=== PATIENT | female | born 1995 | race Caucasian/White ===

== ENCOUNTER 2021-03-01 13:33 | Emergency (ER) | payer OTHER, SELFPAY ==
[2021-03-01 13:35] VITALS: BP 126/81; PULSE 89; RESP 20; TEMP 36.2; BMI 28.0
--- NOTE | 2021-03-01 14:13 | ED.VIS.GI ---
HPI HPI - GI History of Present Illness Chief Complaint: Abd Pain Informant: patient and spouse/S.O. Narrative Narrative: Increasing mid abdominal pain since 11 AM this morning. States ate a salad symptoms worsen. Nausea vomiting x1 upon arrival. Pain to the back. No abdominal surgery history. No urinary symptoms. Currently nauseated. No history of similar. Occasional alcohol use. Currently on menstrual period. Denies any history of similar symptoms. Took Tylenol early this morning due to stating stomach did not feel well. Had normal bowel movement this morning. Prior similar symptoms: No PFSH PFSH Medical History no medical history Home Medications Tylenol 1 g PO/SL X1 03/01/21 [History Last Taken Unknown] omeprazole 40 mg PO DAILY #30 cap 03/01/21 [Rx Last Taken Unknown] ondansetron 4 mg PO Q6H PRN #10 tab 03/01/21 [Rx Last Taken Unknown] Allergy/AdvReac Type Severity Reaction Status Date / Time Penicillins Allergy Mild allergic Verified 03/01/21 13:51 rxn Social History Smoking Status: Never smoker ROS ROS ED Constitutional Constitutional ED: Denies chills, fever(s) or sweats Eyes Eyes: Denies change in vision ENT ENT ED: Denies dysphagia or sore throat Cardiovascular Cardiovascular: Denies chest pain, leg edema, palpitations or racing heartbeat Respiratory/Chest Respiratory/Chest: Denies cough, dyspnea or dyspnea on exertion Gastrointestinal Gastrointestinal: Reports abdominal pain, nausea and vomiting; Denies diarrhea Genitourinary Genitourinary ED: Denies dysuria, hematuria or urinary frequency Musculoskeletal Musculoskeletal: Denies back pain, extremity pain or neck pain Integumentary Denies rash or wounds Neurologic Neurologic: Denies headache(s), paresthesias or weakness EXAM Physical Exam Const Vital Signs: 03/01/21 13:35 03/01/21 16:32 Temperature 97.2 F L Temperature Source Oral Pulse Rate 89 Respiratory Rate 20 H 18 Blood Pressure 126/81 H 134/84 H Blood Pressure Mean 96 100 Positive well nourished and well developed General Appearance ED: well developed and NAD HEENT Reports moist mucous membranes normocephalic and atraumatic Eyes PERRL, EOMs intact bilaterally and conjunctivae normal General Eye ED: Yes normal appearance of both eyes Neck no lymphadenopathy and supple General: Negative for tenderness Chest Wall Chest: Negative for tenderness Resp normal respiratory effort and normal air movement Effort and Inspection: symmetric chest movement; Negative for respiratory distress Cardio regular rate, regular rhythm and no murmurs Peripheral Pulses: pulses 2+ throughout GI normal to inspection, nondistended, normoactive bowel sounds GI Narrative: Tender palpation mid abdomen there is mild tenderness right upper quadrant. There is no guarding or rebound. Negative Weber's or McBurney's tenderness. Palpation: Negative for guarding or rebound tenderness present Back/Spine no CVA tenderness and no thoracic nor lumbar tenderness Extremity normal to inspection General Extremety ED: Negative for edema or tenderness General Extremity: Negative for edema Neuro oriented x3 and no sensory deficits noted Sensorium / Orientation: awake and alert Skin no rashes or lesions noted and no wounds MDM MDM MDM Narrative Medical decision making narrative: Patient vital signs stable nonsurgical abdomen. Abdominal labs were normal. Is given IV fluids Zofran Toradol reevaluation improvement of symptoms. Reevaluation of abdomen remains soft. Tolerating oral intake. Prescription for Zofran will start her on a PPI with epigastric pain. She follow-up with her PCP. She will monitor her diet specially if symptoms worsen with dairy or fatty foods for potential biliary colic. All questions were answered. Patient is being discharged under pandemic conditions under declared global, national and state disaster activation, with limited medical resources. Patient and community understands this. Results discussed in layman's terms to the patient satisfaction. All questions answered in layman's terms. Patient understands importance of follow-up care as directed. Patient has been instructed to return to the ED immediately if new symptoms, problems, or questions occur. We mutually agree with the plan of disposition. The patient understand that they may call or return with any questions or concerns at any time. Lab Data Attestation: I reviewed the patient's lab results. Labs: Laboratory Results - last 24 hr 03/01/21 03/01/21 03/01/21 15:15 15:15 15:15 WBC 9.3 RBC 4.20 Hgb 11.9 L Hct 36.7 L MCV 87.4 MCH 28.3 MCHC 32.4 RDW Std Deviation 40.9 RDW Coeff of Nicko 12.9 Plt Count 195 MPV 9.1 Immature Gran % (Auto) 0.500 Neut % (Auto) 82.5 H Lymph % (Auto) 8.8 L [place] % (Auto) 7.3 Eos % (Auto) 0.6 Baso % (Auto) 0.3 Absolute Neuts (auto) 7.7 Absolute Lymphs (auto) 0.82 L Nucleated RBC % 0 Sodium 141 Potassium 3.3 L Chloride 110 H Carbon Dioxide 23.0 Anion Gap 8 BUN 11 Creatinine 0.60 Estim Creat Clear Calc 149.79 Est GFR (MDRD) Af Amer 156 Est GFR (MDRD) Non-Af 129 BUN/Creatinine Ratio 18.4 Glucose 94 Calcium 7.4 L Total Bilirubin 0.60 Direct Bilirubin 0.16 AST 10 L ALT 19 Alkaline Phosphatase 64 Total Protein 6.2 L Albumin 3.2 Globulin 3.0 Lipase 40 L Serum , Qual NEGATIVE Discharge Plan Triage Chief Complaint: Abd Pain ED Provider: Neo Woodard Dx/Rx/DC Orders Clinical Impression: Abdominal pain, Vomiting Instructions: Abdominal Pain, ED Diet for Vomiting or ... Prescriptions: New omeprazole 40 mg capsule,delayed release(DR/EC) 40 mg PO DAILY Qty: 30 RF: 0 ondansetron 4 mg tablet,disintegrating 4 mg PO Q6H PRN (Reason: nausea and vomiting) Qty: 10 RF: 0 No Action Tylenol 1 g PO/SL X1 RF: 0 Primary Care Provider: Care Physician,No Primary Referrals: Irma Garcia MD [STAFF PHYSICIAN] - 1 Week Care Physician,No Primary [Primary Care Provider] - Disposition Disposition: Home, Self Care Discharge Date/Time: 03/01/21 16:41
[2021-03-01] MEDS: Ketorolac 15 MG/ML Vial IV (14:29)
[2021-03-01] MEDS: Ondansetron 4 MG/2 ML Vial IV (14:29)
[2021-03-01] MEDS: 0.9% Normal Saline 1,000 ML 1000 ML IV (14:29)
[2021-03-01 15:37] LABS: Internal QC Validated? YES +Cl - CLEAR BKGD; Pregnancy, Serum, hCG Quali. NEGATIVE Negative
[2021-03-01 15:42] LABS: Absolute Lymphocyte Count 0.82 X10^3/uL (0.83-4.51); Absolute Neutrophil Count 7.7 X10^3/uL (2.0-7.7); Basophil# 0.03 X10^3/uL; Basophil% 0.3 % (0-1); Eosinophil# 0.06 X10^3/uL; Eosinophils% 0.6 % (0-5); Hematocrit 36.7 % (37-47); Hemoglobin 11.9 g/dL (12.0-15.0); Lymphocyte # 0.82 X10^3/ul (0.83-4.51); Lymphocyte % 8.8 % (19-41); Mean Corp Hgb Conc 32.4 g/dL (32-36); Mean Corpuscular Hgb 28.3 pg (27.0-32.0); Mean Corpuscular Volume 87.4 fL (81-99); Mean Platelet Vol. 9.1 fl (6.2-12.0); Monocyte# 0.68 X10^3/uL; Monocyte% 7.3 % (0-10); NRBC Flagged by Analyzer 0 % (0-5); Neutrophil # 7.69 X10^3/uL (2.7-7.7); Neutrophil % 82.5 % (47-70); Platelet Count 195 K/mm3 (150-450); RBC Distribution Width CV 12.9 % (11.6-14.6); RBC Distribution Width SD 40.9 fl (35.1-43.9); White Blood Count 9.3 K/mm3 (4.4-11.0)
[2021-03-01 15:43] LABS: AST(SGOT) 10 U/L (15-37); Alanine Aminotransfer ALT/SGPT 19 U/L (13-56); Albumin, Serum 3.2 g/dL (3.2-5.0); Alkaline Phosphatase 64 U/L (45-117); Anion Gap 8 (5-15); BUN 11 mg/dL (7-18); BUN/Creat Ratio 18.4 RATIO (10-20); Bilirubin, Direct 0.16 mg/dL (0.00-0.30); Calcium,Total 7.4 mg/dL (8.5-10.1); Chloride 110 mmol/L (98-107); EST Glomerular Filtration Rate 129 mL/min (>60); Est Glom Filt Rate - Afr Amer 156 mL/min (>60); Estimated Creatinine Clearance 149.79 ml/min; Glucose 94 mg/dL (74-106); Lipase 40 U/L (73-393); Potassium 3.3 mmol/L (3.5-5.1); Protein, Total 6.2 g/dL (6.4-8.2); Sodium Level 141 mmol/L (136-145)
[2021-03-01 16:32] VITALS: BP 134/84; RESP 18
== END 2021-03-01 16:41 | disposition home or self-care (01) ==
PROVIDERS: Emergency Provider Emergency Medicine
DX: R10.13 Epigastric pain (principal); R11.2 Nausea with vomiting, unspecified
CPT/HCPCS: 80048; 80076; 83690; 84703; 85025; 96361; 96374; 96375; 99282; J7030; A4216; J2405

== ENCOUNTER 2025-01-03 19:19 | Inpatient (IN) | payer OTHER, SELFPAY ==
--- OUTSIDE RECORDS SUMMARY | 2025-01-03 19:06 | XMS RPT_ITS | CCD ---
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 Role Phone Unavailable Primary Care Provider Unavailrandall e Willie Hudsona Attending Unavailable Wiswell, Carol Referring Unavailable Care Physician, No Primary Primary Care Unava ilable Willie Hudsona Admitting Unavailable ALISIAAYANNA REEVESFER Referring Unavailable ALISIA, CALLI Attending Unavailable ALISIA, CALLI Referring Unavailable MONICA FRANCE Attending Unavailable WISWELL, CAROL Attending Unavailable ALISIA, CALLI Attending Unavailable WISWELL, CAROL Attending Unavailable ROCHELLE REIS Attending Unavailable ALISIA, CALLI Referring Unavailable CHRISTINE LEYVA Attending Unavailable JOSEPHINE BRUCE Attending Unavail able ROCHELLE REIS Attending Unavailable WISWELL, CAROL Attending Unavailable HAURY, VINOD Referring Unavailable TRAMMELLFIDELIA Attending Unavailable ALISIA, CALLI Referring Unavailable HAURY, VINOD Attending Unavailable ALISIA, CALLI Attending Unavailable GIANNA, ORQUIDEA Referring Unavailable ALISIA, CALLI Attending Unavailable GIANNA, ORQUIDEA Attending Unavailable ALISIA, CALLI Attending Unavailable Allergies Allergy Classification Reported Allergen(s) Allergy Type Date of Onset Reaction(s) Facility (7 sources) Penicillins; Translations: [PENICILLINS] Propensity to adverse reactions to drug 0 Other: See Comments [facility] (3 sources) Penicillins Propensity to adverse reactions to drug 0 Other: See Comments [facility] (1 source) Penicillins Drug allergy (disorder) 1 [facility] Repository Medications Current Medications Medication Drug Class(es) Dates Sig (Normalized) Sig (Original) aspirin 81 mg delayed release oral tablet (20 sources) Platelet Aggregation Inhibitor, Nonsteroidal Anti-inflammatory Drug Start: 05-18-2024 take 1 tablet by mouth once daily aspirin, enteric coated (ECOTRIN LOW STRENGTH) 81 mg EC tablet Indications: 7 weeks gestation of (HCC) Take 1 tablet by mouth once daily. 90 tablet 3 05/18/2024 Active omeprazole 40 mg delayed release oral capsule (1 source) Proton Pump Inhibitor Start: 03-01-2021 End: 05-18-2024 take 1 capsule by mouth once daily omeprazole (PRILOSEC) 40 mg capsule Take 40 mg by mouth once daily. 03/01/2021 05/18/2024 Discontinued ondansetron 4 mg disintegrating oral tablet (1 source) Serotonin-3 Receptor Antagonist Start: 03-01-2021 End: 05-18-2024 take 1 tablet by mouth every six hours as needed ondansetron orally disintegrating (ZOFRAN ODT) 4 mg disintegrating tablet Take 4 mg by mouth every 6 hours as needed. 03/01/2021 05/18/2024 Discontinued vit no.124/iron/folic ( VITAMIN ORAL) (20 sources) vit no.124/iron/folic ( VITAMIN ORAL) Take by mouth once daily. Active Completed/Discontinued Medications Medication Drug Class(es) Dates Sig (Normalized) Sig (Original) amoxicillin 50 mg/ml oral suspension (2 sources) Penicillin-class Antibacterial Start: 10-20-2024 End: 10-20-2024 250 mg, ORAL, ONCE (UP TO 30 DAYS AMB), 1 dose, On Sat10/20/24 at 1500, 125 mg/ml concentration used during today's visit. Give 25mg amoxicillin suspension, wait 30 minutes. If there is no adverse reaction after 30 minutes , administer the remaining 225mg of amoxicillin suspension and monitor for an additional 31 minutes. Vital Signs recorded at baseline, PRN with symptoms, and at oral challenge completion. Refrigerate - Shake Well., Antimicrobial indication: Prophylaxis Start: 10-20-2024 End: 10-20-2024 amoxicillin 250 mg oral liqu id (AMOXIL) Problems Active Problems Problem Classification Problem Date Documented Da te Episodic/Chronic Complications of surgical procedures or medical care (2 sources) Non dose-related adverse reaction to medication; Translations: [Unspecified adverse effect of drug or medicament, initial encounter] Onset: 10-20-2024 10-20-2024 Episodic Diabetes or abnormal glucose tolerance complicating ; childbirth; or the puerperium (1 source) and type 1 diabetes mellitus; Translations: [Pre-existing type 1 diabetes mellitus, in , unspecified trimester] 07-17-2024 Chronic Immunizations and screening for infectious disease (2 sources) Vaccination needed; Translations: [Encounter for immunization] Onset: 10-22-2024 10-22-2024 Episodic Other complications of (9 sources) Obesity; Translations: [Obesity complicating , unspecified trimester] 10-09-2024 Chronic Other complications of (1 source) Obesity complicating , unspecified trimester; Translations: [Obesity in (HCC)] Onset: 12-18-2024 Chronic Other complications of (11 sources) High risk ; Translations: [Supervision of high risk , unspecified, second trimester] 07-17-2024 Episodic Other complications of (1 source) Supervision of high risk , unspecified, third trimester; Translations: [Supervision of high risk in third trimester (HCC)] Onset: 12-18-2024 Episodic Other complications of (1 source) Supervision of high risk , unspecified, second trimester; Translations: [Supervision of high risk in second trimester (HCC)] Onset: 10-09-2024 Episodic Other and delivery including normal (20 sources) with uncertain dates; Translations: [Encounter for supervision of normal , unspecified, unspecified trimester] Onset: 05-18-2024 05-18-2024 Episodic Residual codes; unclassified (1 source) Gestation period, 7 weeks; Translations: [Less than 8 weeks gestation of ] 05-18-2024 Episodic Residual codes; unclassified (1 source) Gestation period, 11 weeks; Translations: [11 weeks gestation of ] 06-19-2024 Episodic Residual codes; unclassified (1 source) Gestation period, 15 weeks; Translations: [15 weeks gestation of ] 07-17-2024 Episodic Residual codes; unclassified (1 source) Gestation period, 12 weeks; Translations: [12 weeks gestation of ] 07-17-2024 Episodic Residual codes; unclassified (2 sources) Gestation period, 23 weeks; Translations: [23 weeks gestation of ] 09-10-2024 Episodic Residual codes; unclassified (1 source) Gestation period, 27 weeks; Translations: [27 weeks gestation of ] 10-09-2024 Episodic Residual codes; unclassified (1 source) Gestation period, 29 weeks; Translations: [29 weeks gestation of ] 10-22-2024 Episodic Residual codes; unclassified (1 source) Gestation period, 31 weeks; Translations: [31 weeks gestation of ] 11-05-2024 Episodic Residual codes; unclassified (1 source) Gestation period, 33 weeks; Translations: [33 weeks gestation of ] 11-20-2024 Episodic Residual codes; unclassified (1 source) Gestation period, 34 weeks; Translations: [34 weeks gestation of ] 11-26-2024 Episodic Residual codes; unclassified (1 source) Gestation period, 35 weeks; Translations: [35 weeks gestation of ] 12-04-2024 Episodic Residual codes; unclassified (1 source) Gestation period, 36 weeks; Translations: [36 weeks gestation of ] 12-11-2024 Episodic Residual codes; unclassified (1 source) Gestation period, 37 weeks; Translations: [37 weeks gestation of ] 12-18-2024 Episodic Residual codes; unclassified (1 source) Gestation period, 38 weeks; Translations: [38 weeks gestation of ] 12-25-2024 Episodic Residual codes; unclassified (1 source) 39 weeks gestation of ; Translations: [39 weeks gestation of (HCC)] Onset: 12-31-2024 Episodic Residual codes; unclassified (1 source) 38 weeks gestation of ; Translations: [38 weeks gestation of (HCC)] Onset: 12-25-2024 Episodic Residual codes; unclassified (1 source) 37 weeks gestation of ; Translations: [37 weeks gestation of (HCC)] Onset: 12-18-2024 Episodic Residual codes; unclassified (1 source) 36 weeks gestation of ; Translations: [36 weeks gestation of (HCC)] Onset: 12-11-2024 Episodic Residual codes; unclassified (1 source) 35 weeks gestation of ; Translations: [35 weeks gestation of (HCC)] Onset: 12-04-2024 Episodic Residual codes; unclassified (1 source) 34 weeks gestation of ; Translations: [34 weeks gestation of (HCC)] Onset: 11-26-2024 Episodic Residual codes; unclassified (1 source) 33 weeks gestation of ; Translations: [33 weeks gestation of (HCC)] Onset: 11-20-2024 Episodic Residual codes; unclassified (1 source) 31 weeks gestation of ; Translations: [31 weeks gestation of (HCC)] Onset: 11-05-2024 Episodic Residual codes; unclassified (1 source) 29 weeks gestation of ; Translations: [29 weeks gestation of (HCC)] Onset: 10-22-2024 Episodic Residual codes; unclassified (1 source) 27 weeks gestation of ; Translations: [27 weeks gestation of (HCC)] Onset: 10-09-2024 Episodic Unclassified (20 sources) [facility] Education - COMMON Onset: 05-18-2024 05-18-2024 Unclassified (20 sources) Education - [place] Onset: 05-18-2024 05-18-2024 Past or Other Problems Problem Classification Problem Date Documented Da te Episodic/Chronic Allergic reactions (19 sources) Allergy to penicillin; Translations: [Allergy status to penicillin] Onset: 07-17-2024 07-17-2024 Episodic Menstrual disorders (20 sources) Dysmenorrhea; Translations: [Dysmenorrhea, unspecified] Onset: 06-30-2013 Resolved: 05-18-2024 05-18-2024 Chronic Other female genital disorders (20 sources) Abnormal uterine bleeding; Translations: [Abnormal uterine and vaginal bleeding, unspecified] Onset: 06-30-2013 Resolved: 05-18-2024 05-18-2024 Chronic Other screening for suspected conditions (not mental disorders or infectious disease) (9 sources) Cancer cervix screening status; Translations: [Encounter for screening for malignant neoplasm of cervix] Onset: 08-14-2024 05-18-2024 Episodic Residual codes; unclassified (1 source) 23 weeks gestation of ; Translations: [23 weeks gestation of (HCC)] Onset: 09-10-2024 Episodic Residual codes; unclassified (1 source) Less than 8 weeks gestation of ; Translations: [7 weeks gestation of ] Onset: 06-19-2024 Episodic Results Test Name Value Interpretation Reference Range Facil ity URINE OB DIP B/OOrdered By: Zoe Gray on 12-25-2024 Glucose Ql (U) Negative Neg mg/dL [facility] Interpretation and review of laboratory results Normal [facility] Protein.monoclonal (U) [Mass/Vol] Negative Neg mg/dL [facility] URINE OB DIP B/Oon 5 Glucose Ql (U) Negative Neg mg/dL [facility] Interpretation and review of laboratory results Normal [facility] Protein.monoclonal (U) [Mass/Vol] Negative Neg mg/dL [facility] ROUTINE, GROUP B ST REPTOCOCCUS BY PCRon 12-11-2024 ROUTINE, GROUP B STREPTOCOCCUS BY PCR Not detected Normal [facility] Comment on above: Performed By: #### R UBIGG #### [facility] CLIA [id number] [address] [place] [address] STATES OF [facility] URINE OB DIP B/Oon 5 Glucose Ql (U) Negative Neg mg/dL [facility] Interpretation and review of laboratory results Normal [facility] Protein.monoclonal (U) [Mass/Vol] Negative Neg mg/dL [facility] URINE OB DIP B/Oon 5 Glucose Ql (U) Negative Neg mg/dL [facility] Interpretation and review of laboratory results Normal [facility] Protein.monoclonal (U) [Mass/Vol] Negative Neg mg/dL [facility] ALLERGEN SKIN TEST-PENICILLI Non 10-20-2024 ANTIBIOTIC PERCUTANEOUS AND INTRADERMAL SKIN TESTING/ Mean Wheal & Flare Diameter (mm) Patient has been identified by name and date of : Yes . Skin test applied by : Cristina Gibson RN Interpreted By: Lorelei Roblero M.D. and Fidelia Trammell M.D. * Clinical significant reactions are regarded as a wheal diameter greater than or equal to 3 mm with a flare diameter greater or equal to 6mm. ALLERGENS Negative Control (50% glycerin/50% cocas for prick and HSA for intradermal) P: W = 0 mm F = 0 mm ID:W = 0 mm F = 0 mm PENICILLIN GK 10,000 UNITS/ML P: W = 0 mm F = 0 mm ID: W = 0 mm F = 0 mm PREPEN -(benzylpenicilloyl polylysine) full strength P: W = 0 mm F = 0mm ID: W = 0 mm F = 0 mm HISTAMINE- positive control (Histamine base 6mg/ml)for Prick and 0.1 mg/ml for intradermal P: W = 6 mm F = 24 mm ID:W = 7 mm F = 25 mm [facility] CNOVon 10-20-2024 CNOV Office Visit (ALLMED) KAUR KING ([id number]) 1995 F Date Time Provider Department 10/20/24 1:15 PM FIDELIA TRAMMELL During your visit today, we recorded the following information about you: Pulse Blood pressure Weight 68/minute 109/70 105.3 kg Fidelia Trammell MD 10/21/2024 9:45 PM Signed ASSESSMENT/PLAN: -History of allergy to penicillin and/or penicillin-type antibiotic: Allergy skin tests to penicillin were negative. The patient took amoxicillin in a graded fashion and tolerated this without adverse reaction. The patient is at low risk for a severe, immediate, IgE-mediated reaction to penicillin, amoxicillin and other penicillin-type antibiotics. Skin tests and oral challenges are unreliable for predicting delayed reactions. - Discussed medication dosage, usage, side effects, and goals of treatment in detail. - Follow-up in PRN - patient will return sooner should new symptoms or problems arise. Fidelia Trammell MD Allergy AND Immunology This is a consultation requested by Vinod Griffin APRN, CNP for an allergy and immunology evaluation. My final recommendations will be communicated back to the requesting healthcare provider(s) by way of shared medical record or via [place] mail. Kaur King is a 29 year old female who presents for further evaluation of possible penicillin allergy. Details of prior reaction unknown. She does not recall taking penicillin antibiotics. Denies recent use of antihistamines. 29 weeks . History of childhood eczema REVIEW OF SYSTEMS: All other review of systems negative except for those listed above. PAST MEDICAL HISTORY Diagnosis Date PMH - PAST MEDICAL HISTORY OF age 11-12 years menarche PMH - PAST MEDICAL HISTORY OF 12/27/09 normal color vision MEDICATIONS: aspirin, enteric coated (ECOTRIN LOW STRENGTH) 81 mg EC tablet Take 1 tablet by mouth once daily. vit no.124/iron/folic ( VITAMIN ORAL) Take by mouth once daily. ALLERGIES: Allergies As of Date: 10/20/2024 Allergen Noted Reaction PENICILLINS 03/31/2010 Other: See Comments Fully Assessed 10/09/2024 PAST SURGICAL HISTORY Procedure Laterality Date PAST SURGICAL HISTORY OF abscess on tonsils TONSILLECTOMY AND ADENOIDECTOMY AGE 12/> 12/06/09 FAMILY HISTORY: Allergic rhinitis:no. Asthma: no. Eczema: no. Cystic fibrosis: no. Immunodeficiency: no. SOCIAL HISTORY: Employer And Job Title: None on file Years Of Education Completed: Not specified Marital Status: Social History Tobacco Use Smoking status: Never Passive exposure: Yes Smokeless tobacco: Never Tobacco comments: mom smokes inside ENVIRONMENTAL HISTORY: Lives in a house Age of home: 97 years Heating: electric Woodburning fireplace in the home: no Air conditioning: Central air Basement: Dry basement Miguelangel: Hardwood floor Dust mite controls: Dust mite controls are already in place, mattress only Pets in the home: 2 dogs Outdoor animals: There are no outdoor animals Tobacco smoke: No exposure in the home. Physical Exam: GENERAL APPEARANCE:Well appearing, alert, in no acute distress, well-hydrated, well nourished. HEENT: NCAT. EYES: conjunctiva and sclera normal. EARS: External ears normal. Canals clear. TM's normal. NOSE/SINUS: Nares normal. Septum midline. Mucosa normal. No drainage or sinus tenderness. THROAT: no erythema NECK:neck supple, no adenopathy HEART:RRR with normal S1 and S2 ,no murmurs, no gallops, no rubs LUNGS: clear to auscultation bilaterally, no wheezes, rales or rhonchi EXTREMITIES:Extremit ies normal, No deformities, No skin discoloration, and No edema SKIN: Skin color, texture, turgor normal. No rashes or lesions. ALLERGY SKIN TESTS: Completed on 10/20/2024 Negative to penicillin and Pre-Pen on both prick and intradermal tests. Graded in office challenge to amoxicillin: The risks, including risk of anaphylaxis, benefits, alternatives and personnel for a graded in-office challenge to amoxicillin were discussed. Written consent was obtained. Patient took amoxicillin 25 mg by mouth. About 23 minutes after taking the first dose, she complained of mild itching in the mouth and throat. Vital signs were stable. Physical exam remained normal. Patient drank some water and ate some will crackers. 40 minutes after taking the initial dose of amoxicillin the symptoms had resolved without treatment. Patient then took amoxicillin 100 mg by mouth and was monitored for 20 minutes. Finally, she took amoxicillin 125 mg and was monitored for 20 minutes afterwards. Tolerated the amoxicillin without adverse reaction. Mag Mcclain LPN 10/21/2024 9:45 PM Signed Patient is here for Penicillin testing. She is unsure if she had when younger. Both mother and father have a Penicillin allergy. (more content not included)... Normal [facility] INGESTION CHALLENGE TESTon 0 10-20-2024 Graded Oral Antibiotic Challenge 125 mg/5 ml amoxicillin Start Time: 1450 1450: Administered 1 ml of amoxicillin .1509: Patient complained of throat itching and roof of mouth itching and heart burn. DR. Trammell notified . 115/68-74-99% added additional 10 minutes of wait time. 1533: Administered 4 ml of amoxicillin. Patient asymptomatic after 20 minutes minutes. 1554: adminstered 5 ml of amoxicillin and observed for 20 minutes. Asymptomatic after 20 minutes. 109/70-76-100 % 1617: Challenge ended. Patient left office asymptomatic. [facility] No Panel InformationOrdered By: Cristina Gibson on 10-20-2024 [facility] CBC W Auto Differential pane l (Bld)on 10-09-2024 Basophils (Bld) [#/Vol] 0.04 10*3/uL Normal <0.11 [facility] Comment on above: Order Comment: Speci men Type: BLOOD SPECIMEN Ordering Facility: [facility] Address: [address] [place] [address] Performed By: #### R UBIGG #### [facility] CLIA [id number] [address] [place] [address] [place] [address] [place] Basophils/100 WBC (Bld) 0.4 % Normal [facility] Comment on above: Order Comment: Speci men Type: BLOOD SPECIMEN Ordering Facility: [facility] Address: [address] [place] [address] Performed By: #### R UBIGG #### [facility] CLIA [id number] [address] [place] [address] [place] Differential cell count method Nom (Bld) Auto Normal [facility] Comment on above: Order Comment: Speci men Type: BLOOD SPECIMEN Ordering Facility: [facility] Address: [address] [place] [address] Performed By: #### R UBIGG #### [facility] CLIA [id number] [address] [place] [address] [place] Eosinophils (Bld) [#/Vol] 0.13 10*3/uL Normal <0.46 [facility] Comment on above: Order Comment: Speci men Type: BLOOD SPECIMEN Ordering Facility: [facility] Address: [address] [place] [address] Performed By: #### R UBIGG #### [facility] CLIA [id number] [address] [place] [address] [place] Eosinophils/100 WBC (Bld) 1.2 % Normal [facility] Comment on above: Order Comment: Speci men Type: BLOOD SPECIMEN Ordering Facility: [facility] Address: [address] [place] [address] Performed By: #### R UBIGG #### [facility] CLIA [id number] [address] [place] [address] [place] Erythrocyte distribution width (RBC) [Ratio] 13.2 % Normal 11.5-15.0 [facility] Comment on above: Order Comment: Speci men Type: BLOOD SPECIMEN Ordering Facility: [facility] Address: [address] [place] [address] Performed By: #### R UBIGG #### [facility] CLIA [id number] [address] [place] [address] [place] Hematocrit (Bld) [Volume fraction] 33.6 % Low 36.0-46.0 [facility] Comment on above: Order Comment: Speci men Type: BLOOD SPECIMEN Ordering Facility: [facility] Address: [address] [place] [address] Performed By: #### R UBIGG #### [facility] CLIA [id number] [address] [place] [address] [place] Hemoglobin (Bld) [Mass/Vol] 11.3 g/dL Low 11.5-15.5 [facility] Comment on above: Order Comment: Speci men Type: BLOOD SPECIMEN Ordering Facility: [facility] Address: [address] [place] [address] Performed By: #### R UBIGG #### [facility] CLIA [id number] [address] [place] [address] [place] Immature granulocytes (Bld) [#/Vol] 0.06 10*3/uL Normal <0.10 [facility] Comment on above: Order Comment: Speci men Type: BLOOD SPECIMEN Ordering Facility: [facility] Address: [address] [place] [address] Performed By: #### R UBIGG #### [facility] CLIA [id number] [address] [place] [address] [place] Immature granulocytes/100 WBC (Bld) 0.6 % Normal [facility] Comment on above: Order Comment: Speci men Type: BLOOD SPECIMEN Ordering Facility: [facility] Address: [address] [place] [address] Performed By: #### R UBIGG #### [facility] CLIA [id number] [address] [place] [address] [place] Lymphocytes (Bld) [#/Vol] 1.70 10*3/uL Normal 1.00-4.00 [facility] Comment on above: Order Comment: Speci men Type: BLOOD SPECIMEN Ordering Facility: [facility] Address: [address] [place] [address] Performed By: #### R UBIGG #### [facility] CLIA [id number] [address] [place] [address] [place] Lymphocytes/100 WBC (Bld) 15.7 % Normal [facility] Comment on above: Order Comment: Speci men Type: BLOOD SPECIMEN Ordering Facility: [facility] Address: [address] [place] [address] Performed By: #### R UBIGG #### [facility] CLIA [id number] [address] [place] [address] [place] MCH (RBC) [Entitic mass] 28.7 pg Normal 26.0-34.0 [facility] Comment on above: Order Comment: Speci men Type: BLOOD SPECIMEN Ordering Facility: [facility] Address: [address] [place] [address] Performed By: #### R UBIGG #### [facility] CLIA [id number] [address] [place] [address] [place] MCHC (RBC) [Mass/Vol] 33.6 g/dL Normal 30.5-36.0 [facility] Comment on above: Order Comment: Speci men Type: BLOOD SPECIMEN Ordering Facility: [facility] Address: [address] [place] [address] Performed By: #### R UBIGG #### [facility] CLIA [id number] [address] [place] [address] [place] MCV (RBC) [Entitic vol] 85.3 fL Normal 80.0-100.0 [facility] Comment on above: Order Comment: Speci men Type: BLOOD SPECIMEN Ordering Facility: [facility] Address: [address] [place] [address] Performed By: #### R UBIGG #### [facility] CLIA [id number] [address] [place] [address] [place] Monocytes (Bld) [#/Vol] 0.64 10*3/uL Normal <0.87 [facility] Comment on above: Order Comment: Speci men Type: BLOOD SPECIMEN Ordering Facility: [facility] Address: [address] [place] [address] Performed By: #### R UBIGG #### [facility] CLIA [id number] [address] [place] [address] [place] Monocytes/100 WBC (Bld) 5.9 % Normal [facility] Comment on above: Order Comment: Speci men Type: BLOOD SPECIMEN Ordering Facility: [facility] Address: [address] [place] [address] Performed By: #### R UBIGG #### [facility] CLIA [id number] [address] [place] [address] [place] Neutrophils (Bld) [#/Vol] 8.25 10*3/uL High 1.45-7.50 [facility] Comment on above: Order Comment: Speci men Type: BLOOD SPECIMEN Ordering Facility: [facility] Address: [address] [place] [address] Performed By: #### R UBIGG #### [facility] CLIA [id number] [address] [place] [address] [place] Neutrophils/100 WBC (Bld) 76.2 % Normal [facility] Comment on above: Order Comment: Speci men Type: BLOOD SPECIMEN Ordering Facility: [facility] Address: [address] [place] [address] Performed By: #### R UBIGG #### [facility] CLIA [id number] [address] [place] [address] [place] Nucleated RBC (Bld) [#/Vol] 10*3/uL Normal <0.01 [facility] Comment on above: Order Comment: Speci men Type: BLOOD SPECIMEN Ordering Facility: [facility] Address: [address] [place] [address] Performed By: #### R UBIGG #### [facility] CLIA [id number] [address] [place] [address] [place] Nucleated RBC/100 WBC (Bld) [Ratio] 0.0 /100 WBC Normal [facility] Comment on above: Order Comment: Speci men Type: BLOOD SPECIMEN Ordering Facility: [facility] Address: [address] [place] [address] Performed By: #### R UBIGG #### [facility] CLIA [id number] [address] [place] [address] [place] Platelet mean volume (Bld) [Entitic vol] 9.6 fL Normal 9.0-12.7 [facility] Comment on above: Order Comment: Speci men Type: BLOOD SPECIMEN Ordering Facility: [facility] Address: [address] [place] [address] Performed By: #### R UBIGG #### [facility] CLIA [id number] [address] [place] [address] [place] Platelets (Bld) [#/Vol] 235 10*3/uL Normal 150-400 [facility] Comment on above: Order Comment: Speci men Type: BLOOD SPECIMEN Ordering Facility: [facility] Address: [address] [place] [address] Performed By: #### R UBIGG #### [facility] CLIA [id number] [address] [place] [address] [place] RBC (Bld) [#/Vol] 3.94 10*6/uL Normal 3.90-5.20 [facility] Comment on above: Order Comment: Speci men Type: BLOOD SPECIMEN Ordering Facility: [facility] Address: [address] [place] [address] Performed By: #### R UBIGG #### [facility] CLIA [id number] [address] [place] [address] [place] WBC (Bld) [#/Vol] 10.82 10*3/uL Normal 3.70-11.00 [facility] Comment on above: Order Comment: Speci men Type: BLOOD SPECIMEN Ordering Facility: [facility] Address: [address] [place] [address] Performed By: #### R UBIGG #### [facility] CLIA [id number] [address] [place] [address] [place] GESTATIONAL GLUCOSE SCREEN, 1-HOUR, 50 GRAM, NON-FASTINGon 10-09-2024 Glucose [Mass/Vol] 109 mg/dL Normal 74-134 [facility] Comment on above: Order Comment: Speci men Type: BLOOD SPECIMEN Ordering Facility: [facility] Address: [address] [place] [address] Result Comment: [facility] Congress of Obstetricians and Gynecologists (Benton/Khoa) guidelines state a gestational diabetes mellitus positive screen is made, in women not previously diagnosed with overt diabetes, when the 1 hr plasma glucose level is equal to or above 140 mg/dL. The [facility] Associate Professor Of Literacy and Women's Health Bernice recommends a 135 mg/dL cutoff. Performed By: #### G LTGST #### [id number] [address] [place] [address] [place] Reagin and Treponema pallidu m IgG and IgM [Interp]on 10-09-2024 T. pallidum IgG+IgM IA Ql (S) Non-Reactive Normal Nonreactive [facility] Comment on above: Order Comment: Speci men Type: BLOOD SPECIMEN Ordering Facility: [facility] Address: [address] [place] [address] Performed By: #### 7 3752-8 #### [facility] CLIA [id number] [address] [place] [address] [place] Reagin+T pallidum IgG+IgM Se rPl-Impon 10-09-2024 Reagin and Treponema pallidum IgG and IgM [Interp] Cannot exclude recent Treponemal infection if specimen collected within 7-10 days after appearance of suspect lesions or 2-3 weeks after an exposure. Clinical correlation is required. Normal [facility] Comment on above: Order Comment: Speci men Type: BLOOD SPECIMEN Ordering Facility: [facility] Address: [address] [place] [address] Performed By: #### 7 3752-8 #### [facility] CLIA [id number] [address] [place] [address] STATES OF [facility] Examination level ultrasound on 09-10-2024 [facility] Radiology Study observation (narrative) [facility] Examination level ultrasound on 08-18-2024 Indication Detailed anatomic survey Maternal obesity, BMI >30 Impression REMOTE READ The patient is referred for a detailed anatomic survey. - Single, live, intrauterine . - biometry is consistent with the established gestational age. - No malformations were visualized on a detailed anatomic survey, although some anatomical structures were suboptimally seen as detailed below. - The amniotic fluid volume is normal amount. - The placenta is anterior, fundal. - The Transabdominal cervical length measures 32.4 mm with no evidence of funneling or other dynamic changes. - Not all structural malformations can be detected by ultrasound examination. Recommendations Follow up anatomy scan in 2-3 weeks Maternal Assessment Height 173 cm Height (ft) 5 ft Height (in) 8 in Physical Exam Initial weight (lb) 200 lb Initial BMI 30.41 kg/m Maternal assessment other: 1 Para 0 Method Transabdominal ultrasound examination. View: Suboptimal view: limited by position Salmeron . Number of fetuses: 1 Dating LMP on: 03/28/2024 GA by LMP 19 w + 6 d GARY by LMP: 01/02/2025 GA by prior assessment 19 w + 6 d GARY by prior assessment: 01/02/2025 Ultrasound examination on: 08/14/2024 GA by U/S based upon: AC, BPD, Femur, HC GA by U/S 20 w + 4 d GARY by U/S: 12/28/2024 Assigned: based on stated GARY, selected on 08/14/2024 Assigned GA 19 w + 6 d Assigned GARY: 01/02/2025 General Evaluation Cardiac activity present. FHR 149 bpm. movements: present. Presentation: breech Placenta: Placental site: anterior, fundal Umbilical cord: Cord vessels: 3 vessel cord Amniotic fluid: Amount of AF: normal amount. MVP 4.6 cm Growth Overview Exam date GA BPD (mm) HC (mm) AC (mm) FL (mm) HL (mm) EFW (g) 08/14/2024 19w 6d 46 52% 178.5 64% 156.3 75% 34.5 90% 30.9 69% 372 88% Biometry Standard BPD 46.0 mm 19w 6d 52% Hadlock OFD 64.9 mm 20w 4d 95% Nicolaides HC 178.5 mm 20w 2d 64% Sebastian Cerebellum tr 20.8 mm 19w 6d 71% Hill Nuchal fold 4.1 mm AC 156.3 mm 20w 6d 75% Hadlock Femur 34.5 mm 21w 0d 90% Sebastian Humerus 30.9 mm 20w 2d 69% Sebastian EFW 372 g 20w 4d 88% Hadlock EFW (lb) 0 lb EFW (oz) 13 oz EFW by: Hadlock (HC-AC-FL) Extended Senior Loan Officer 5.3 mm CM 3.5 mm 9% Nicolaides Extremities / Bony Struc FL / HC 0.19 68% Hadlock Other Structures FHR 149 bpm Anatomy Cranium: normal Lateral ventricles: normal Choroid plexus: normal Midline falx: normal Cavum septi pellucidi: normal Cerebellum: normal Cisterna magna: normal Head / Neck Vermis: normal Neck: normal Nuchal fold: normal Lips: normal Profile: normal Nose: normal Face Maxilla: normal Mandible: normal Orbits: normal Lens: normal 4-chamber view: suboptimally visualized RVOT view: suboptimally visualized LVOT view: suboptimally visualized 3-vessel view: normal 6-tqwkhu-jpdkzhs view: normal Heart / Thorax Situs: situs solitus (normal) Aortic arch view: normal SVC: normal IVC: normal Cardiac axis: normal Rt lung: normal Lt lung: normal Diaphragm: normal Cord insertion: normal Stomach: normal Kidneys: normal Bladder: normal Genitals: normal Abdomen Abdom. wall: normal Cervical spine: normal Thoracic spine: normal Lumbar spine: normal Sacral spine: normal Arms: normal Legs: normal Rt upper arm: normal Rt forearm: normal Rt hand: normal Rt fingers: normal Lt upper arm: normal Lt forearm: normal Lt hand: normal Lt fingers: normal Rt upper leg: normal Rt lower leg: normal Rt foot: normal Lt upper leg: normal Lt lower leg: normal Lt foot: normal Gender: Unspecified Wants to know sex: no Maternal Structures Uterus / Cervix Uterus: Visualized Cervix: Visualized Approach: Transabdominal Cervical length 32.4 mm Other: Patient declined transvaginal ultrasound for cervical length. Ovaries / Tubes / Adnexa Rt ovary: Visualized Lt ovary: Not visualized Performed By: hRonda Longoria, AMOL, RVT Read By: Maria C Lombardi M.D. MATERNAL MEDICINE [facility] Examination level ultrasound on 08-14-2024 Radiology Study observation (narrative) [facility] URINE OB DIP B/Oon Glucose Ql (U) Negative Neg mg/dL [facility] Protein.monoclonal (U) [Mass/Vol] Negative Neg mg/dL [facility] CBC W Auto Differential pane l (Bld)on 06-19-2024 Basophils (Bld) [#/Vol] 0.03 10*3/uL Normal <0.11 [facility] Comment on above: Order Comment: Speci men Type: BLOOD SPECIMEN Ordering Facility: [facility] Address: [address] [place] [address] Performed By: #### R UBIGG #### [facility] CLIA [id number] [address] [place] [address] [place] Basophils/100 WBC (Bld) 0.3 % Normal [facility] Comment on above: Order Comment: Speci men Type: BLOOD SPECIMEN Ordering Facility: [facility] Address: [address] [place] [address] Performed By: #### R UBIGG #### [facility] CLIA [id number] [address] [place] [address] [place] Differential cell count method Nom (Bld) Auto Normal [facility] Comment on above: Order Comment: Speci men Type: BLOOD SPECIMEN Ordering Facility: [facility] Address: [address] [place] [address] Performed By: #### R UBIGG #### [facility] CLIA [id number] [address] [place] [address] [place] Eosinophils (Bld) [#/Vol] 0.17 10*3/uL Normal <0.46 [facility] Comment on above: Order Comment: Speci men Type: BLOOD SPECIMEN Ordering Facility: [facility] Address: [address] [place] [address] Performed By: #### R UBIGG #### [facility] CLIA [id number] [address] [place] [address] [place] Eosinophils/100 WBC (Bld) 1.6 % Normal [facility] Comment on above: Order Comment: Speci men Type: BLOOD SPECIMEN Ordering Facility: [facility] Address: [address] [place] [address] Performed By: #### R UBIGG #### [facility] CLIA [id number] [address] [place] [address] [place] Erythrocyte distribution width (RBC) [Ratio] 12.9 % Normal 11.5-15.0 [facility] Comment on above: Order Comment: Speci men Type: BLOOD SPECIMEN Ordering Facility: [facility] Address: [address] [place] [address] Performed By: #### R UBIGG #### [facility] CLIA [id number] [address] [place] [address] [place] Hematocrit (Bld) [Volume fraction] 37.2 % Normal 36.0-46.0 [facility] Comment on above: Order Comment: Speci men Type: BLOOD SPECIMEN Ordering Facility: [facility] Address: [address] [place] [address] Performed By: #### R UBIGG #### [facility] CLIA [id number] [address] [place] [address] [place] Hemoglobin (Bld) [Mass/Vol] 12.6 g/dL Normal 11.5-15.5 [facility] Comment on above: Order Comment: Speci men Type: BLOOD SPECIMEN Ordering Facility: [facility] Address: [address] [place] [address] Performed By: #### R UBIGG #### [facility] CLIA [id number] [address] [place] [address] [place] Immature granulocytes (Bld) [#/Vol] 10*3/uL Normal <0.10 [facility] Comment on above: Order Comment: Speci men Type: BLOOD SPECIMEN Ordering Facility: [facility] Address: [address] [place] [address] Performed By: #### R UBIGG #### [facility] CLIA [id number] [address] [place] [address] [place] Immature granulocytes/100 WBC (Bld) 0.2 % Normal [facility] Comment on above: Order Comment: Speci men Type: BLOOD SPECIMEN Ordering Facility: [facility] Address: [address] [place] [address] Performed By: #### R UBIGG #### [facility] CLIA [id number] [address] [place] [address] [place] Lymphocytes (Bld) [#/Vol] 2.18 10*3/uL Normal 1.00-4.00 [facility] Comment on above: Order Comment: Speci men Type: BLOOD SPECIMEN Ordering Facility: [facility] Address: [address] [place] [address] Performed By: #### R UBIGG #### [facility] CLIA [id number] [address] [place] [address] [place] Lymphocytes/100 WBC (Bld) 21.1 % Normal [facility] Comment on above: Order Comment: Speci men Type: BLOOD SPECIMEN Ordering Facility: [facility] Address: [address] [place] [address] Performed By: #### R UBIGG #### [facility] CLIA [id number] [address] [place] [address] [place] MCH (RBC) [Entitic mass] 28.1 pg Normal 26.0-34.0 [facility] Comment on above: Order Comment: Speci men Type: BLOOD SPECIMEN Ordering Facility: [facility] Address: [address] [place] [address] Performed By: #### R UBIGG #### [facility] CLIA [id number] [address] [place] [address] [place] MCHC (RBC) [Mass/Vol] 33.9 g/dL Normal 30.5-36.0 [facility] Comment on above: Order Comment: Speci men Type: BLOOD SPECIMEN Ordering Facility: [facility] Address: [address] [place] [address] Performed By: #### R UBIGG #### [facility] CLIA [id number] [address] [place] [address] [place] MCV (RBC) [Entitic vol] 83.0 fL Normal 80.0-100.0 [facility] Comment on above: Order Comment: Speci men Type: BLOOD SPECIMEN Ordering Facility: [facility] Address: [address] [place] [address] Performed By: #### R UBIGG #### [facility] CLIA [id number] [address] [place] [address] [place] Monocytes (Bld) [#/Vol] 0.70 10*3/uL Normal <0.87 [facility] Comment on above: Order Comment: Speci men Type: BLOOD SPECIMEN Ordering Facility: [facility] Address: [address] [place] [address] Performed By: #### R UBIGG #### [facility] CLIA [id number] [address] [place] [address] [place] Monocytes/100 WBC (Bld) 6.8 % Normal [facility] Comment on above: Order Comment: Speci men Type: BLOOD SPECIMEN Ordering Facility: [facility] Address: [address] [place] [address] Performed By: #### R UBIGG #### [facility] CLIA [id number] [address] [place] [address] [place] Neutrophils (Bld) [#/Vol] 7.23 10*3/uL Normal 1.45-7.50 [facility] Comment on above: Order Comment: Speci men Type: BLOOD SPECIMEN Ordering Facility: [facility] Address: [address] [place] [address] Performed By: #### R UBIGG #### [facility] CLIA [id number] [address] [place] [address] [place] Neutrophils/100 WBC (Bld) 70.0 % Normal [facility] Comment on above: Order Comment: Speci men Type: BLOOD SPECIMEN Ordering Facility: [facility] Address: [address] [place] [address] Performed By: #### R UBIGG #### [facility] CLIA [id number] [address] [place] [address] [place] Nucleated RBC (Bld) [#/Vol] 10*3/uL Normal <0.01 [facility] Comment on above: Order Comment: Speci men Type: BLOOD SPECIMEN Ordering Facility: [facility] Address: [address] [place] [address] Performed By: #### R UBIGG #### [facility] CLIA [id number] [address] [place] [address] [place] Nucleated RBC/100 WBC (Bld) [Ratio] 0.0 /100 WBC Normal [facility] Comment on above: Order Comment: Speci men Type: BLOOD SPECIMEN Ordering Facility: [facility] Address: [address] [place] [address] Performed By: #### R UBIGG #### [facility] CLIA [id number] [address] [place] [address] [place] Platelet mean volume (Bld) [Entitic vol] 9.2 fL Normal 9.0-12.7 [facility] Comment on above: Order Comment: Speci men Type: BLOOD SPECIMEN Ordering Facility: [facility] Address: [address] [place] [address] Performed By: #### R UBIGG #### [facility] CLIA [id number] [address] [place] [address] [place] Platelets (Bld) [#/Vol] 258 10*3/uL Normal 150-400 [facility] Comment on above: Order Comment: Speci men Type: BLOOD SPECIMEN Ordering Facility: [facility] Address: [address] [place] [address] Performed By: #### R UBIGG #### [facility] CLIA [id number] [address] [place] [address] [place] RBC (Bld) [#/Vol] 4.48 10*6/uL Normal 3.90-5.20 [facility] Comment on above: Order Comment: Speci men Type: BLOOD SPECIMEN Ordering Facility: [facility] Address: [address] [place] [address] Performed By: #### R UBIGG #### [facility] CLIA [id number] [address] [place] [address] [place] WBC (Bld) [#/Vol] 10.33 10*3/uL Normal 3.70-11.00 [facility] Comment on above: Order Comment: Speci men Type: BLOOD SPECIMEN Ordering Facility: [facility] Address: [address] [place] [address] Performed By: #### R UBIGG #### [facility] CLIA [id number] [address] [place] [address] [place] HBV surface Ag Ser Qlon 05-28 HBV surface Ag Ql (S) Negative Normal Negative [facility] Comment on above: Order Comment: Speci men Type: BLOOD SPECIMEN Ordering Facility: [facility] Address: [address] [place] [address] Performed By: #### 7 3752-8, 55847-9, 5195-3 #### [facility] CLIA [id number] [address] [place] [address] [place] HCV Ab Ser Qlon 06-19-2024 HCV Ab Ql (S) Negative Normal Negative [facility] Comment on above: Order Comment: Speci men Type: BLOOD SPECIMEN Ordering Facility: [facility] Address: [address] [place] [address] Result Comment: The result suggests no evidence of active infection with Hepatitis C virus. Should recent infection be suspected, repeat testing may be considered 4-6 weeks after this draw. Performed By: #### R UBIGG #### [facility] CLIA [id number] [address] [place] [address] [place] HIV 1+2 Ab IA Qlon HIV 1 and 2 Ab IA.rapid Nom (S/P/Bld) Normal [facility] Comment on above: Order Comment: Speci men Type: BLOOD SPECIMEN Ordering Facility: [facility] Address: [address] [place] [address] Result Comment: Test not indicated. Performed By: #### 7 3752-8, 54090-1, 5195-3 #### [facility] CLIA [id number] [address] [place] [address] [place] HIV 1+2 Ab+HIV1 p24 Ag IA Ql Non-Reactive Normal Nonreactive [facility] Comment on above: Order Comment: Speci men Type: BLOOD SPECIMEN Ordering Facility: [facility] Address: [address] [place] [address] Performed By: #### 7 3752-8, 53503-9, 5195-3 #### [facility] CLIA [id number] [address] [place] [address] [place] HIV immunoassay testing algorithm interpretation (S/P/Bld) [Interp] Normal [facility] Comment on above: Order Comment: Speci men Type: BLOOD SPECIMEN Ordering Facility: [facility] Address: [address] [place] [address] Result Comment: No e vidence of HIV-1 or HIV-2 infection. Should recent infection be suspected, repeat testing may be considered 2-3 weeks after this draw. [place] Rev. Code 3701.243(E): This information has been disclosed to you from confidential records protected from disclosure by state law. ???You shall make no further disclosure of this information without the specific, written, and informed release of the individual to whom it pertains or as otherwise permitted by state law. A general authorization for the release of medical or other information is not sufficient for the purpose of the release of HIV test results or diagnoses. Performed By: #### 7 3752-8, 54527-3, 5195-3 #### [facility] CLIA [id number] [address] [place] [address] [place] HbA1c (Bld)on 06-19-2024 Average glucose Estimated from glycated hemoglobin (Bld) [Mass/Vol] 97 mg/dL Normal [facility] Comment on above: Order Comment: Speci men Type: BLOOD SPECIMEN Ordering Facility: [facility] Address: [address] [place] [address] Result Comment: eAG: (Estimated average glucose) is a calculated value from HgbA1c and is commercial pest control representative of the average blood glucose level in the last 2-3 month period. Performed By: #### 5 5454-3 #### [facility] CLIA [id number] [address] [place] [address] [place] HbA1c (Bld) [Mass fraction] 5.0 % Normal 4.3-5.6 [facility] Comment on above: Order Comment: Serafin rapp Type: BLOOD SPECIMEN Ordering Facility: [facility] Address: [address] [place] [address] Result Comment: [place] Diabetes Association guidelines indicate that patients with HgbA1c in the range 5.7-6.4% are at increased risk for development of diabetes, and intervention by lifestyle modification may be beneficial. HgbA1c greater or equal to 6.5% is considered diagnostic of diabetes. Performed By: #### 5 5454-3 #### [facility] CLIA [id number] [address] [place] [address] [place] RUBELLA IGG ANTIBODYon 06-19 RUBELLA IGG AB, QUAL Positive Normal Positive [facility] Comment on above: Order Comment: Serafin rapp Type: BLOOD SPECIMEN Ordering Facility: [facility] Address: [address] [place] [address] Result Comment: The result suggests recent or past exposure to Rubella virus or history of Rubella vaccination. Positive result may also be seen due to presence of passively-transferred antibodies. Please correlate with patient's history. Performed By: #### R UBIGG #### [facility] CLIA [id number] [address] [place] [address] [place] Reagin and Treponema pallidu m IgG and IgM [Interp]on 06-19-2024 T. pallidum IgG+IgM IA Ql (S) Non-Reactive Normal Nonreactive [facility] Comment on above: Order Comment: Serafin rapp Type: BLOOD SPECIMEN Ordering Facility: [facility] Address: [address] [place] [address] Performed By: #### 7 3752-8, 11709-2, 5195-3 #### [facility] CLIA [id number] [address] [place] [address] [place] Reagin+T pallidum IgG+IgM Se rPl-Impon 06-19-2024 Reagin and Treponema pallidum IgG and IgM [Interp] Cannot exclude recent Treponemal infection if specimen collected within 7-10 days after appearance of suspect lesions or 2-3 weeks after an exposure. Clinical correlation is required. Normal [facility] Comment on above: Order Comment: Speci men Type: BLOOD SPECIMEN Ordering Facility: [facility] Address: [address] [place] [address] Performed By: #### 7 3752-8, 39271-6, 5195-3 #### [facility] CLIA [id number] [address] [place] [address] [place] TYPE + SCREEN PRENATALon ABO O Normal [facility] Comment on above: Order Comment: Speci men Type: BLOOD SPECIMEN Ordering Facility: [facility] Address: [address] [place] [address] Performed By: #### T SPN #### [facility] CLIA [id number] [address] [place] [address] [place] Rh Nom (Bld) Positive Normal [facility] Comment on above: Order Comment: Speci men Type: BLOOD SPECIMEN Ordering Facility: [facility] Address: [address] [place] [address] Performed By: #### T SPN #### [facility] CLIA [id number] [address] [place] [address] [place] TYPE AND SCREEN EXPIRATION 06/22/2024 23:59 Normal [facility] Comment on above: Order Comment: Speci men Type: BLOOD SPECIMEN Ordering Facility: [facility] Address: [address] [place] [address] Performed By: #### T SPN #### [facility] CLIA [id number] [address] [place] [address] [place] Bacteria Ur Culton 4 Bacteria identified Cx Nom (U) ORGANISM ID: 1 10,000 -<50,000 CFU/ml Normal urogenital austin Normal [facility] Comment on above: Performed By: #### R UBIGG #### [facility] CLIA [id number] [address] [place] [address] [place] C. trachomatis+N. gonorrhoea e DNA KATHY+probe Ql (Unsp spec)on 05-18-2024 C. trachomatis rRNA KATHY+probe Ql (Unsp spec) Not detected Normal Not detected [facility] Comment on above: Order Comment: Speci men Type: BLOOD SPECIMEN Ordering Facility: [facility] Address: [address] [place] [address] Performed By: #### R UBIGG #### [facility] CLIA [id number] [address] [place] [address] [place] N. gonorrhoeae rRNA KATHY+probe Ql (Unsp spec) Not detected Normal Not detected [facility] Comment on above: Order Comment: Speci men Type: BLOOD SPECIMEN Ordering Facility: [facility] Address: [address] [place] [address] Performed By: #### R UBIGG #### [facility] CLIA [id number] [address] [place] [address] [place] PAP TESTon 05-18-2024 ADEQUACY Satisfactory for interpretation. Normal [facility] Comment on above: Order Comment: Speci men Type: FLUID SPECIMEN Ordering Facility: [facility] Address: [address] [place] [address] Performed By: #### Gavino [id number] #### [facility] CLIA [id number] [address] [place] [address] [place] [facility] CLIA [id number] [address] [place] [address] [place] CASE REPORT Normal [facility] Comment on above: Order Comment: Speci men Type: FLUID SPECIMEN Ordering Facility: [facility] Address: [address] [place] [address] Result Comment: Gyne cologic Cytology Report Case: [id number] Authorizing Provider: Orquidea Nielsen APRN.ACID PURIFIER Collected: 05/18/2024 09:10 AM Ordering Location: OB/Gynecology Received: 05/18/2024 11:50 AM First Screen: [place], Ligia, CT, ASCP Specimen: Pap Test, ThinPrep, Cervix Performed By: #### L [id number] #### [facility] CLIA [id number] [address] [place] [address] [place] [facility] CLIA [id number] [address] [place] [address] [place] CLINICAL HISTORY, CYTOLOGY, RETREAD OPERATOR Routine Exam Normal [facility] Comment on above: Order Comment: Speci men Type: FLUID SPECIMEN Ordering Facility: [facility] Address: [address] [place] [address] Performed By: #### L [id number] #### [facility] CLIA [id number] [address] [place] [address] [place] [facility] CLIA [id number] [address] [place] [address] [place] FINAL PERFORMING LAB Normal [facility] Comment on above: Order Comment: Speci men Type: FLUID SPECIMEN Ordering Facility: [facility] Address: [address] [place] [address] Result Comment: Tech nical component, advertising writer screening performed at [facility], [address] [place] [address] CLIA# [id number] Diagnostic interpretation performed at [facility], [address] [place] [id number] CLIA# [id number] Cafeteria Server: Soraida Delaney M.D. Performed By: #### L [id number] #### [facility] CLIA [id number] [address] [place] [address] [place] [facility] CLIA [id number] [address] [place] [address] [place] INTERPRETATION, CYTOLOGY, RETREAD OPERATOR Normal [facility] Comment on above: Order Comment: Speci men Type: FLUID SPECIMEN Ordering Facility: [facility] Address: [address] [place] [address] Result Comment: Nega tive for intraepithelial lesion or malignancy. Performed By: #### L [id number] #### [facility] CLIA [id number] [address] [place] [address] [place] [facility] CLIA [id number] [address] [place] [address] [facility] 03/28/2024 Normal [facility] Comment on above: Order Comment: Speci men Type: FLUID SPECIMEN Ordering Facility: [facility] Address: [address] [place] [address] Performed By: #### L [id number] #### [facility] CLIA [id number] [address] [place] [address] [place] [facility] CLIA [id number] [address] [place] [address] [place] PAP DISCLAIMER COMMENT The Pap Smear is a screening test for cervical cancer. False negative results occur with all screening tests, emphasizing the need for rescreening at recommended intervals, and clinical correlation. Normal [facility] Comment on above: Order Comment: Speci men Type: FLUID SPECIMEN Ordering Facility: [facility] Address: [address] [place] [address] Performed By: #### L [id number] #### [facility] CLIA [id number] [address] [place] [address] [place] [facility] CLIA [id number] [address] [place] [address] [place] PAP ELECTRONIC ASSEMBLER GROUP LEADER COMMENT This specimen has been analyzed by the ThinPrep Imaging System, an automated imaging and review system, which assists the laboratory in evaluating cells on ThinPrep Pap tests. Following automated imaging, selected urrutia from every slide are reviewed by a advertising writer. Normal [facility] Comment on above: Order Comment: Speci men Type: FLUID SPECIMEN Ordering Facility: [facility] Address: [address] [place] [address] Performed By: #### L [id number] #### [facility] CLIA [id number] [address] [place] [address] [place] [facility] CLIA [id number] [address] [place] [address] [place] POC CREW TRUCK DRIVER ULTRASOUNDon 05-18-20 Indication Confirmation of intrauterine . Confirmation of cardiac activity Impression cardiac activity is visualized, CRL is appropriate for clinical dates, corresponding to GARY 01/02/25 Recommendations Follow up for NT scan if desired Method Transvaginal ultrasound examination. View: Adequate visualization Salmeron . Number of embryos: 1 Dating LMP on: 03/28/2024 GA by LMP 7 w + 2 d GARY by LMP: 01/02/2025 Ultrasound examination on: 05/18/2024 GA by U/S based upon: CRL GA by U/S 7 w + 2 d GARY by U/S: 01/02/2025 Assigned: based on the LMP, selected on 05/18/2024 Assigned GA 7 w + 2 d Assigned GARY: 01/02/2025 Biometry Standard FHR 150 bpm CRL 11.2 mm 7w 2d 87% Hadlock Assessment Gestational sac: visualized Location: intrauterine Yolk sac: visualized Embryo: visualized CRL 11.2 mm 7w 2d 87% Hadlock Cardiac activity: present FHR 150 bpm General Evaluation Cardiac activity present. FHR 150 bpm Performed By: Orquidea Nielsen CNP Read By: Orquidea Nielsen CNP MATERNAL MEDICINE [facility] Radiology Study observation (narrative) [facility] Vital Signs Date Time Vital Sign Value Performing Clinician Jael saenz 12-25-2024 08:53-0400 Body weight 107.96 kg Josephine Felix MD Work Phone: [facility] 12-25-2024 08:53-0400 Diastolic blood pressure 78 mm[Hg] Josephine Felix MD Work Phone: [facility] 12-25-2024 08:53-0400 Systolic blood pressure 132 mm[Hg] Josephine Felix MD Work Phone: [facility] 12-18-2024 09:05-0400 Body weight 108.23 kg Monica France PRESSURE WELDER.CNM Work Phone: [facility] 12-18-2024 09:05-0400 Diastolic blood pressure 72 mm[Hg] Monica France PRESSURE WELDER.CNM Work Phone: [facility] 12-18-2024 09:05-0400 Systolic blood pressure 120 mm[Hg] Monica France PRESSURE WELDER.CNM Work Phone: [facility] 12-11-2024 09:17-0400 Body weight 107.5 kg Calli Guerrero MD Work Phone: [facility] 12-11-2024 09:17-0400 Diastolic blood pressure 70 mm[Hg] Calli Guerrero MD Work Phone: [facility] 12-11-2024 09:17-0400 Systolic blood pressure 120 mm[Hg] Calli Guerrero MD Work Phone: [facility] 12-04-2024 10:18-0400 Body weight 106.78 kg Carol Hudson MD Work Phone: [facility] 12-04-2024 10:18-0400 Diastolic blood pressure 70 mm[Hg] Carol Hudson MD Work Phone: [facility] 12-04-2024 10:18-0400 Systolic blood pressure 106 mm[Hg] Carol Hudson MD Work Phone: [facility] 11-26-2024 09:47-0400 Body weight 103.87 kg Calli Guerrero MD Work Phone: [facility] 11-26-2024 09:47-0400 Diastolic blood pressure 70 mm[Hg] Calli Guerrero MD Work Phone: [facility] 11-26-2024 09:47-0400 Systolic blood pressure 120 mm[Hg] Calli Guerrero MD Work Phone: [facility] 11-20-2024 09:41-0400 Body weight 104.96 kg Calli Guerrero MD Work Phone: [facility] 11-20-2024 09:41-0400 Diastolic blood pressure 76 mm[Hg] Calli Guerrero MD Work Phone: [facility] 11-20-2024 09:41-0400 Systolic blood pressure 120 mm[Hg] Calli Guerrero MD Work Phone: [facility] 11-05-2024 13:06-0400 Body weight 104.78 kg Rochelle Reis MD Work Phone: [facility] 11-05-2024 13:06-0400 Diastolic blood pressure 72 mm[Hg] Rochelle Reis MD Work Phone: [facility] 11-05-2024 13:06-0400 Systolic blood pressure 126 mm[Hg] Rochelle Reis MD Work Phone: [facility] 10-22-2024 08:28-0400 Body weight 104.06 kg Carol Hudson MD Work Phone: [facility] 10-22-2024 08:28-0400 Diastolic blood pressure 60 mm[Hg] Carol Hudson MD Work Phone: [facility] 10-22-2024 08:28-0400 Systolic blood pressure 100 mm[Hg] Carol Hudson MD Work Phone: [facility] 10-20-2024 16:15-0400 Diastolic blood pressure 70 mm[Hg] Fidelia Trammell MD Work Phone: [facility] 10-20-2024 16:15-0400 Heart rate 68 /min Fidelia Trammell MD Work Phone: [facility] 10-20-2024 16:15-0400 SaO2% (BldA) [Mass fraction] 100 % Fidelia Trammell MD Work Phone: [facility] 10-20-2024 16:15-0400 Systolic blood pressure 109 mm[Hg] Fidelia Trammell MD Work Phone: [facility] 10-20-2024 13:22-0400 Body weight 105.3 kg Fidelia Trammell MD Work Phone: [facility] 10-09-2024 08:28-0400 Body weight 103.6 kg Carol Hudson MD Work Phone: [facility] 10-09-2024 08:28-0400 Diastolic blood pressure 78 mm[Hg] Carol Hudson MD Work Phone: [facility] 10-09-2024 08:28-0400 Systolic blood pressure 124 mm[Hg] Carol Hudson MD Work Phone: [facility] 09-10-2024 09:57-0400 Body weight 100.34 kg Rochelle Reis MD Work Phone: [facility] 09-10-2024 09:57-0400 Diastolic blood pressure 72 mm[Hg] Rochelle Reis MD Work Phone: [facility] 09-10-2024 09:57-0400 Systolic blood pressure 120 mm[Hg] Rochelle Reis MD Work Phone: [facility] 08-14-2024 09:08-0400 Body weight 97.52 kg Calli Guerrero MD Work Phone: [facility] 08-14-2024 09:08-0400 Diastolic blood pressure 70 mm[Hg] Calli Guerrero MD Work Phone: [facility] 08-14-2024 09:08-0400 Systolic blood pressure 126 mm[Hg] Calli Guerrero MD Work Phone: [facility] 07-17-2024 08:27-0500 Body weight 94.35 kg Vinod Griffin APRN.ACID PURIFIER Work Phone: [facility] 07-17-2024 08:27-0500 Diastolic blood pressure 70 mm[Hg] Vinodsavana Griffin PRESSURE WELDER.ACID PURIFIER Work Phone: [facility] 07-17-2024 08:27-0500 Systolic blood pressure 122 mm[Hg] Vinod Haury PRESSURE WELDER.ACID PURIFIER Work Phone: [facility] 06-19-2024 12:41-0500 Body weight 93.62 kg Calli Guerrero MD Work Phone: [facility] 06-19-2024 12:41-0500 Diastolic blood pressure 80 mm[Hg] Calli Guerrero MD Work Phone: [facility] 06-19-2024 12:41-0500 Systolic blood pressure 122 mm[Hg] Calli Guerrero MD Work Phone: [facility] 05-18-2024 08:26-0500 Body weight 92.08 kg Orquidea Gianna PRESSURE WELDER.ACID PURIFIER Work Phone: [facility] 05-18-2024 08:26-0500 Diastolic blood pressure 64 mm[Hg] Orquidea Bennett PRESSURE WELDER.ACID PURIFIER Work Phone: [facility] 05-18-2024 08:26-0500 Systolic blood pressure 122 mm[Hg] Orquidea Gianna PRESSURE WELDER.ACID PURIFIER Work Phone: [facility] Encounters Encounter Date Encounter Type Care Provider Facility Start: 01-02-2025 ambulatory Carol Hudson Facility:[facility] Start: 12-31-2024 End: 12-31-2024 ambulatory CHRISTINE LEYVA Facility:[facility] Start: 12-25-2024 End: 12-25-2024 Patient encounter procedure Josephine Felix MD Work Phone: OB/Gynecology Comment on above: Obesity in (HCC) (Primary Dx); 38 weeks gestation of (HCC) Start: 12-25-2024 End: 12-25-2024 ambulatory JOSEPHINE FELIX Facility:[facility] Start: 12-18-2024 End: 12-18-2024 Patient encounter procedure Monica France PRESSURE WELDER.CNM Work Phone: OB/Gynecology Comment on above: 37 weeks gestation o f (HCC) (Primary Dx); Supervision of high risk in third trimester (HCC); Obesity in (HCC) Start: 12-18-2024 End: 12-18-2024 ambulatory MONICA FRANCE Facility:[facility] Start: 12-11-2024 End: 12-11-2024 Patient encounter procedure Calli Guerrero MD Work Phone: OB/Gynecology Comment on above: Supervision of high risk in third trimester (HCC) (Primary Dx); Obesity in (HCC); 36 weeks gestation of (HCC) Start: 12-11-2024 End: 12-11-2024 ambulatory CALLI GUERRERO Facility:[facility] Start: 12-04-2024 End: 12-04-2024 Patient encounter procedure Carol Hudson MD Work Phone: OB/Gynecology Comment on above: Supervision of high risk in third trimester (HCC) (Primary Dx); 35 weeks gestation of (HCC); Obesity in (HCC); Encounter for supervision of normal first in second trimester (HCC) Start: 12-04-2024 End: 12-04-2024 ambulatory CAROL HUDSON Facility:[facility] Start: 11-26-2024 End: 11-26-2024 Patient encounter procedure Calli Guerrero MD Work Phone: OB/Gynecology Comment on above: Supervision of high risk in third trimester (HCC) (Primary Dx); Obesity in (HCC); 34 weeks gestation of (HCC) Start: 11-26-2024 End: 11-26-2024 ambulatory CALLI GUERRERO Facility:[facility] Start: 11-20-2024 End: 11-20-2024 Patient encounter procedure Calli Guerrero MD Work Phone: OB/Gynecology Comment on above: 33 weeks gestation o f (HCC) (Primary Dx); Supervision of high risk in third trimester (HCC); Obesity in (HCC) Start: 11-20-2024 End: 11-20-2024 ambulatory CALLI GUERRERO Facility:[facility] Start: 11-05-2024 End: 11-05-2024 Patient encounter procedure Rochelle Reis MD Work Phone: OB/Gynecology Comment on above: Supervision of high risk in third trimester (HCC) (Primary Dx); 31 weeks gestation of (HCC); Obesity in (HCC) Start: 11-05-2024 End: 11-05-2024 ambulatory ROCHELLE REIS [facility] Start: 10-22-2024 End: 10-22-2024 Patient encounter procedure Carol Hudson MD Work Phone: OB/Gynecology Comment on above: Supervision of high risk in second trimester (HCC) (Primary Dx); 29 weeks gestation of (HCC); Obesity in (HCC); Need for vaccination Start: 10-22-2024 End: 10-22-2024 [facility] Start: 10-20-2024 End: 10-20-2024 Patient encounter procedure Fidelia Trammell MD Work Phone: Allergy Comment on above: Ifk-eqjo-bvtxkwz adv erse effect of medication, initial encounter (Primary Dx) Start: 10-20-2024 End: 10-20-2024 [facility] VINOD GRIFFIN [facility] Start: 10-12-2024 End: 12-12-2024 Follow-up encounter Chrisitne Leyva MD Work Phone: OB/Gynecology Start: 10-09-2024 End: 10-09-2024 Patient encounter procedure Carol Hudson MD Work Phone: OB/Gynecology Comment on above: Supervision of high risk in second trimester (HCC) (Primary Dx); 27 weeks gestation of (HCC); Obesity in (HCC) Start: 10-09-2024 End: 10-09-2024 ambulatory [facility] Start: 09-11-2024 End: 11-11-2024 Follow-up encounter Christine Leyva MD Work Phone: OB/Gynecology Start: 09-10-2024 End: 09-10-2024 Patient encounter procedure Rochelle Reis MD Work Phone: OB/Gynecology Comment on above: Screening for diabet es mellitus (Primary Dx); 23 weeks gestation of (HCC); Supervision of high risk in second trimester (HCC) Encounter for follow -up ultrasound of anatomy (HCC) (Primary Dx); 23 weeks gestation of (HCC) Start: 09-10-2024 End: 09-10-2024 ambulatory CALLI GUERRERO Facility:[facility] Start: 08-14-2024 End: 08-14-2024 ambulatory CALLI GUERRERO Facility:[facility] Start: 08-14-2024 End: 08-14-2024 Patient encounter procedure Calli Guerrero MD Work Phone: OB/Gynecology Comment on above: Supervision of high risk in second trimester (Primary Dx) Encounter for anatomic survey (Primary Dx); Screening, , for anatomic survey Start: 08-11-2024 End: 08-11-2024 ambulatory Fidelia Trammell MD Work Phone: Allergy Comment on above: PCN Test Start: 08-11-2024 End: 08-11-2024 E-mail encounter from caregiver Fidelia Trammell MD Work Phone: Allergy Start: 07-17-2024 End: 07-17-2024 Patient encounter procedure Vinod Griffin APRN.ACID PURIFIER Work Phone: OB/Gynecology Comment on above: Encounter for superv ision of normal first in second trimester (Primary Dx); 15 weeks gestation of ; Penicillin allergy; Supervision of high risk in second trimester; Type 1 diabetes mellitus affecting , antepartum; 12 weeks gestation of Start: 07-17-2024 End: 07-17-2024 ambulatory VINOD GRIFFIN Facility:[facility] Start: 06-19-2024 End: 06-19-2024 ambulatory ORQUIDEA VELPEN Facility:[facility] Start: 06-19-2024 End: 06-19-2024 Patient encounter procedure Calli Guerrero MD Work Phone: OB/Gynecology Comment on above: 11 weeks gestation o f (Primary Dx); Screening, , for anatomic survey; Encounter for supervision of normal first in first trimester Start: 05-18-2024 End: 05-18-2024 ambulatory ORQUIDEA ADAMSONF Facility:[facility] Start: 05-18-2024 End: 05-18-2024 Patient encounter procedure Orquidea Nielsen PRESSURE WELDER.ACID PURIFIER Work Phone: OB/Gynecology Comment on above: with uncer tain dates, antepartum (Primary Dx); Screening for cervical cancer; 7 weeks gestation of ; Encounter for supervision of normal first in first trimester Procedures Date Procedure Procedure Detail Performing Clinician Start: 12-25-2024 Urnls dip stick/tabl et rgnt non-auto w/o micrscp Josephine Felix MD Work Phone: Start: 12-18-2024 Urnls dip stick/tabl et rgnt non-auto w/o micrscp Monica France PRESSURE WELDER.CNM Work Phone: Start: 12-11-2024 Urnls dip stick/tabl et rgnt non-auto w/o micrscp Calli Guerrero MD Work Phone: Start: 12-04-2024 Urnls dip stick/tabl et rgnt non-auto w/o micrscp Carol Hudson MD Work Phone: Start: 10-20-2024 ALLERGEN SKIN TEST-PENICILLIN Fidelia Trammell MD Work Phone: Start: 10-20-2024 Ingestion challenge test initial 120 minutes Fidelia Trammell MD Work Phone: Start: 09-10-2024 Us preg uterus after 1st trimest 05/27 gestation Calli Guerrero MD Work Phone: Start: 08-14-2024 Urnls dip stick/tabl et rgnt non-auto w/o micrscp Calli Guerrero MD Work Phone: Start: 08-14-2024 Us preg uterus after 1st trimest 05/27 gestation Calli Guerrero MD Work Phone: Start: 06-19-2024 Antibody screen VIVIAN GUERRERO Comment on above: Order Comment: Speci men Type: BLOOD SPECIMEN Ordering Facility: [facility] Address: [address] [place] [address] Performed By: #### T SPN #### CC [facility] CLMD [id number] [address] [place] Start: 05-18-2024 Us uterus limited 1/> fetuses Orquidea Nielsen MARY JO Work Phone: Plan of Treatment Date Care Activity Detail Author Start: 10-22-2034 Urine microalbumin profile DTaP,Tdap,Td Vaccine (4 - Td or Tdap) [facility] Start: 10-31-2030 Urine microalbumin profile DTaP,Tdap,Td Vaccine (3 - Td or Tdap) [facility] Start: 05-18-2027 Screening for malign ant neoplasm of cervix Cervical Cancer Screening [facility] Start: 01-25-2025 Influenza vaccination [facility] Start: 01-08-2025 End: 01-08-2025 Patient encounter procedure 01/08/2025 9:10 AM EDT Routine Office Visit OB/Gynecology [address] [place] [address] Calli Guerrero MD [address] [place] [address] OB OB/Gynecology Comment on above: OB Start: 12-31-2024 End: 12-31-2024 Patient encounter procedure 12/31/2024 3:10 PM EDT Routine Office Visit OB/Gynecology [address] [place] [address] Christine Leyva MD [address] [place] [address] OB OB/Gynecology Comment on above: OB Start: 12-25-2024 End: 12-25-2024 Patient encounter procedure 12/25/2024 9:00 AM EDT Routine Office Visit OB/Gynecology [address] [place] [address] Josephine Bruce MD [address] [place] [address] OB OB/Gynecology Comment on above: OB Start: 12-18-2024 End: 12-18-2024 Patient encounter procedure 12/18/2024 9:15 AM EDT Routine Office Visit OB/Gynecology [address] [place] [address] Monica France APRN.[facility] [address] [place] [address] OB OB/Gynecology Comment on above: OB Start: 12-11-2024 End: 12-11-2024 Patient encounter procedure 12/11/2024 9:10 AM EDT Routine Office Visit OB/Gynecology [address] [place] [address] Calli Guerrero MD [address] [place] [address] OB OB/Gynecology Comment on above: OB Start: 12-04-2024 End: 12-04-2024 Patient encounter procedure 12/04/2024 10:10 AM EDT Routine Office Visit OB/Gynecology [address] [place] [address] Carol Hudson MD [address] [place] [address] Ob OB/Gynecology Comment on above: Ob Start: 11-26-2024 End: 11-26-2024 Patient encounter procedure 11/26/2024 9:40 AM EDT Routine Office Visit OB/Gynecology [address] [place] [address] Calli Guerrero MD [address] [place] [address] Ob OB/Gynecology Comment on above: Ob Start: 11-20-2024 End: 11-20-2024 Patient encounter procedure 11/20/2024 9:50 AM EDT Routine Office Visit OB/Gynecology [address] [place] [address] Calli Guerrero MD [address] [place] [address] OB OB/Gynecology Comment on above: OB Start: 11-05-2024 End: 11-05-2024 Patient encounter procedure 11/05/2024 1:10 PM EDT Routine Office Visit OB/Gynecology [address] [place] [address] Rochelle Reis MD [address] [place] [address] OB OB/Gynecology Comment on above: OB Start: 10-22-2024 End: 10-22-2024 Patient encounter procedure 10/22/2024 8:30 AM EDT Routine Office Visit OB/Gynecology [address] [place] [address] Carol Hudson MD [address] [place] [address] OB OB/Gynecology Comment on above: OB Start: 10-20-2024 End: 10-20-2024 Patient encounter procedure 10/20/2024 1:15 PM EDT Office Visit Allergy [address] [id number] Fidelia Trammell MD [address], [place] [id number] Test for Penicillin allergy Allergy Comment on above: Test for Penicillin allergy Start: 10-13-2024 End: 10-13-2024 ambulatory 10/13/2024 7:30 AM EDT Results Only [place] [facility] [address] [place] [address] [place] [facility] Start: 10-10-2024 End: 01-09-2025 ANEMIA REFLEX PANEL ANEMIA REFLEX PANEL Lab Routine 23 weeks gestation of ([facility]) Supervision of high risk in second trimester ([facility]) Expected: 10/10/2024 (Approximate), Expires: 01/09/2025 [facility] Comment on above: Expected: 10/10/2024 (Approximate), Expires: 01/09/2025 Start: 10-10-2024 End: 09-10-2025 GESTATIONAL GLUCOSE SCREEN, 1-HOUR, 50 GRAM, NON-FASTING GESTATIONAL GLUCOSE SCREEN, 1-HOUR, 50 GRAM, NON-FASTING Lab Routine Screening for diabetes mellitus Expected: 10/10/2024 (Approximate), Expires: 09/10/2025 [facility] Work Phone: Comment on above: Expected: 10/10/2024 (Approximate), Expires: 09/10/2025 Start: 10-10-2024 End: 09-10-2025 SYPHILIS TREPONEMAL W/REFLEX SYPHILIS TREPONEMAL W/REFLEX Lab Routine 23 weeks gestation of (HCC) Supervision of high risk in second trimester (HCC) Expected: 10/10/2024 (Approximate), Expires: 09/10/2025 [facility] Comment on above: Expected: 10/10/2024 (Approximate), Expires: 09/10/2025 Start: 10-09-2024 End: 10-09-2024 Patient encounter procedure 10/09/2024 8:30 AM EDT Routine Office Visit OB/Gynecology [address] [place] [address] Carol Hudson MD [address] [place] [address] OB Routine OB/Gynecology Comment on above: OB Routine Start: 10-09-2024 End: 10-09-2024 ambulatory 10/09/2024 8:15 AM EDT Results Only [place] [facility] [address] [place] [address] Glucose test and LABS [facility] Comment on above: Glucose test and LAB S Start: 09-11-2024 End: 09-11-2024 Patient encounter procedure 09/11/2024 10:30 AM EDT Routine Office Visit OB/Gynecology [address] [place] [address] Calli Guerrero MD [address] [place] [address] OB OB/Gynecology Comment on above: OB Start: 08-14-2024 End: 08-14-2024 Patient encounter procedure [facility] Comment on above: Anatomy Anatomy/OB Start: 07-17-2024 End: 07-17-2024 Patient encounter procedure 07/17/2024 8:45 AM EST Routine Office Visit OB/Gynecology [address] [place] [address] Vinod Griffin APRN.[employer] [address] [place] [address] OB OB/Gynecology Comment on above: OB Start: 06-19-2024 End: 06-19-2025 OBSTETRIC ULTRASOUND WHI OBSTETRIC ULTRASOUND WHI Anc Imaging Routine Screening, , for anatomic survey Expected: 06/19/2024, Expires: 06/19/2025 [facility] Work Phone: Comment on above: Expected: 06/19/2024 , Expires: 06/19/2025 Start: 06-19-2024 End: 06-19-2024 Patient encounter procedure 06/19/2024 12:50 PM EST Routine Office Visit OB/Gynecology [address] [place] [address] Calli Guerrero MD [address] [place] [address] OB/Gynecology Comment on above: Start: 05-18-2024 End: 08-17-2024 ANEMIA REFLEX PANEL ANEMIA REFLEX PANEL Lab Routine 7 weeks gestation of Expected: 05/18/2024, Expires: 08/17/2024 [facility] Work Phone: Comment on above: Expected: 05/18/2024 , Expires: 08/17/2024 Start: 05-18-2024 End: 08-17-2024 Hemoglobin A1c in Blood HEMOGLOBIN A1C Lab Routine 7 weeks gestation of Expected: 05/18/2024, Expires: 08/17/2024 [facility] Comment on above: Expected: 05/18/2024 , Expires: 08/17/2024 Start: 05-18-2024 End: 08-17-2024 Hepatitis B virus surface Ag [Presence] in Serum HEPATITIS B SURFACE ANTIGEN Lab Routine 7 weeks gestation of Expected: 05/18/2024, Expires: 08/17/2024 [facility] Comment on above: Expected: 05/18/2024 , Expires: 08/17/2024 Start: 05-18-2024 End: 08-17-2024 Hepatitis C virus Ab [Presence] in Serum HEPATITIS C ANTIBODY IA WITH CONFIRMATION Lab Routine 7 weeks gestation of Expected: 05/18/2024, Expires: 08/17/2024 [facility] Comment on above: Expected: 05/18/2024 , Expires: 08/17/2024 Start: 05-18-2024 End: 08-17-2024 HIV 1+2 Ab [Presence] in Serum or Plasma by Immunoassay HIV 1/2 COMBO WITH REFLEX TO DIFFERENTIATION Lab Routine 7 weeks gestation of Expected: 05/18/2024, Expires: 08/17/2024 [facility] Comment on above: Expected: 05/18/2024 , Expires: 08/17/2024 Start: 05-18-2024 End: 08-17-2024 RUBELLA IGG ANTIBODY RUBELLA IGG ANTIBODY Lab Routine 7 weeks gestation of Expected: 05/18/2024, Expires: 08/17/2024 [facility] Comment on above: Expected: 05/18/2024 , Expires: 08/17/2024 Start: 05-18-2024 End: 08-17-2024 SYPHILIS TREPONEMAL W/REFLEX SYPHILIS TREPONEMAL W/REFLEX Lab Routine 7 weeks gestation of Expected: 05/18/2024, Expires: 08/17/2024 [facility] Comment on above: Expected: 05/18/2024 , Expires: 08/17/2024 Start: 05-18-2024 End: 08-17-2024 TYPE + SCREEN TYPE + SCREEN Blood Bank Routine 7 weeks gestation of Expected: 05/18/2024, Expires: 08/17/2024 [facility] Comment on above: Expected: 05/18/2024 , Expires: 08/17/2024 Start: 01-26-2024 Covid-19 Vaccine ( season) Covid-19 Vaccine ( season) [facility] Start: 01-26-2024 Influenza vaccination Influenza Vacc ine (#1) [facility] Start: 2016 Screening for malign ant neoplasm of cervix Cervical Cancer Screening [facility] Start: 2014 Hepatitis B Vaccine (1 of 3 - 19+ 3-dose series) Hepatitis B Vaccine (1 of 3 - 19+ 3-dose series) [facility] Start: 2013 Anxiety Screening Anxiety Screening [facility] Start: 2013 Depression Screening Depression Scre ening [facility] Start: 2013 Hepatitis C screening Hepatitis C Sc reening [facility] Start: 2013 HIV screening HIV Screening [facility] Bacteria identified in Urine by Culture URINE CULTURE Microbiology Routine 7 weeks gestation of 05/18/2024 9:14 AM [facility] Chlamydia trachomatis+Neisseria gonorrhoeae DNA [Presence] in Unspecified specimen by KATHY with probe detection GONORRHEA/CHLAMYDIA NAAT Lab Routine 7 weeks gestation of 05/18/2024 9:10 AM [facility] PAP TEST PAP TEST Lab Rou madalyn Screening for cervical cancer 05/18/2024 9:10 AM [facility] ROUTINE, GR OUP B STREPTOCOCCUS BY PCR ROUTINE, GROUP B STREPTOCOCCUS BY PCR Microbiology Routine Supervision of high risk in third trimester (HCC) 36 weeks gestation of (HCC) 12/11/2024 9:38 AM EDT [facility] Work Phone: URINE OB DIP B/O URINE OB DIP B/ O Lab Routine Supervision of high risk in third trimester (HCC) Obesity in (HCC) 34 weeks gestation of (HCC) Ordered: 11/26/2024 [facility] Work Phone: Comment on above: Ordered: 11/26/2024 Immunizations Immunization Date Immunization Notes Care Provider Fa cility 10-22-2024 tetanus toxoid, redu ana diphtheria toxoid, and acellular pertussis vaccine, adsorbed Carol Hudson MD Work Phone: [facility] 10-31-2020 tetanus toxoid, redu ana diphtheria toxoid, and acellular pertussis vaccine, adsorbed Orquidea Nielsen PRESSURE WELDER.[facility] Work Phone: [facility] 12-09-2008 Meningococcal, MCV4, unspecified conjugate formulation(groups A, C, Y and W-135) Orquidea Gianna PRESSURE WELDER.[employer] Work Phone: [facility] Work Phone: 12-09-2008 tetanus toxoid, redu ana diphtheria toxoid, and acellular pertussis vaccine, adsorbed Orquidea Gianna PRESSURE WELDER.[employer] Work Phone: [facility] Payers Date Payer Category Payer Self-pay 2022 Private Health Insurance [id number] 2022 Private Health Insurance [id number] Unknown [id number] Social History Date Type Detail Facility [facility]: [facility]18-[facility] History of tobacco use Passive smoker [facility] Start: 05-18-2024 Tobacco use and exposure Smoke less tobacco non-user [facility] Start: 05-18-2024 End: 12-18-2024 Alcoholic beverage intake Current drinker of alcohol (finding) [facility] Start: 05-18-2024 End: 06-19-2024 History of Social function [facility] Start: 05-18-2024 End: 06-19-2024 Tobacco use panel [facility] National Score (1-10 0), lower number is lower risk 60 [facility] Start: 05-18-2024 Tobacco Comment mom smokes inside Cl [facility] Start: 02-15-2021 Alcohol Comment occ. [facility] Start: 04-11-2024 [facility] Start: 1995 [facility] at [facility] Goals Date Patient Goal Desired Activity /State Personal health goal Functional Status Date Assessment Result Facility 12-25-2014 Are you deaf, or do you have serious difficulty hearing No 12/25/2014 12:49 PM EDT Terese Mallory MA No [facility] 12-25-2014 Are you blind, or do you have serious difficulty seeing, even when wearing glasses No 12/25/2014 12:49 PM EDT Terese Mallory MA No [facility] 12-25-2014 Do you have serious difficulty walking or climbing stairs No 12/25/2014 12:49 PM EDT Terese Mallory MA No [facility] 12-25-2014 Do you have difficul ty dressing or bathing No 12/25/2014 12:49 PM EDT Terese Mallory MA No [facility] 12-25-2014 Because of a physica l, mental, or emotional condition, do you have difficulty doing errands alone such as visiting a physician's office or shopping No 12/25/2014 12:49 PM EDT Terese Mallory MA [facility] Mental Status Date Assessment Result Facility 12-25-2014 Because of a physica l, mental, or emotional condition, do you have serious difficulty concentrating, remembering, or making decisions No 12/25/2014 12:49 PM EDT Terese Mallory MA [facility] Clinical Notes 05-18-2024 to 12-25-2024 Quick Notes - Josephine Bruce MD - 12/25/2024 9:21 AM EDTPrenatal Quick Notes - Josephine Bruce MD - 12/25/2024 9:21 AM EDTPatient InstructionsPatient Instructions Note Date & Type Note Facility 12-25-2024 Progress note Formatting of t his note might be different from the original. DM-Pt doing well. Denies vaginal Bleeding, Leaking fluid, or regular Contractions. Pt reports good movement Physical Exam: Gen: female in no apparent distress Abd: soft, Gravid. Non tender to palpation. See flow sheet Participation of a fellow, resident, medical student, or advanced practice provider student in performing the sensitive examination was discussed with the patient or authorized commercial pest control representative. The patient or authorized commercial pest control representative has agreed to proceed with the sensitive examination. @38.6 weeks Assessment & Plan Obesity in (HCC) Continue ASA 38 weeks gestation of ([facility]) Routine care weekly Reviewed Elective IOL- declines now but will consider at next appointment Kick counts and labor reviewed Orders: URINE OB DIP B/O Josephine Kendall MD [facility] 12-25-2024 Miscellaneous Notes DM-Pt doing well. Denies vaginal Bleeding, Leaking fluid, or regular Contractions. Pt reports good movement Physical Exam: Gen: female in no apparent distress Abd: soft, Gravid. Non tender to palpation. See flow sheet Participation of a fellow, resident, medical student, or advanced practice provider student in performing the sensitive examination was discussed with the patient or authorized commercial pest control representative. The patient or authorized commercial pest control representative has agreed to proceed with the sensitive examination. @38.6 weeks Assessment & Plan Obesity in (HCC) Continue ASA 38 weeks gestation of ([facility]) Routine care weekly Reviewed Elective IOL- declines now but will consider at next appointment Kick counts and labor reviewed Orders: URINE OB DIP B/O Josephine Kendall MD documented in this encounter [facility] 12-25-2024 Zoe Wagoner LPN - 12/25/2024 8:49 AM EDT SEQUENTIAL SCREENINGS The [facility] offers sequential screenings for women who are interested in screenings for chromosomal abnormalities and certain defects during a . The sequential screen combines ultrasound and blood tests to determine the risk of chromosomal abnormalities, including Down's Syndrome (Trisomy 21) and Trisomy 18, as well as open neural tube defects including spina bifida. Ultrasound examination is performed between 11 weeks and 13 weeks gestational age. Blood tests are drawn after the ultrasound and again later in the between 15 and 21 weeks gestational age. Please let your physician know if you are interested in this testing. It will require an appointment with our alternative energy technician. This is not an ultrasound performed by a physician in our office during a routine visit. SIGNS AND SYMPTOMS OF LABOR 1. Contractions every 10 minutes or more often 2. Clear, pink, or brownish fluid (water) leaking from vagina 3. Feeling that baby is pushing down, pressure 4. Low, dull backache 5. Cramps that feel like a period 6. Cramps with or without diarrhea If you notice any of the above symptoms, contact our office at [phone] and ask to speak with a nurse. After hours, you can call doctors registry at [phone] OR call [facility] at [phone] and ask to have the doctor personal banking assistant paged. If you consider this an emergency, dial 6-3-7 or go to your nearest emergency department. NEED HELP? Are you dealing with a violent or abusive relationship? Are you a victim of rape or sexual assult? Call [facility] ([place]) 24 hour Crisis Hotline: 296.533.5631 or 858-923-2427. MANUAL Your Guide to a Healthy manual is now on-line. Visit [email or web address] to download your free copy documented in this encounter [facility] 12-18-2024 Progress note Formatting of t his note might be different from the original. S: Kaur Kign is a 29 year old female who presents at 37 weeks gestation for a routine visit. Positive movements. Occasional nora escalera contractions that resolve on own. Denies headache, visual changes, chest pain, shortness of breath, vaginal bleeding, leakage of fluid, or dysuria. Feeling well, no complaints. O: See flow sheet Gen: No apparent distress Abd: Gravid, nontender ASSESSMENT/PLAN: 1. 37 weeks gestation of ([facility]) - ICD9: V22.2, ICD10: Z3A.37 (primary diagnosis) 2. Supervision of high risk in third trimester ([facility]) - ICD9: V23.9, ICD10: O09.93 3. Obesity in ([facility]) - ICD9: 649.10, ICD10: O99.210 - Pregravid BMI 30- no testing - Patient questioning elective induction of labor- reviewed elective vs. Medically indicated induction And questions answered - Educated on CE and membrane sweep and timing of contractions - Would like to discuss elective induction of labor after 39 weeks with and will discuss decision next week with provider - Aware CE may be completed at next visit - GBS negative - Labor precautions reviewed - RTO 1 week Monica France APRN.CNM [facility] Work Phone: 12-18-2024 Miscellaneous Notes S: Kaur King is a 29 year old female who presents at 37 weeks gestation for a routine visit. Positive movements. Occasional nora escalera contractions that resolve on own. Denies headache, visual changes, chest pain, shortness of breath, vaginal bleeding, leakage of fluid, or dysuria. Feeling well, no complaints. O: See flow sheet Gen: No apparent distress Abd: Gravid, nontender ASSESSMENT/PLAN: 1. 37 weeks gestation of ([facility]) - ICD9: V22.2, ICD10: Z3A.37 (primary diagnosis) 2. Supervision of high risk in third trimester ([facility]) - ICD9: V23.9, ICD10: O09.93 3. Obesity in ([facility]) - ICD9: 649.10, ICD10: O99.210 - Pregravid BMI 30- no testing - Patient questioning elective induction of labor- reviewed elective vs. Medically indicated induction And questions answered - Educated on CE and membrane sweep and timing of contractions - Would like to discuss elective induction of labor after 39 weeks with and will discuss decision next week with provider - Aware CE may be completed at next visit - GBS negative - Labor precautions reviewed - RTO 1 week Monica France APRN.CNM documented in this encounter [facility] 12-18-2024 Instructions Tamar Harrington MA - 12/18/2024 9:03 AM EDT SEQUENTIAL SCREENINGS The [facility] offers sequential screenings for women who are interested in screenings for chromosomal abnormalities and certain defects during a . The sequential screen combines ultrasound and blood tests to determine the risk of chromosomal abnormalities, including Down's Syndrome (Trisomy 21) and Trisomy 18, as well as open neural tube defects including spina bifida. Ultrasound examination is performed between 11 weeks and 13 weeks gestational age. Blood tests are drawn after the ultrasound and again later in the between 15 and 21 weeks gestational age. Please let your physician know if you are interested in this testing. It will require an appointment with our alternative energy technician. This is not an ultrasound performed by a physician in our office during a routine visit. SIGNS AND SYMPTOMS OF LABOR 1. Contractions every 10 minutes or more often 2. Clear, pink, or brownish fluid (water) leaking from vagina 3. Feeling that baby is pushing down, pressure 4. Low, dull backache 5. Cramps that feel like a period 6. Cramps with or without diarrhea If you notice any of the above symptoms, contact our office at [phone] and ask to speak with a nurse. After hours, you can call doctors registry at [phone] OR call [facility] at [phone] and ask to have the doctor personal banking assistant paged. If you consider this an emergency, dial 9-1-7 or go to your nearest emergency department. NEED HELP? Are you dealing with a violent or abusive relationship? Are you a victim of rape or sexual assult? Call [facility] ([place]) 24 hour Crisis Hotline: 702.194.7219 or 180-801-3925. MANUAL Your Guide to a Healthy manual is now on-line. Visit [email or web address] to download your free copy documented in this encounter [facility] 12-11-2024 Progress note Formatting of t his note might be different from the original. S: Kaur King is a 29 year old female who presents at 01/02/2025, by Last Menstrual Period for a routine visit. Denies headache, visual changes, chest pain, shortness of breath, vaginal bleeding, leakage of fluid, or dysuria. Feeling well, no complaints. Good movement, No contractions O: See flow sheet Gen: No apparent distress Abd: Gravid, nontender GBS today VTX on US PCN allergy testing negative Could not reach cvx on exam ASSESSMENT/PLAN: 1. Supervision of high risk in third trimester ([facility]) - ICD9: V23.9, ICD10: O09.93 (primary diagnosis) - URINE OB DIP B/O - ROUTINE, GROUP B STREPTOCOCCUS BY PCR 2. Obesity in ([facility]) - ICD9: 649.10, ICD10: O99.210 Prepregnancy BMI 30 - URINE OB DIP B/O 3. 36 weeks gestation of ([facility]) - ICD9: V22.2, ICD10: Z3A.36 - URINE OB DIP B/O - ROUTINE, GROUP B STREPTOCOCCUS BY PCR Calli Guerrero MD [facility] 12-11-2024 Miscellaneous Notes S: Karu King is a 29 year old female who presents at 01/02/2025, by Last Menstrual Period for a routine visit. Denies headache, visual changes, chest pain, shortness of breath, vaginal bleeding, leakage of fluid, or dysuria. Feeling well, no complaints. Good movement, No contractions O: See flow sheet Gen: No apparent distress Abd: Gravid, nontender GBS today VTX on US PCN allergy testing negative Could not reach cvx on exam ASSESSMENT/PLAN: 1. Supervision of high risk in third trimester ([facility]) - ICD9: V23.9, ICD10: O09.93 (primary diagnosis) - URINE OB DIP B/O - ROUTINE, GROUP B STREPTOCOCCUS BY PCR 2. Obesity in ([facility]) - ICD9: 649.10, ICD10: O99.210 Prepregnancy BMI 30 - URINE OB DIP B/O 3. 36 weeks gestation of ([facility]) - ICD9: V22.2, ICD10: Z3A.36 - URINE OB DIP B/O - ROUTINE, GROUP B STREPTOCOCCUS BY PCR Calli Guerrero MD documented in this encounter [facility] [facility] 12-11-2024 Instructions Disha Martinez MA - 12/11/2024 9:08 AM EDT SEQUENTIAL SCREENINGS The [facility] offers sequential screenings for women who are interested in screenings for chromosomal abnormalities and certain defects during a . The sequential screen combines ultrasound and blood tests to determine the risk of chromosomal abnormalities, including Down's Syndrome (Trisomy 21) and Trisomy 18, as well as open neural tube defects including spina bifida. Ultrasound examination is performed between 11 weeks and 13 weeks gestational age. Blood tests are drawn after the ultrasound and again later in the between 15 and 21 weeks gestational age. Please let your physician know if you are interested in this testing. It will require an appointment with our alternative energy technician. This is not an ultrasound performed by a physician in our office during a routine visit. SIGNS AND SYMPTOMS OF LABOR 1. Contractions every 10 minutes or more often 2. Clear, pink, or brownish fluid (water) leaking from vagina 3. Feeling that baby is pushing down, pressure 4. Low, dull backache 5. Cramps that feel like a period 6. Cramps with or without diarrhea If you notice any of the above symptoms, contact our office at [phone] and ask to speak with a nurse. After hours, you can call doctors registry at [phone] OR call [facility] at [phone] and ask to have the doctor personal banking assistant paged. If you consider this an emergency, dial 9-1-3 or go to your nearest emergency department. NEED HELP? Are you dealing with a violent or abusive relationship? Are you a victim of rape or sexual assult? Call [facility] ([facility] 24 hour Crisis Hotline: 532.839.8817 or 691-051-0774. MANUAL Your Guide to a Healthy manual is now on-line. Visit [email or web address] to download your free copy documented in this encounter [facility] 12-04-2024 Progress note Formatting of t his note might be different from the original. SW- Pt doing well. No ctx, vb, lof. Good FM PE: Gen- NAD, well appearing Abd- Soft, gravid, NT See flowsheet A/p 35 wk gestation - Picked a gas prover - Completed birthing class - Will being plan sheet next visit - Plans on - Discussed eating dates 36 weeks - Interested in elective IOL - RTO 1 wk Carol Hudson DO [facility] 12-04-2024 Miscellaneous Notes SW- Pt doing well. No ctx, vb, lof. Good FM PE: Gen- NAD, well appearing Abd- Soft, gravid, NT See flowsheet A/p 35 wk gestation - Picked a gas prover - Completed birthing class - Will being plan sheet next visit - Plans on - Discussed eating dates 36 weeks - Interested in elective IOL - RTO 1 wk Carol Hudson DO documented in this encounter [facility] 12-04-2024 Instructions Tamar Harrington MA - 12/04/2024 10:16 AM EDT SEQUENTIAL SCREENINGS The [facility] offers sequential screenings for women who are interested in screenings for chromosomal abnormalities and certain defects during a . The sequential screen combines ultrasound and blood tests to determine the risk of chromosomal abnormalities, including Down's Syndrome (Trisomy 21) and Trisomy 18, as well as open neural tube defects including spina bifida. Ultrasound examination is performed between 11 weeks and 13 weeks gestational age. Blood tests are drawn after the ultrasound and again later in the between 15 and 21 weeks gestational age. Please let your physician know if you are interested in this testing. It will require an appointment with our alternative energy technician. This is not an ultrasound performed by a physician in our office during a routine visit. SIGNS AND SYMPTOMS OF LABOR 1. Contractions every 10 minutes or more often 2. Clear, pink, or brownish fluid (water) leaking from vagina 3. Feeling that baby is pushing down, pressure 4. Low, dull backache 5. Cramps that feel like a period 6. Cramps with or without diarrhea If you notice any of the above symptoms, contact our office at [phone] and ask to speak with a nurse. After hours, you can call doctors registry at [phone] OR call [facility] at [phone] and ask to have the doctor personal banking assistant paged. If you consider this an emergency, dial 9--4 or go to your nearest emergency department. NEED HELP? Are you dealing with a violent or abusive relationship? Are you a victim of rape or sexual assult? Call [facility] ([place]) 24 hour Crisis Hotline: 667.865.8695 or 061-041-7824. MANUAL Your Guide to a Healthy manual is now on-line. Visit [email or web address] to download your free copy documented in this encounter [facility] 11-26-2024 Progress note Formatting of t his note might be different from the original. S: Kaur King is a 29 year old female who presents at 01/02/2025, by Last Menstrual Period for a routine visit. Denies headache, visual changes, chest pain, shortness of breath, vaginal bleeding, leakage of fluid, or dysuria. Feeling well, no complaints. Good movement, No contractions O: See flow sheet Gen: No apparent distress Abd: Gravid, nontender Breast pump RX today ASSESSMENT/PLAN: 1. Supervision of high risk in third trimester ([facility]) - ICD9: V23.9, ICD10: O09.93 (primary diagnosis) - URINE OB DIP B/O 2. Obesity in ([facility]) - ICD9: 649.10, ICD10: O99.210 Prepregnancy BMI 30 - URINE OB DIP B/O 3. 34 weeks gestation of ([facility]) - ICD9: V22.2, ICD10: Z3A.34 - URINE OB DIP B/O Calli Guerrero MD [facility] 11-26-2024 Miscellaneous Notes S: Kaur King is a 29 year old female who presents at 01/02/2025, by Last Menstrual Period for a routine visit. Denies headache, visual changes, chest pain, shortness of breath, vaginal bleeding, leakage of fluid, or dysuria. Feeling well, no complaints. Good movement, No contractions O: See flow sheet Gen: No apparent distress Abd: Gravid, nontender Breast pump RX today ASSESSMENT/PLAN: 1. Supervision of high risk in third trimester ([facility]) - ICD9: V23.9, ICD10: O09.93 (primary diagnosis) - URINE OB DIP B/O 2. Obesity in ([facility]) - ICD9: 649.10, ICD10: O99.210 Prepregnancy BMI 30 - URINE OB DIP B/O 3. 34 weeks gestation of ([facility]) - ICD9: V22.2, ICD10: Z3A.34 - URINE OB DIP B/O Calli Guerrero MD documented in this encounter [facility] 11-26-2024 Instructions Fatou Chicas MA - 11/26/2024 9:43 AM EDT SEQUENTIAL SCREENINGS The [facility] offers sequential screenings for women who are interested in screenings for chromosomal abnormalities and certain defects during a . The sequential screen combines ultrasound and blood tests to determine the risk of chromosomal abnormalities, including Down's Syndrome (Trisomy 21) and Trisomy 18, as well as open neural tube defects including spina bifida. Ultrasound examination is performed between 11 weeks and 13 weeks gestational age. Blood tests are drawn after the ultrasound and again later in the between 15 and 21 weeks gestational age. Please let your physician know if you are interested in this testing. It will require an appointment with our alternative energy technician. This is not an ultrasound performed by a physician in our office during a routine visit. SIGNS AND SYMPTOMS OF LABOR 1. Contractions every 10 minutes or more often 2. Clear, pink, or brownish fluid (water) leaking from vagina 3. Feeling that baby is pushing down, pressure 4. Low, dull backache 5. Cramps that feel like a period 6. Cramps with or without diarrhea If you notice any of the above symptoms, contact our office at [phone] and ask to speak with a nurse. After hours, you can call doctors registry at [phone] OR call [facility] at [phone] and ask to have the doctor personal banking assistant paged. If you consider this an emergency, dial or go to your nearest emergency department. NEED HELP? Are you dealing with a violent or abusive relationship? Are you a victim of rape or sexual assult? Call [facility] ([place]) 24 hour Crisis Hotline: 895.299.3059 or 482-264-6988. MANUAL Your Guide to a Healthy manual is now on-line. Visit [email or web address] to download your free copy documented in this encounter [facility] 11-20-2024 Progress note Formatting of t his note might be different from the original. S: Kaur King is a 29 year old female who presents at 01/02/2025, by Last Menstrual Period for a routine visit. Denies headache, visual changes, chest pain, shortness of breath, vaginal bleeding, leakage of fluid, or dysuria. Feeling well, no complaints. Good movement, No contractions O: See flow sheet Gen: No apparent distress Abd: Gravid, nontender ASSESSMENT/PLAN: 1. 33 weeks gestation of ([facility]) - ICD9: V22.2, ICD10: Z3A.33 (primary diagnosis) 2. Supervision of high risk in third trimester ([facility]) - ICD9: V23.9, ICD10: O09.93 3. Obesity in ([facility]) - ICD9: 649.10, ICD10: O99.210 Prepregnancy BMI 30 Calli Guerrero MD [facility] 11-20-2024 Miscellaneous Notes S: Kaur King is a 29 year old female who presents at 01/02/2025, by Last Menstrual Period for a routine visit. Denies headache, visual changes, chest pain, shortness of breath, vaginal bleeding, leakage of fluid, or dysuria. Feeling well, no complaints. Good movement, No contractions O: See flow sheet Gen: No apparent distress Abd: Gravid, nontender ASSESSMENT/PLAN: 1. 33 weeks gestation of ([facility]) - ICD9: V22.2, ICD10: Z3A.33 (primary diagnosis) 2. Supervision of high risk in third trimester ([facility]) - ICD9: V23.9, ICD10: O09.93 3. Obesity in ([facility]) - ICD9: 649.10, ICD10: O99.210 Prepregnancy BMI 30 Calli Guerrero MD documented in this encounter [facility] 11-20-2024 Instructions Tamar Harrington MA - 11/20/2024 9:39 AM EDT SEQUENTIAL SCREENINGS The [facility] offers sequential screenings for women who are interested in screenings for chromosomal abnormalities and certain defects during a . The sequential screen combines ultrasound and blood tests to determine the risk of chromosomal abnormalities, including Down's Syndrome (Trisomy 21) and Trisomy 18, as well as open neural tube defects including spina bifida. Ultrasound examination is performed between 11 weeks and 13 weeks gestational age. Blood tests are drawn after the ultrasound and again later in the between 15 and 21 weeks gestational age. Please let your physician know if you are interested in this testing. It will require an appointment with our alternative energy technician. This is not an ultrasound performed by a physician in our office during a routine visit. SIGNS AND SYMPTOMS OF LABOR 1. Contractions every 10 minutes or more often 2. Clear, pink, or brownish fluid (water) leaking from vagina 3. Feeling that baby is pushing down, pressure 4. Low, dull backache 5. Cramps that feel like a period 6. Cramps with or without diarrhea If you notice any of the above symptoms, contact our office at [phone] and ask to speak with a nurse. After hours, you can call doctors registry at [phone] OR call [facility] at [phone] and ask to have the doctor personal banking assistant paged. If you consider this an emergency, dial or go to your nearest emergency department. NEED HELP? Are you dealing with a violent or abusive relationship? Are you a victim of rape or sexual assult? Call [facility] ([place]) 24 hour Crisis Hotline: 719.378.4452 or 981-429-0450. MANUAL Your Guide to a Healthy manual is now on-line. Visit [email or web address] to download your free copy documented in this encounter [facility] 11-05-2024 Progress note Formatting of t his note might be different from the original. KJ - S: Kaur denies LOF, contractions or vaginal bleeding. O: 31w5d, see flow sheet SENSITIVE EXAM: Sensitive exam not performed. A/P: Assessment & Plan Supervision of high risk in third trimester (HCC) 31 weeks gestation of (HCC) Obesity in ([facility]) Reviewed PTL & FM precautions Rochelle Reis MD [facility] 11-05-2024 Miscellaneous Notes KJ - S: Kaur denies LOF, contractions or vaginal bleeding. O: 31w5d, see flow sheet SENSITIVE EXAM: Sensitive exam not performed. A/P: Assessment & Plan Supervision of high risk in third trimester (HCC) 31 weeks gestation of (HCC) Obesity in (HCC) Reviewed PTL & FM precautions Rochelle Reis MD documented in this encounter [facility] 11-05-2024 Instructions Pat Arce MA - 11/05/2024 1:04 PM EDT SEQUENTIAL SCREENINGS The [facility] offers sequential screenings for women who are interested in screenings for chromosomal abnormalities and certain defects during a . The sequential screen combines ultrasound and blood tests to determine the risk of chromosomal abnormalities, including Down's Syndrome (Trisomy 21) and Trisomy 18, as well as open neural tube defects including spina bifida. Ultrasound examination is performed between 11 weeks and 13 weeks gestational age. Blood tests are drawn after the ultrasound and again later in the between 15 and 21 weeks gestational age. Please let your physician know if you are interested in this testing. It will require an appointment with our alternative energy technician. This is not an ultrasound performed by a physician in our office during a routine visit. SIGNS AND SYMPTOMS OF LABOR 1. Contractions every 10 minutes or more often 2. Clear, pink, or brownish fluid (water) leaking from vagina 3. Feeling that baby is pushing down, pressure 4. Low, dull backache 5. Cramps that feel like a period 6. Cramps with or without diarrhea If you notice any of the above symptoms, contact our office at [phone] and ask to speak with a nurse. After hours, you can call doctors registry at [phone] OR call [facility] at [phone] and ask to have the doctor personal banking assistant paged. If you consider this an emergency, dial 9-1-1 or go to your nearest emergency department. NEED HELP? Are you dealing with a violent or abusive relationship? Are you a victim of rape or sexual assult? Call [facility] ([place]) 24 hour Crisis Hotline: 960.476.8288 or 269-430-0832. MANUAL Your Guide to a Healthy manual is now on-line. Visit [email or web address] to download your free copy documented in this encounter [facility] 10-22-2024 Note HNO ID: [id number] Author: TAMAR HARRINGTON MA Service: ? Author Type: Electromedical Equipment Repairer Type: Progress Notes Filed: 10/22/2024 09:32 Note Text: Patient identified by name and date of . Kaur King presents today for a vaccination of Tdap. Patient denies an allergy to latex: yes Patient denies a severe (life-threatening) allergy to a previous dose of Tdap, DTP, DTaP, DT or Td vaccine. Yes Patient denies history of epilepsy or neurological problems: Yes Patient is afebrile and denies being moderately or severely ill: Yes Patient denies history of Guillain-[place] Syndrome (a severe paralytic illness): Yes Tdap Adacel injection was given without incident. See immunizations for details of immunizations administered today. VIS sheet provided: Yes Provider Carol Hudson DO was present in office at time of injection. Tamar Harrington MA [facility] 10-22-2024 History of Presen t illness Narrative Patient identified by name and date of . Kaur King presents today for a vaccination of Tdap. Patient denies an allergy to latex: yes Patient denies a severe (life-threatening) allergy to a previous dose of Tdap, DTP, DTaP, DT or Td vaccine. Yes Patient denies history of epilepsy or neurological problems: Yes Patient is afebrile and denies being moderately or severely ill: Yes Patient denies history of Guillain-[place] Syndrome (a severe paralytic illness): Yes Tdap Adacel injection was given without incident. See immunizations for details of immunizations administered today. VIS sheet provided: Yes Provider Carol Hudson DO was present in office at time of injection. Tamar Harrington MA documented in this encounter [facility] 10-22-2024 Progress note Formatting of t his note might be different from the original. SW- No ctx, vb, lof. Good FM PE: Gen- NAD, well appearing Abd- Soft, gravid, NT See flowsheet A/p 29 wk gestation - Tdap today - Discussed reasons to call and upcoming expectations - Reviewed classes and peds - RTO 2 wks Carol Hudson DO [facility] 10-22-2024 Miscellaneous Notes SW- No ctx, vb, lof. Good FM PE: Gen- NAD, well appearing Abd- Soft, gravid, NT See flowsheet A/p 29 wk gestation - Tdap today - Discussed reasons to call and upcoming expectations - Reviewed classes and peds - RTO 2 wks Carol Hudson DO documented in this encounter [facility] 10-22-2024 Instructions Tamar Harrington MA - 10/22/2024 8:27 AM EDT SEQUENTIAL SCREENINGS The [facility] offers sequential screenings for women who are interested in screenings for chromosomal abnormalities and certain defects during a . The sequential screen combines ultrasound and blood tests to determine the risk of chromosomal abnormalities, including Down's Syndrome (Trisomy 21) and Trisomy 18, as well as open neural tube defects including spina bifida. Ultrasound examination is performed between 11 weeks and 13 weeks gestational age. Blood tests are drawn after the ultrasound and again later in the between 15 and 21 weeks gestational age. Please let your physician know if you are interested in this testing. It will require an appointment with our alternative energy technician. This is not an ultrasound performed by a physician in our office during a routine visit. SIGNS AND SYMPTOMS OF LABOR 1. Contractions every 10 minutes or more often 2. Clear, pink, or brownish fluid (water) leaking from vagina 3. Feeling that baby is pushing down, pressure 4. Low, dull backache 5. Cramps that feel like a period 6. Cramps with or without diarrhea If you notice any of the above symptoms, contact our office at [phone] and ask to speak with a nurse. After hours, you can call doctors registry at [phone] OR call [facility] at [phone] and ask to have the doctor personal banking assistant paged. If you consider this an emergency, dial 9-1-1 or go to your nearest emergency department. NEED HELP? Are you dealing with a violent or abusive relationship? Are you a victim of rape or sexual assult? Call [facility] ([place]) 24 hour Crisis Hotline: 633.443.1894 or 685-658-5076. MANUAL Your Guide to a Healthy manual is now on-line. Visit [email or web address] to download your free copy documented in this encounter [facility] 10-20-2024 Note HNO ID: [id number] Author: MAG MCCLAIN LPN Service: ? Author Type: LICENSED NURSE Type: Progress Notes Filed: 10/21/2024 21:45 Note Text: Patient is here for Penicillin testing. She is unsure if she had when younger. Both mother and father have a Penicillin allergy. [facility] 10-20-2024 History of Presen t illness Narrative Patient is here for Penicillin testing. She is unsure if she had when younger. Both mother and father have a Penicillin allergy. ASSESSMENT/PLAN: -History of allergy to penicillin and/or penicillin-type antibiotic: Allergy skin tests to penicillin were negative. The patient took amoxicillin in a graded fashion and tolerated this without adverse reaction. The patient is at low risk for a severe, immediate, IgE-mediated reaction to penicillin, amoxicillin and other penicillin-type antibiotics. Skin tests and oral challenges are unreliable for predicting delayed reactions. - Discussed medication dosage, usage, side effects, and goals of treatment in detail. - Follow-up in PRN - patient will return sooner should new symptoms or problems arise. Fidelia Trammell MD Allergy & Immunology This is a consultation requested by Vinod Griffin APRN, CNP for an allergy and immunology evaluation. My final recommendations will be communicated back to the requesting healthcare provider(s) by way of shared medical record or via [place] mail. Kaur King is a 29 year old female who presents for further evaluation of possible penicillin allergy. Details of prior reaction unknown. She does not recall taking penicillin antibiotics. Denies recent use of antihistamines. 29 weeks . History of childhood eczema REVIEW OF SYSTEMS: All other review of systems negative except for those listed above. PAST MEDICAL HISTORY Diagnosis Date PMH - PAST MEDICAL HISTORY OF age 11-12 years menarche PMH - PAST MEDICAL HISTORY OF 12/27/09 normal color vision MEDICATIONS: aspirin, enteric coated (ECOTRIN LOW STRENGTH) 81 mg EC tablet Take 1 tablet by mouth once daily. vit no.124/iron/folic ( VITAMIN ORAL) Take by mouth once daily. ALLERGIES: Allergies As of Date: 10/20/2024 Allergen Noted Reaction PENICILLINS 03/31/2010 Other: See Comments Fully Assessed 10/09/2024 PAST SURGICAL HISTORY Procedure Laterality Date PAST SURGICAL HISTORY OF abscess on tonsils TONSILLECTOMY & ADENOIDECTOMY AGE 12/> 7/13/10 FAMILY HISTORY: Allergic rhinitis:no. Asthma: no. Eczema: no. Cystic fibrosis: no. Immunodeficiency: no. SOCIAL HISTORY: Employer And Job Title: None on file Years Of Education Completed: Not specified Marital Status: Social History Tobacco Use Smoking status: Never Passive exposure: Yes Smokeless tobacco: Never Tobacco comments: mom smokes inside ENVIRONMENTAL HISTORY: Lives in a house Age of home: 97 years Heating: electric Woodburning fireplace in the home: no Air conditioning: Central air Basement: Dry basement Miguelangel: Hardwood floor Dust mite controls: Dust mite controls are already in place, mattress only Pets in the home: 2 dogs Outdoor animals: There are no outdoor animals Tobacco smoke: No exposure in the home. Physical Exam: GENERAL APPEARANCE:Well appearing, alert, in no acute distress, well-hydrated, well nourished. HEENT: NCAT. EYES: conjunctiva and sclera normal. EARS: External ears normal. Canals clear. TM's normal. NOSE/SINUS: Nares normal. Septum midline. Mucosa normal. No drainage or sinus tenderness. THROAT: no erythema NECK:neck supple, no adenopathy HEART:RRR with normal S1 and S2 ,no murmurs, no gallops, no rubs LUNGS: clear to auscultation bilaterally, no wheezes, rales or rhonchi EXTREMITIES:Extremities normal, No deformities, No skin discoloration, and No edema SKIN: Skin color, texture, turgor normal. No rashes or lesions. ALLERGY SKIN TESTS: Completed on 10/20/2024 Negative to penicillin and Pre-Pen on both prick and intradermal tests. Graded in office challenge to amoxicillin: The risks, including risk of anaphylaxis, benefits, alternatives and personnel for a graded in-office challenge to amoxicillin were discussed. Written consent was obtained. Patient took amoxicillin 25 mg by mouth. About 23 minutes after taking the first dose, she complained of mild itching in the mouth and throat. Vital signs were stable. Physical exam remained normal. Patient drank some water and ate some will crackers. 40 minutes after taking the initial dose of amoxicillin the symptoms had resolved without treatment. Patient then took amoxicillin 100 mg by mouth and was monitored for 20 minutes. Finally, she took amoxicillin 125 mg and was monitored for 20 minutes afterwards. Tolerated the amoxicillin without adverse reaction. documented in this encounter [facility] 10-20-2024 Note HNO ID: [id number] Author: FIDELIA TRAMMELL MD Service: ? Author Type: Physician Type: Progress Notes Filed: 10/21/2024 21:45 Note Text: ASSESSMENT/PLAN: -History of allergy to penicillin and/or penicillin-type antibiotic: Allergy skin tests to penicillin were negative. The patient took amoxicillin in a graded fashion and tolerated this without adverse reaction. The patient is at low risk for a severe, immediate, IgE-mediated reaction to penicillin, amoxicillin and other penicillin-type antibiotics. Skin tests and oral challenges are unreliable for predicting delayed reactions. - Discussed medication dosage, usage, side effects, and goals of treatment in detail. - Follow-up in PRN - patient will return sooner should new symptoms or problems arise. Fidelia Trammell MD Allergy AND Immunology This is a consultation requested by Vinod Griffin APRN, CNP for an allergy and immunology evaluation. My final recommendations will be communicated back to the requesting healthcare provider(s) by way of shared medical record or via [place] mail. Kaur King is a 29 year old female who presents for further evaluation of possible penicillin allergy. Details of prior reaction unknown. She does not recall taking penicillin antibiotics. Denies recent use of antihistamines. 29 weeks . History of childhood eczema REVIEW OF SYSTEMS: All other review of systems negative except for those listed above. PAST MEDICAL HISTORY Diagnosis Date PMH - PAST MEDICAL HISTORY OF age 11-12 years menarche PMH - PAST MEDICAL HISTORY OF 12/27/09 normal color vision MEDICATIONS: aspirin, enteric coated (ECOTRIN LOW STRENGTH) 81 mg EC tablet Take 1 tablet by mouth once daily. vit no.124/iron/folic ( VITAMIN ORAL) Take by mouth once daily. ALLERGIES: Allergies As of Date: 10/20/2024 Allergen Noted Reaction PENICILLINS 03/31/2010 Other: See Comments Fully Assessed 10/09/2024 PAST SURGICAL HISTORY Procedure Laterality Date PAST SURGICAL HISTORY OF abscess on tonsils TONSILLECTOMY AND ADENOIDECTOMY AGE 12/> 7/13/10 FAMILY HISTORY: Allergic rhinitis:no. Asthma: no. Eczema: no. Cystic fibrosis: no. Immunodeficiency: no. SOCIAL HISTORY: Employer And Job Title: None on file Years Of Education Completed: Not specified Marital Status: Social History Tobacco Use Smoking status: Never Passive exposure: Yes Smokeless tobacco: Never Tobacco comments: mom smokes inside ENVIRONMENTAL HISTORY: Lives in a house Age of home: 97 years Heating: electric Woodburning fireplace in the home: no Air conditioning: Central air Basement: Dry basement Miguelangel: Hardwood floor Dust mite controls: Dust mite controls are already in place, mattress only Pets in the home: 2 dogs Outdoor animals: There are no outdoor animals Tobacco smoke: No exposure in the home. Physical Exam: GENERAL APPEARANCE:Well appearing, alert, in no acute distress, well-hydrated, well nourished. HEENT: NCAT. EYES: conjunctiva and sclera normal. EARS: External ears normal. Canals clear. TM's normal. NOSE/SINUS: Nares normal. Septum midline. Mucosa normal. No drainage or sinus tenderness. THROAT: no erythema NECK:neck supple, no adenopathy HEART:RRR with normal S1 and S2 ,no murmurs, no gallops, no rubs LUNGS: clear to auscultation bilaterally, no wheezes, rales or rhonchi EXTREMITIES:Extremities normal, No deformities, No skin discoloration, and No edema SKIN: Skin color, texture, turgor normal. No rashes or lesions. ALLERGY SKIN TESTS: Completed on 10/20/2024 Negative to penicillin and Pre-Pen on both prick and intradermal tests. Graded in office challenge to amoxicillin: The risks, including risk of anaphylaxis, benefits, alternatives and personnel for a graded in-office challenge to amoxicillin were discussed. Written consent was obtained. Patient took amoxicillin 25 mg by mouth. About 23 minutes after taking the first dose, she complained of mild itching in the mouth and throat. Vital signs were stable. Physical exam remained normal. Patient drank some water and ate some will crackers. 40 minutes after taking the initial dose of amoxicillin the symptoms had resolved without treatment. Patient then took amoxicillin 100 mg by mouth and was monitored for 20 minutes. Finally, she took amoxicillin 125 mg and was monitored for 20 minutes afterwards. Tolerated the amoxicillin without adverse reaction. [facility] 10-09-2024 Progress note Formatting of t his note might be different from the original. SW- Good FM. No pain, vb, lof. PE: Gen- NAD, well appearing Abd- Soft, gravid, NT See flowsheet A/p 27 wk gestation - Tdap discussed and considering - 28 wk labs today - plan sheet given - [facility] classes discussed - LARC declined - RTO 2 wk Carol Hudson DO [facility] 10-09-2024 Miscellaneous Notes SW- Good FM. No pain, vb, lof. PE: Gen- NAD, well appearing Abd- Soft, gravid, NT See flowsheet A/p 27 wk gestation - Tdap discussed and considering - 28 wk labs today - plan sheet given - [facility] classes discussed - LARC declined - RTO 2 wk Carol Hudson DO documented in this encounter [facility] 10-09-2024 Instructions Tamar Harrington MA - 10/09/2024 8:26 AM EDT SEQUENTIAL SCREENINGS The [facility] offers sequential screenings for women who are interested in screenings for chromosomal abnormalities and certain defects during a . The sequential screen combines ultrasound and blood tests to determine the risk of chromosomal abnormalities, including Down's Syndrome (Trisomy 21) and Trisomy 18, as well as open neural tube defects including spina bifida. Ultrasound examination is performed between 11 weeks and 13 weeks gestational age. Blood tests are drawn after the ultrasound and again later in the between 15 and 21 weeks gestational age. Please let your physician know if you are interested in this testing. It will require an appointment with our alternative energy technician. This is not an ultrasound performed by a physician in our office during a routine visit. SIGNS AND SYMPTOMS OF LABOR 1. Contractions every 10 minutes or more often 2. Clear, pink, or brownish fluid (water) leaking from vagina 3. Feeling that baby is pushing down, pressure 4. Low, dull backache 5. Cramps that feel like a period 6. Cramps with or without diarrhea If you notice any of the above symptoms, contact our office at [phone] and ask to speak with a nurse. After hours, you can call doctors registry at [phone] OR call [facility] at [phone] and ask to have the doctor personal banking assistant paged. If you consider this an emergency, dial 2 or go to your nearest emergency department. NEED HELP? Are you dealing with a violent or abusive relationship? Are you a victim of rape or sexual assult? Call [facility] ([place]) 24 hour Crisis Hotline: 658.436.9201 or 743-047-6767. MANUAL Your Guide to a Healthy manual is now on-line. Visit [email or web address] to download your free copy documented in this encounter [facility] 09-11-2024 Progress note Formatting of t his note might be different from the original. Anatomy ultrasound reviewed. No abnormalities identified. Follow up as clinically indicated. Please place copy in ob chart. Christine Leyva MD [facility] Work Phone: 09-11-2024 Miscellaneous Notes Anatomy ultrasound reviewed. No abnormalities identified. Follow up as clinically indicated. Please place copy in ob chart. Christine Leyva MD documented in this encounter [facility] 09-10-2024 Progress note Formatting of t his note might be different from the original. KJ - S: Kaur denies LOF, contractions or vaginal bleeding. O: 23w5d, see flow sheet SENSITIVE EXAM: Sensitive exam not performed. A/P: Assessment & Plan Screening for diabetes mellitus Orders: GESTATIONAL GLUCOSE SCREEN, 1-HOUR, 50 GRAM, NON-FASTING; Future 23 weeks gestation of (HCC) Orders: SYPHILIS TREPONEMAL W/REFLEX; Future ANEMIA REFLEX PANEL; Future Supervision of high risk in second trimester (HCC) Orders: SYPHILIS TREPONEMAL W/REFLEX; Future ANEMIA REFLEX PANEL; Future Follow up US today. Discussed healthy weight gain in . Rochelle Reis MD [facility] Work Phone: 09-10-2024 Miscellaneous Notes KJ - S: Kaur denies LOF, contractions or vaginal bleeding. O: 23w5d, see flow sheet SENSITIVE EXAM: Sensitive exam not performed. A/P: Assessment & Plan Screening for diabetes mellitus Orders: GESTATIONAL GLUCOSE SCREEN, 1-HOUR, 50 GRAM, NON-FASTING; Future 23 weeks gestation of (HCC) Orders: SYPHILIS TREPONEMAL W/REFLEX; Future ANEMIA REFLEX PANEL; Future Supervision of high risk in second trimester (HCC) Orders: SYPHILIS TREPONEMAL W/REFLEX; Future ANEMIA REFLEX PANEL; Future Follow up US today. Discussed healthy weight gain in . Rochelle Reis MD documented in this encounter [facility] 09-10-2024 Instructions Tamar Harrington MA - 09/10/2024 9:55 AM EDT SEQUENTIAL SCREENINGS The [facility] offers sequential screenings for women who are interested in screenings for chromosomal abnormalities and certain defects during a . The sequential screen combines ultrasound and blood tests to determine the risk of chromosomal abnormalities, including Down's Syndrome (Trisomy 21) and Trisomy 18, as well as open neural tube defects including spina bifida. Ultrasound examination is performed between 11 weeks and 13 weeks gestational age. Blood tests are drawn after the ultrasound and again later in the between 15 and 21 weeks gestational age. Please let your physician know if you are interested in this testing. It will require an appointment with our alternative energy technician. This is not an ultrasound performed by a physician in our office during a routine visit. SIGNS AND SYMPTOMS OF LABOR 1. Contractions every 10 minutes or more often 2. Clear, pink, or brownish fluid (water) leaking from vagina 3. Feeling that baby is pushing down, pressure 4. Low, dull backache 5. Cramps that feel like a period 6. Cramps with or without diarrhea If you notice any of the above symptoms, contact our office at [phone] and ask to speak with a nurse. After hours, you can call doctors registry at [phone] OR call [facility] at [phone] and ask to have the doctor personal banking assistant paged. If you consider this an emergency, dial 8-8-0 or go to your nearest emergency department. NEED HELP? Are you dealing with a violent or abusive relationship? Are you a victim of rape or sexual assult? Call [facility] ([place]) 24 hour Crisis Hotline: 444.330.5879 or 095-164-0489. MANUAL Your Guide to a Healthy manual is now on-line. Visit [email or web address] to download your free copy documented in this encounter [facility] 09-10-2024 Note Indication Evaluation of growth. Maternal obesity, BMI >30. Follow-up evaluation to complete anatomic survey Impression REMOTE READ The patient is referred for completion of the anatomic survey. - Single, live, intrauterine . - No malformations were visualized on a follow-up anatomic survey. - Anatomic survey was completed today. - The EFW is 657 g, at the 57%. AC is at the 60%. - The amniotic fluid volume is normal amount. - The placenta is anterior, fundal. - Not all structural malformations can be detected by ultrasound examination. Recommendations Additional follow-up as clinically indicated. Maternal Assessment Height 173 cm Height (ft) 5 ft Height (in) 8 in Physical Exam Initial weight (lb) 200 lb Initial BMI 30.41 kg/m Method Transabdominal ultrasound examination [place] . Number of fetuses: 1 Dating LMP on: 03/28/2024 GA by LMP 23 w + 5 d GARY by LMP: 01/02/2025 GA by prior assessment 23 w + 5 d GARY by prior assessment: 01/02/2025 Ultrasound examination on: 09/10/2024 GA by U/S based upon: AC, BPD, Femur, HC GA by U/S 24 w + 1 d GARY by U/S: 12/30/2024 Assigned: based on stated GARY, selected on 08/14/2024 Assigned GA 23 w + 5 d Assigned GARY: 01/02/2025 General Evaluation Cardiac activity present. FHR 136 bpm. movements: present. Presentation: cephalic Placenta: Placental site: anterior, fundal Umbilical cord: Cord vessels: 3 vessel cord. Insertion site: normal insertion Amniotic fluid: Amount of AF: normal amount. MVP 5.0 cm Growth Overview Exam date GA BPD (mm) HC (mm) AC (mm) FL (mm) HL (mm) EFW (g) 08/14/2024 19w 6d 46 52% 178.5 64% 156.3 75% 34.5 90% 30.9 69% 372 88% 09/10/2024 23w 5d 60.3 75% 219.7 55% 195.9 60% 42.3 67% 657 57% Biometry Standard BPD 60.3 mm 24w 4d 75% Hadlock OFD 76.8 mm 23w 3d 58% Nicolaides HC 219.7 mm 23w 6d 55% Sebastian AC 195.9 mm 24w 2d 60% Hadlock Femur 42.3 mm 24w 0d 67% Sebastian EFW 657 g 23w 6d 57% Hadlock EFW (lb) 1 lb EFW (oz) 7 oz EFW by: Hadlock (HC-AC-FL) Extended Senior Loan Officer 5.2 mm Extremities / Bony Struc FL / HC 0.19 Other Structures FHR 136 bpm Anatomy Lateral ventricles: normal Cavum septi pellucidi: normal Cerebellum: normal Cisterna magna: normal 4-chamber view: normal RVOT view: normal LVOT view: normal 3-vessel view: normal Heart / Thorax Situs: situs solitus (normal) Diaphragm: normal Stomach: normal Kidneys: normal Bladder: normal Gender: Unspecified Wants to know sex: no Performed By: Jacklyn Bonner RDMS Read By: Sandra Arcos M.D. [facility] 08-14-2024 Progress note Formatting of t his note might be different from the original. S: Kaur King is a 29 year old female who presents at 01/02/2025, by Last Menstrual Period for a routine visit. Denies headache, visual changes, chest pain, shortness of breath, vaginal bleeding, leakage of fluid, or dysuria. Feeling well, no complaints. O: See flow sheet Gen: No apparent distress Abd: Gravid, nontender Anatomy completed today Gender surprise Traveling to [place], reviewed precautions ASSESSMENT/PLAN: 1. Supervision of high risk in second trimester - ICD9: V23.9, ICD10: O09.92 (primary diagnosis) - URINE OB DIP B/O Calli Guerrero MD [facility] 08-14-2024 Miscellaneous Notes S: Kaur King is a 29 year old female who presents at 01/02/2025, by Last Menstrual Period for a routine visit. Denies headache, visual changes, chest pain, shortness of breath, vaginal bleeding, leakage of fluid, or dysuria. Feeling well, no complaints. O: See flow sheet Gen: No apparent distress Abd: Gravid, nontender Anatomy completed today Gender surprise Traveling to [place], reviewed precautions ASSESSMENT/PLAN: 1. Supervision of high risk in second trimester - ICD9: V23.9, ICD10: O09.92 (primary diagnosis) - URINE OB DIP B/O Calli Guerrero MD documented in this encounter [facility] 08-14-2024 Instructions Fatou Chicas MA - 08/14/2024 8:18 AM EDT SEQUENTIAL SCREENINGS The [facility] offers sequential screenings for women who are interested in screenings for chromosomal abnormalities and certain defects during a . The sequential screen combines ultrasound and blood tests to determine the risk of chromosomal abnormalities, including Down's Syndrome (Trisomy 21) and Trisomy 18, as well as open neural tube defects including spina bifida. Ultrasound examination is performed between 11 weeks and 13 weeks gestational age. Blood tests are drawn after the ultrasound and again later in the between 15 and 21 weeks gestational age. Please let your physician know if you are interested in this testing. It will require an appointment with our alternative energy technician. This is not an ultrasound performed by a physician in our office during a routine visit. SIGNS AND SYMPTOMS OF LABOR 1. Contractions every 10 minutes or more often 2. Clear, pink, or brownish fluid (water) leaking from vagina 3. Feeling that baby is pushing down, pressure 4. Low, dull backache 5. Cramps that feel like a period 6. Cramps with or without diarrhea If you notice any of the above symptoms, contact our office at [phone] and ask to speak with a nurse. After hours, you can call doctors registry at [phone] OR call [facility] at [phone] and ask to have the doctor personal banking assistant paged. If you consider this an emergency, dial 9-1-0 or go to your nearest emergency department. NEED HELP? Are you dealing with a violent or abusive relationship? Are you a victim of rape or sexual assult? Call [facility] ([place]) 24 hour Crisis Hotline: 862.762.9536 or 944-947-1423. MANUAL Your Guide to a Healthy manual is now on-line. Visit [email or web address] to download your free copy documented in this encounter [facility] 07-17-2024 Progress note Formatting of t his note might be different from the original. EH - S: Kaur is a 29 year old female who presents at 15w6d for a routine visit. Denies headache, visual changes, chest pain, shortness of breath, vaginal bleeding, leakage of fluid, or dysuria. Feeling well, no complaints. O: See flow sheet Gen: No apparent distress Abd: Gravid, nontender ASSESSMENT/PLAN: 1. Encounter for supervision of normal first in second trimester - ICD9: V22.0, ICD10: Z34.02 (primary diagnosis) - Declines NT - Continue PNV and LDA 2. 15 weeks gestation of - ICD9: V22.2, ICD10: Z3A.15 - Anatomy ultrasound next visit 3. Penicillin allergy - ICD9: V14.0, ICD10: Z88.0 - Allergy consult placed. PTL precautions reviewed. RTO in 4 weeks or sooner as needed. Vinod Griffin APRN.ACID PURIFIER [facility] 07-17-2024 Miscellaneous Notes EH - S: Kaur is a 29 year old female who presents at 15w6d for a routine visit. Denies headache, visual changes, chest pain, shortness of breath, vaginal bleeding, leakage of fluid, or dysuria. Feeling well, no complaints. O: See flow sheet Gen: No apparent distress Abd: Gravid, nontender ASSESSMENT/PLAN: 1. Encounter for supervision of normal first in second trimester - ICD9: V22.0, ICD10: Z34.02 (primary diagnosis) - Declines NT - Continue PNV and LDA 2. 15 weeks gestation of - ICD9: V22.2, ICD10: Z3A.15 - Anatomy ultrasound next visit 3. Penicillin allergy - ICD9: V14.0, ICD10: Z88.0 - Allergy consult placed. PTL precautions reviewed. RTO in 4 weeks or sooner as needed. Vinod Griffin APRN.ACID PURIFIER documented in this encounter [facility] 07-17-2024 Instructions Disha Martinez MA - 07/17/2024 8:24 AM EST SEQUENTIAL SCREENINGS The [facility] offers sequential screenings for women who are interested in screenings for chromosomal abnormalities and certain defects during a . The sequential screen combines ultrasound and blood tests to determine the risk of chromosomal abnormalities, including Down's Syndrome (Trisomy 21) and Trisomy 18, as well as open neural tube defects including spina bifida. Ultrasound examination is performed between 11 weeks and 13 weeks gestational age. Blood tests are drawn after the ultrasound and again later in the between 15 and 21 weeks gestational age. Please let your physician know if you are interested in this testing. It will require an appointment with our alternative energy technician. This is not an ultrasound performed by a physician in our office during a routine visit. SIGNS AND SYMPTOMS OF LABOR 1. Contractions every 10 minutes or more often 2. Clear, pink, or brownish fluid (water) leaking from vagina 3. Feeling that baby is pushing down, pressure 4. Low, dull backache 5. Cramps that feel like a period 6. Cramps with or without diarrhea If you notice any of the above symptoms, contact our office at [phone] and ask to speak with a nurse. After hours, you can call doctors registry at [phone] OR call [facility] at [phone] and ask to have the doctor personal banking assistant paged. If you consider this an emergency, dial 9-1-0 or go to your nearest emergency department. NEED HELP? Are you dealing with a violent or abusive relationship? Are you a victim of rape or sexual assult? Call [facility] ([place]) 24 hour Crisis Hotline: 782.951.2098 or 082-491-2268. MANUAL Your Guide to a Healthy manual is now on-line. Visit [email or web address] to download your free copy documented in this encounter [facility] 06-19-2024 Progress note Formatting of t his note might be different from the original. S: Kaur King is a 29 year old female who presents at 01/02/2025, by Last Menstrual Period for a routine visit. Denies headache, visual changes, chest pain, shortness of breath, vaginal bleeding, leakage of fluid, or dysuria. O: See flow sheet Gen: No apparent distress Declined genetic testing No NT Will get labbs today ASSESSMENT/PLAN: 1. 11 weeks gestation of - ICD9: V22.2, ICD10: Z3A.11 (primary diagnosis) 2. Screening, , for anatomic survey - ICD9: V28.81, ICD10: Z36.89 - OBSTETRIC ULTRASOUND WHI Calli Guerrero MD [facility] 06-19-2024 Miscellaneous Notes S: Kaur King is a 29 year old female who presents at 01/02/2025, by Last Menstrual Period for a routine visit. Denies headache, visual changes, chest pain, shortness of breath, vaginal bleeding, leakage of fluid, or dysuria. O: See flow sheet Gen: No apparent distress Declined genetic testing No NT Will get labbs today ASSESSMENT/PLAN: 1. 11 weeks gestation of - ICD9: V22.2, ICD10: Z3A.11 (primary diagnosis) 2. Screening, , for anatomic survey - ICD9: V28.81, ICD10: Z36.89 - OBSTETRIC ULTRASOUND ANABELI Calli Guerrero MD documented in this encounter [facility] 06-19-2024 Instructions Tamar Harrington MA - 06/19/2024 12:37 PM EST SEQUENTIAL SCREENINGS The [facility] offers sequential screenings for women who are interested in screenings for chromosomal abnormalities and certain defects during a . The sequential screen combines ultrasound and blood tests to determine the risk of chromosomal abnormalities, including Down's Syndrome (Trisomy 21) and Trisomy 18, as well as open neural tube defects including spina bifida. Ultrasound examination is performed between 11 weeks and 13 weeks gestational age. Blood tests are drawn after the ultrasound and again later in the between 15 and 21 weeks gestational age. Please let your physician know if you are interested in this testing. It will require an appointment with our alternative energy technician. This is not an ultrasound performed by a physician in our office during a routine visit. SIGNS AND SYMPTOMS OF LABOR 1. Contractions every 10 minutes or more often 2. Clear, pink, or brownish fluid (water) leaking from vagina 3. Feeling that baby is pushing down, pressure 4. Low, dull backache 5. Cramps that feel like a period 6. Cramps with or without diarrhea If you notice any of the above symptoms, contact our office at [phone] and ask to speak with a nurse. After hours, you can call doctors registry at [phone] OR call [facility] at [phone] and ask to have the doctor personal banking assistant paged. If you consider this an emergency, dial 8--0 or go to your nearest emergency department. NEED HELP? Are you dealing with a violent or abusive relationship? Are you a victim of rape or sexual assult? Call [facility] ([place]) 24 hour Crisis Hotline: 481.172.3234 or 979-968-9848. MANUAL Your Guide to a Healthy manual is now on-line. Visit [email or web address] to download your free copy documented in this encounter [facility] 05-18-2024 History of Presen t illness Narrative INITIAL OB ASSESSMENT HPI: Kaur is a 28 year old White here to establish Obstetrical Care. Patient's last menstrual period was 03/28/2024. from OB Dating Form. was planned Complaints: No OB History T0 L0 SAB0 IAB0 Ectopic0 Multiple0 Live Births0 Previous history: Prior : never History of 4th degree laceration: Perineal Laceration, 3rd or 4th degree Unanswered History of shoulder dystocia: Shoulder Dystocia Unanswered History of Hypertensive disorders including pre-eclampsia or gestational hypertension: Gestational Hypertension Unanswered Preeclampsia Unanswered History of gestational diabetes: Diabetes in Unanswered Patient's Risk Screening for delivery: Have you had a prior salmeorn between 20w and 36w6d? No How many pregnancies have you had before? 0 Did you have a previous baby with a GBS Infection? No Please select all that apply for any prior : N/A MEDICAL/PSYCHOSOCIAL HISTORY: Severe bleeding with delivery Unanswered Thyroid Disease Unanswered Gestational Hypertension Unanswered Preeclampsia Unanswered Diabetes in Unanswered No results found for: ABORHD BMI 31.32 kg/(m^2) Last Pap: History of abnormal pap: Abnormal Pap Unanswered Prior treatment for cervical dysplasia: none. Last HPV: History of STDs: N/A Partner History of STDs: none Did you have a partner with Herpes? No Tobacco use: No E-Cigarette/Vaping Use: No Caffeine use: Yes Drug use: No Alcohol use: No Multivitamin with Folic acid: Yes Would refuse blood transfusion if medically necessary: No Social Needs: How often does this describe you? I don't have enough money to pay my bills: Never Within the past 12 months, have you worried that your food would run out before you had money to buy more? Never In the past 12 months, has lack of reliable transportation kept you from going to medical appointments or work, or from getting things needed for daily living? Never In the past 12 months, have you had any concerns about having a place to live, or about the condition or quality of your housing? Never Would you like more information on any of the following (please check all that apply)? Not interested Social History: Do you have any history of depression, anxiety, PTSD, or other mood problems? No Do you have a history of abuse or trauma that may impact your experience? No Are you currently employed? Yes Depression/Anxiety Screening: denies symptoms of depression. OB Depression and Anxiety Screening- This Encounter (since 05/17/2024) Over the past 2 weeks have you felt down, depressed, or hopeless? Negative Over the past two weeks, have you felt little interest or pleasure in doing things? Negative Feeling nervous, anxious or on edge 0-Not at all Not being able to stop or control worrying 0-Not al all Anxiety Pre-Screening Total (If >/= 3 additional questions will be reviewed) 0 Genetic Screening: Partner present: Yes Patient verbalized knowledge of partner family health history: Yes Do you or your partner have any personal or family history of defects not previously discussed: No Do you have history of a complicated by anomaly, genetic condition, or demise: No OB Risk Screening: Completed, no positive findings documented. Marital Status: Partner: Name: Mick Age: 31 Occupation: [employer] Gender: Male PAST MEDICAL HISTORY Diagnosis Date PMH - PAST MEDICAL HISTORY OF age 11-12 years menarche PMH - PAST MEDICAL HISTORY OF 12/27/09 normal color vision PAST SURGICAL HISTORY Procedure Laterality Date PAST SURGICAL HISTORY OF abscess on tonsils TONSILLECTOMY & ADENOIDECTOMY AGE 12/> 12/06/09 Current Outpatient Medications Medication Sig Dispense Refill vit no.124/iron/folic ( VITAMIN ORAL) Take by mouth once daily. omeprazole (PRILOSEC) 40 mg capsule Take 40 mg by mouth once daily. ondansetron orally disintegrating (ZOFRAN ODT) 4 mg disintegrating tablet Take 4 mg by mouth every 6 hours as needed. No current facility-administered medications for this visit. Allergies As of Date: 05/18/2024 Allergen Noted Reaction PENICILLINS 03/31/2010 Other: See Comments Fully Assessed 05/18/2024 Does patient have penicillin allergy: Yes, plan for allergy testing. REVIEW OF SYSTEMS: GENERAL: Negative for: Fever or Chills HEENT: Negative for: Headache, Impaired Vision, Ringing in Ears, Nosebleeds NECK: Negative for: Swelling, Pain, Stiffness RESPIRATORY: Negative for: Cough, Shortness of breath, Wheezing GASTROINTESTINAL: Negative for: Heartburn, Constipation, Diarrhea, Blood in stool, Vomiting +nausea MUSCULOSKELETAL: Negative for: Muscle or joint pain, stiffness, Joint swelling NEUROLOGIC/PSYCHIATRIC: Negative for: Weakness, Paralysis, Numbness, Tingling, Tremor, Anxiety, Depression, Memory loss SKIN: Negative for: Rash, Itching GENITOURINARY: Negative for: vaginal itching, vaginal discharge, hematuria or dysuria SENSITIVE EXAM: The sensitive examination was discussed with the Patient or Patient's Authorized Property Management Assistant. As applicable, any other physician, advance practice provider, medical student, or other health professional student that will be observing or involved in the sensitive examination for educational or training purposes was discussed with the Patient or Authorized Property Management Assistant. The Patient or Authorized Property Management Assistant has agreed to proceed with the sensitive examination. (Sensitive examination includes inspection and/or palpation of the breasts, pelvis, prostate and anorectal regions). PHYSICAL EXAM: BP 122/64 Wt 203 lb (92.1kg) LMP 03/28/2024 GENERAL: pleasant in no apparent distress DERMATOLOGY: Normal, without lesions, non-icteric, and non-hirsute NECK: Supple, full range of motion, no adenopathy, and thyroid normal CHEST: Normal inspiratory effort BREAST: soft, non-tender, symmetric, no dominant mass, normal nipple-areolar complex, no lymphadenopathy, and no nipple discharge ABDOMEN: soft, non-tender, and no masses NEURO: alert and oriented x3,exam grossly non-focal PELVIS: External genitalia normal without lesions. Perineal body intact. No vaginal or cervical lesions. Cervix closed. No adnexal masses or tenderness. Clinical Pelvimetry: Pelvimetry clinically assessed as adequate Limited OB ultrasound exam: single intrauterine , positive cardiac activity, and POCUS performed. +cardiac activity, CRL consistent with LMP. Orquidea Nielsen APRN.CNP ASSESSMENT: 28 year old at 7w2d wks gestational age PLAN: 1) Patient oriented to practice. Patient given new OB orientation folder. Discussed nutrition, folic acid supplementation, dietary guidelines, exercise, smoking, alcohol, caffeine, and drug use. Discussed gestational weight gain guidelines. Discussed routine OB labs including STD/HIV. Discussed how to access Your guide to a health and the Performance Test Consultant. Reviewed midwifery and high school auto repair teacher services that are available. 2) Screening: Hemoglobin A1C: ordered Baby Aspirin: The patient has been counseled about the potential benefits of low dose aspirin in and our recommendation that this be offered to all patients, regardless of whether they meet the high risk criteria specified above. She Accepts Aneuploidy Screening: Discussed aneuploidy screening, nuchal translucency/first trimester early anatomy ultrasound and NIPT. The risks/benefits and limitations of NIPT/aneuploidy screening were reviewed including the potential for false negative and false positive results. The availability of genetic counseling was reviewed. Information on aneuploidy screening was provided. The patient is uncertain. She will call back if she wants to proceed with screening. Pt aware of timing. Myriad Carrier Screening: Discussed myriad carrier screening. We discussed the availability of professional-society guided carrier screening and reviewed the conditions screened and limitations of screening. The availability of genetic counseling was reviewed. Information on carrier screening was provided. The patient Declines 3) Patient offered option of Virtual Visits. Patient unsure. May consider in future. 4) Obesity (BMI >30), will order early glucose screen or Hemoglobin A1C. Follow up in 4 weeks or sooner prn. Orquidea Nielsen APRN.CHARLIE documented in this encounter [facility] 05-18-2024 Instructions Keira Bellamy LPN - 05/18/2024 8:03 AM EST Please select the following link to access the [facility] Your Guide to a Healthy . [email or web address] documented in this encounter [facility] 05-18-2024 Note HNO ID: [id number] Author: ORQUIDEA NIELSEN APRN.ACID PURIFIER Service: ? Author Type: Nurse Practitioner Type: Progress Notes Filed: 05/18/2024 09:08 Note Text: INITIAL OB ASSESSMENT HPI: Kaur is a 28 year old White here to establish Obstetrical Care. Patient's last menstrual period was 03/28/2024. from OB Dating Form. was planned Complaints: No OB History T0 L0 SAB0 IAB0 Ectopic0 Multiple0 Live Births0 Previous history: Prior : never History of 4th degree laceration: Perineal Laceration, 3rd or 4th degree Unanswered History of shoulder dystocia: Shoulder Dystocia Unanswered History of Hypertensive disorders including pre-eclampsia or gestational hypertension: Gestational Hypertension Unanswered Preeclampsia Unanswered History of gestational diabetes: Diabetes in Unanswered Patient's Risk Screening for delivery: Have you had a prior salmeron between 20w and 36w6d? No How many pregnancies have you had before? 0 Did you have a previous baby with a GBS Infection? No Please select all that apply for any prior : N/A MEDICAL/PSYCHOSOCIAL HISTORY: Severe bleeding with delivery Unanswered Thyroid Disease Unanswered Gestational Hypertension Unanswered Preeclampsia Unanswered Diabetes in Unanswered No results found for: ABORHD BMI 31.32 kg/(m2) Last Pap: History of abnormal pap: Abnormal Pap Unanswered Prior treatment for cervical dysplasia: none. Last HPV: History of STDs: N/A Partner History of STDs: none Did you have a partner with Herpes? No Tobacco use: No E-Cigarette/Vaping Use: No Caffeine use: Yes Drug use: No Alcohol use: No Multivitamin with Folic acid: Yes Would refuse blood transfusion if medically necessary: No Social Needs: How often does this describe you? I don't have enough money to pay my bills: Never Within the past 12 months, have you worried that your food would run out before you had money to buy more? Never In the past 12 months, has lack of reliable transportation kept you from going to medical appointments or work, or from getting things needed for daily living? Never In the past 12 months, have you had any concerns about having a place to live, or about the condition or quality of your housing? Never Would you like more information on any of the following (please check all that apply)? Not interested Social History: Do you have any history of depression, anxiety, PTSD, or other mood problems? No Do you have a history of abuse or trauma that may impact your experience? No Are you currently employed? Yes Depression/Anxiety Screening: denies symptoms of depression. OB Depression and Anxiety Screening- This Encounter (since 05/17/2024) Over the past 2 weeks have you felt down, depressed, or hopeless? Negative Over the past two weeks, have you felt little interest or pleasure in doing things?? Negative Feeling nervous, anxious or on edge 0-Not at all Not being able to stop or control worrying 0-Not al all Anxiety Pre-Screening Total (If >/= 3 additional questions will be reviewed) 0 Genetic Screening: Partner present: Yes Patient verbalized knowledge of partner family health history: Yes Do you or your partner have any personal or family history of defects not previously discussed: No Do you have history of a complicated by anomaly, genetic condition, or demise: No OB Risk Screening: Completed, no positive findings documented. Marital Status: Partner: Name: Mick Age: 31 Occupation: [employer] Gender: Male PAST MEDICAL HISTORY Diagnosis Date PMH - PAST MEDICAL HISTORY OF age 11-12 years menarche PMH - PAST MEDICAL HISTORY OF 12/27/09 normal color vision PAST SURGICAL HISTORY Procedure Laterality Date PAST SURGICAL HISTORY OF abscess on tonsils TONSILLECTOMY AND ADENOIDECTOMY AGE 12/> 12/06/09 Current Outpatient Medications Medication Sig Dispense Refill vit no.124/iron/folic ( VITAMIN ORAL) Take by mouth once daily. omeprazole (PRILOSEC) 40 mg capsule Take 40 mg by mouth once daily. ondansetron orally disintegrating (ZOFRAN ODT) 4 mg disintegrating tablet Take 4 mg by mouth every 6 hours as needed. No current facility-administered medications for this visit. Allergies As of Date: 05/18/2024 Allergen Noted Reaction PENICILLINS 03/31/2010 Other: See Comments Fully Assessed 05/18/2024 Does patient have penicillin allergy: Yes, plan for allergy testing. REVIEW OF SYSTEMS: GENERAL: Negative for: Fever or Chills HEENT: Negative for: Headache, Impaired Vision, Ringing in Ears, Nosebleeds NECK: Negative for: Swelling, Pain, Stiffness RESPIRATORY: Negative for: Cough, Shortness of breath, Wheezing GASTROINTESTINAL: Negative for: Heartburn, Constipation, Diarrhea, Blood in stool, (more content not included)... [facility] Evaluation note Diagnosis with uncertain dates, antepartum- Primary state, incidental Screening for cervical cancer Screening for malignant neoplasm of the cervix 7 weeks gestation of state, incidental Encounter for supervision of normal first in first trimester Supervision of normal first [facility] Diagnosis 11 weeks gestation of - Primary state, incidental Screening, , for anatomic survey Encounter for anatomic survey Encounter for supervision of normal first in first trimester Supervision of normal first [facility] Diagnosis Encounter for supervision of normal first in second trimester- Primary Supervision of normal first 15 weeks gestation of state, incidental Penicillin allergy Personal history of allergy to penicillin Supervision of high risk in second trimester Unspecified high-risk Type 1 diabetes mellitus affecting , antepartum 12 weeks gestation of state, incidental [facility] Diagnosis Supervision of high risk in second trimester- Primary Unspecified high-risk [facility] Diagnosis Encounter for anatomic survey- Primary Screening, , for anatomic survey Encounter for anatomic survey [facility] Diagnosis Screening for diabetes mellitus- Primary 23 weeks gestation of (HCC) state, incidental Supervision of high risk in second trimester (HCC) Unspecified high-risk [facility] Diagnosis Encounter for follow-up ultrasound of anatomy (HCC)- Primary 23 weeks gestation of (HCC) state, incidental [facility]* Diagnosis Supervision of high risk in second trimester (HCC)- Primary Unspecified high-risk 27 weeks gestation of (HCC) state, incidental Obesity in (HCC) Obesity complicating , childbirth, or the puerperium, unspecified as to episode of care or not applicable [facility] [id number] adverse effect of medication, initial encounter- Primary [facility]* Diagnosis Supervision of high risk in second trimester (HCC)- Primary Unspecified high-risk 29 weeks gestation of (HCC) state, incidental Obesity in (HCC) Obesity complicating , childbirth, or the puerperium, unspecified as to episode of care or not applicable Need for vaccination Need for prophylactic vaccination and inoculation against unspecified single disease [facility] Diagnosis Supervision of high risk in third trimester (HCC)- Primary Unspecified high-risk 31 weeks gestation of ([facility]) state, incidental Obesity in (HCC) Obesity complicating , childbirth, or the puerperium, unspecified as to episode of care or not applicable [facility]* Diagnosis 33 weeks gestation of (HCC)- Primary state, incidental Supervision of high risk in third trimester (HCC) Unspecified high-risk Obesity in (HCC) Obesity complicating , childbirth, or the puerperium, unspecified as to episode of care or not applicable [facility]* Diagnosis Supervision of high risk in third trimester (HCC)- Primary Unspecified high-risk Obesity in (HCC) Obesity complicating , childbirth, or the puerperium, unspecified as to episode of care or not applicable 34 weeks gestation of ([facility]) state, incidental [facility]* Diagnosis Supervision of high risk in third trimester (HCC)- Primary Unspecified high-risk 35 weeks gestation of (HCC) state, incidental Obesity in (HCC) Obesity complicating , childbirth, or the puerperium, unspecified as to episode of care or not applicable Encounter for supervision of normal first in second trimester (HCC) Supervision of normal first [facility]* Diagnosis Supervision of high risk in third trimester (HCC)- Primary Unspecified high-risk Obesity in (HCC) Obesity complicating , childbirth, or the puerperium, unspecified as to episode of care or not applicable 36 weeks gestation of ([facility]) state, incidental [facility] Diagnosis 37 weeks gestation of (HCC)- Primary state, incidental Supervision of high risk in third trimester (HCC) Unspecified high-risk Obesity in (HCC) Obesity complicating , childbirth, or the puerperium, unspecified as to episode of care or not applicable [facility] Diagnosis Obesity in (HCC)- Primary Obesity complicating , childbirth, or the puerperium, unspecified as to episode of care or not applicable 38 weeks gestation of (HCC) state, incidental [facility] Diagnostic Procedure Only (Routine) - New Request Specialty Diagnoses / Procedures Referred By Sanjay downing Referred To Contact [facility] Diagnoses Screening, , for anatomic survey Procedures OBSTETRIC ULTRASOUND WHI US PREG UTERUS AFTER 1ST TRIMEST GESTATION Calli Guerrero MD [address] [place] [address] [facility] [address] [place] [address] Referral ID Status Reason Start Date Expiration Date Visits Requested Visits Authorized [id number] New Request Auto-Generat ed Referral 06/19/2024 06/19/2025 1 1 [facility] Summary Purpose Family History No Family History Records FoundNo Family History Records Found Advance Directives No Advanced Directives Records FoundNo Advanced Directives Records Found Additional Source Comments Source Comments (unrecognize d section and content) In the event this informatio n is protected by the Federal Confidentiality of Alcohol and Drug Abuse Patient Records regulations: The Federal rules restrict any use of the information to criminally investigate or prosecute any alcohol or drug abuse patient.[facility] the event this information is protected by the Federal Confidentiality of Alcohol and Drug Abuse Patient Records regulations: The Federal rules restrict any use of the information to criminally investigate or prosecute any alcohol or drug abuse patient.[facility] the event this information is protected by the Federal Confidentiality of Alcohol and Drug Abuse Patient Records regulations: The Federal rules restrict any use of the information to criminally investigate or prosecute any alcohol or drug abuse patient.[facility] the event this information is protected by the Federal Confidentiality of Alcohol and Drug Abuse Patient Records regulations: The Federal rules restrict any use of the information to criminally investigate or prosecute any alcohol or drug abuse patient.[facility] the event this information is protected by the Federal Confidentiality of Alcohol and Drug Abuse Patient Records regulations: The Federal rules restrict any use of the information to criminally investigate or prosecute any alcohol or drug abuse patient.[facility] the event this information is protected by the Federal Confidentiality of Alcohol and Drug Abuse Patient Records regulations: The Federal rules restrict any use of the information to criminally investigate or prosecute any alcohol or drug abuse patient.[facility] the event this information is protected by the Federal Confidentiality of Alcohol and Drug Abuse Patient Records regulations: The Federal rules restrict any use of the information to criminally investigate or prosecute any alcohol or drug abuse patient.[facility] the event this information is protected by the Federal Confidentiality of Alcohol and Drug Abuse Patient Records regulations: The Federal rules restrict any use of the information to criminally investigate or prosecute any alcohol or drug abuse patient.[facility] the event this information is protected by the Federal Confidentiality of Alcohol and Drug Abuse Patient Records regulations: The Federal rules restrict any use of the information to criminally investigate or prosecute any alcohol or drug abuse patient.[facility] the event this information is protected by the Federal Confidentiality of Alcohol and Drug Abuse Patient Records regulations: The Federal rules restrict any use of the information to criminally investigate or prosecute any alcohol or drug abuse patient.[facility] the event this information is protected by the Federal Confidentiality of Alcohol and Drug Abuse Patient Records regulations: The Federal rules restrict any use of the information to criminally investigate or prosecute any alcohol or drug abuse patient.[facility] the event this information is protected by the Federal Confidentiality of Alcohol and Drug Abuse Patient Records regulations: The Federal rules restrict any use of the information to criminally investigate or prosecute any alcohol or drug abuse patient.[facility] the event this information is protected by the Federal Confidentiality of Alcohol and Drug Abuse Patient Records regulations: The Federal rules restrict any use of the information to criminally investigate or prosecute any alcohol or drug abuse patient.[facility] the event this information is protected by the Federal Confidentiality of Alcohol and Drug Abuse Patient Records regulations: The Federal rules restrict any use of the information to criminally investigate or prosecute any alcohol or drug abuse patient.[facility] the event this information is protected by the Federal Confidentiality of Alcohol and Drug Abuse Patient Records regulations: The Federal rules restrict any use of the information to criminally investigate or prosecute any alcohol or drug abuse patient.[facility] the event this information is protected by the Federal Confidentiality of Alcohol and Drug Abuse Patient Records regulations: The Federal rules restrict any use of the information to criminally investigate or prosecute any alcohol or drug abuse patient.[facility] the event this information is protected by the Federal Confidentiality of Alcohol and Drug Abuse Patient Records regulations: The Federal rules restrict any use of the information to criminally investigate or prosecute any alcohol or drug abuse patient.[facility] the event this information is protected by the Federal Confidentiality of Alcohol and Drug Abuse Patient Records regulations: The Federal rules restrict any use of the information to criminally investigate or prosecute any alcohol or drug abuse patient.[facility] the event this information is protected by the Federal Confidentiality of Alcohol and Drug Abuse Patient Records regulations: The Federal rules restrict any use of the information to criminally investigate or prosecute any alcohol or drug abuse patient.[facility] [facility] the event this information is protected by the Federal Confidentiality of Alcohol and Drug Abuse Patient Records regulations: The Federal rules restrict any use of the information to criminally investigate or prosecute any alcohol or drug abuse patient.[facility] Reason for Visit (unrecogniz ed section and content) Reason Comments New OB Reason Onset Date Comments Care 06/19/2024 Reason Onset Date Comments Care 07/17/2024 Reason Onset Date Comments Care 08/14/2024 Reason Comments US Specialty Diagnoses / Procedures Referred By Contac t Referred To Contact [facility] Diagnoses Screening, , for anatomic survey Procedures OBSTETRIC ULTRASOUND WHI US PREG UTERUS AFTER 1ST TRIMEST GESTATION Calli Guerrero MD [address] [place] [address] Phone: tel: fax: [address] [phone] Referral ID Status Reason Start Date Expiration Date V isits Requested Visits Authorized [id number] Closed Auto-Generate d Referral 06/19/2024 06/19/2025 1 1 Reason Onset Date Comments Care 09/10/2024 Specialty Diagnoses / Procedures Referred By Contac t Referred To Contact [facility] Diagnoses Encounter for follow-up ultrasound of anatomy (HCC) Procedures OBSTETRIC ULTRASOUND WHI US PREG UTERUS AFTER 1ST TRIMEST GESTATION Calli Guerrero MD [address] [place] [address] Phone: tel: fax: [facility] [address] [place] [id number] Referral ID Status Reason Start Date Expiration Date V isits Requested Visits Authorized [id number] Closed Auto-Generate d Referral 08/18/2024 08/18/2025 1 1 Reason Onset Date Comments Care 10/09/2024 Reason Comments New Patient Penicillin testing Reason Onset Date Comments Care 10/22/2024 Reason Onset Date Comments Care 11/05/2024 Reason Onset Date Comments Care 11/20/2024 Reason Onset Date Comments Care 11/26/2024 Reason Onset Date Comments Care 12/04/2024 Reason Onset Date Comments Care 12/11/2024 Reason Onset Date Comments Care 12/18/2024 Reason Onset Date Comments Care 12/25/2024 INFORMATION SOURCE (unrecogn ized section and content) DATE CREATED AUTHOR 10/28/2024 [facility] [place] DATE CREATED AUTHOR AUTHOR'S ORGANIZ ATION 01/03/2025 [facility] FOR RECORDS PERTAINING TO PATIENTS WHO ARE OR HAVE BEEN ENROLLED IN A CHEMICAL DEPENDENCY/SUBSTANCEABUSE PROGRAM, SOME INFORMATION MAY BE OMITTED. This clinical summary was aggregated from multiple sources. Caution should be exercised in using it in the provision of clinical care. This summary normalizes information from multiple sources, and as a consequence, information in this document may materially change the coding, format and clinical context of patient data. In addition, data may be omitted in some cases. CLINICAL DECISIONS SHOULD BE BASED ON THE PRIMARY CLINICAL RECORDS. [facility] provides no warranty or guarantee of the accuracy or completeness of information in this document.
[2025-01-03 19:17] VITALS: BMI 36.5
--- OUTSIDE RECORDS SUMMARY | 2025-01-03 19:26 | XMS RPT_ITS | CCD ---
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 Name Role Phone Unavailable Primary Care Provider [...] reactions to drug 0 Other: See Comments [facility] (3 sources) Penicillins Propensity to adverse reactions to drug 0 Other: See Comments [facility] (1 source) Penicillins Drug allergy (disorder) 1 [facility] Repository Medications Current Medications Medication Drug [...] 12-25-2024 Glucose Ql (U) Negative Neg mg/dL [facility] Interpretation and review of laboratory results Normal [facility] Protein.monoclonal (U) [Mass/Vol] Negative Neg mg/dL [facility] URINE OB DIP B/Oon 5 Glucose Ql (U) Negative Neg mg/dL [facility] Interpretation and review of laboratory results Normal [facility] Protein.monoclonal (U) [Mass/Vol] Negative Neg mg/dL [facility] ROUTINE, GROUP B ST REPTOCOCCUS BY PCRon 12-11-2024 ROUTINE, GROUP B STREPTOCOCCUS BY PCR Not detected Normal [facility] Comment on above: Performed By: #### R UBIGG #### [facility] CLIA [id number] [address] [place] [address] [place] [facility] URINE OB DIP B/Oon 5 Glucose Ql (U) Negative Neg mg/dL [facility] Interpretation and review of laboratory results Normal [facility] Protein.monoclonal (U) [Mass/Vol] Negative Neg mg/dL [facility] URINE OB DIP B/Oon 5 Glucose Ql (U) Negative Neg mg/dL [facility] Interpretation and review of laboratory results Normal [facility] Protein.monoclonal (U) [Mass/Vol] Negative Neg mg/dL [facility] ALLERGEN SKIN TEST-PENICILLI Non 10-20-2024 ANTIBIOTIC PERCUTANEOUS [...] = 7 mm F = 25 mm [facility] CNOVon 10-20-2024 CNOV Office Visit (ALLMED) KAUR KING ([id number]) 1995 F Date Time Provider Department 10/20/24 [...] Penicillin allergy. (more content not included)... Normal [facility] INGESTION CHALLENGE TESTon 0 10-20-2024 Graded Oral [...] 1617: Challenge ended. Patient left office asymptomatic. [facility] No Panel InformationOrdered By: Cristina Gibson on 10-20-2024 [facility] CBC W Auto Differential pane l (Bld)on 10-09-2024 Basophils (Bld) [#/Vol] 0.04 10*3/uL Normal <0.11 [facility] Comment on above: Order Comment: Speci men Type: BLOOD SPECIMEN Ordering Facility: [facility] Address: [address] [place] [address] Performed By: #### R UBIGG #### [facility] CLIA [id number] [address] [place] [address] [place] [address] [place] Basophils/100 WBC (Bld) 0.4 % Normal [facility] Comment on above: Order Comment: Speci men Type: BLOOD SPECIMEN Ordering Facility: [facility] Address: [address] [place] [address] Performed By: #### R UBIGG #### [facility] CLIA [id number] [address] [place] [address] [place] Differential cell count method Nom (Bld) Auto Normal [facility] Comment on above: Order Comment: Speci men Type: BLOOD SPECIMEN Ordering Facility: [facility] Address: [address] [place] [address] Performed By: #### R UBIGG #### [facility] CLIA [id number] [address] [place] [address] [place] Eosinophils (Bld) [#/Vol] 0.13 10*3/uL Normal <0.46 [facility] Comment on above: Order Comment: Speci men Type: BLOOD SPECIMEN Ordering Facility: [facility] Address: [address] [place] [address] Performed By: #### R UBIGG #### [facility] CLIA [id number] [address] [place] [address] [place] Eosinophils/100 WBC (Bld) 1.2 % Normal [facility] Comment on above: Order Comment: Speci men Type: BLOOD SPECIMEN Ordering Facility: [facility] Address: [address] [place] [address] Performed By: #### R UBIGG #### [facility] CLIA [id number] [address] [place] [address] [place] Erythrocyte distribution width (RBC) [Ratio] 13.2 % Normal 11.5-15.0 [facility] Comment on above: Order Comment: Speci men Type: BLOOD SPECIMEN Ordering Facility: [facility] Address: [address] [place] [address] Performed By: #### R UBIGG #### [facility] CLIA [id number] [address] [place] [address] [place] Hematocrit (Bld) [Volume fraction] 33.6 % Low 36.0-46.0 [facility] Comment on above: Order Comment: Speci men Type: BLOOD SPECIMEN Ordering Facility: [facility] Address: [address] [place] [address] Performed By: #### R UBIGG #### [facility] CLIA [id number] [address] [place] [address] [place] Hemoglobin (Bld) [Mass/Vol] 11.3 g/dL Low 11.5-15.5 [facility] Comment on above: Order Comment: Speci men Type: BLOOD SPECIMEN Ordering Facility: [facility] Address: [address] [place] [address] Performed By: #### R UBIGG #### [facility] CLIA [id number] [address] [place] [address] [place] Immature granulocytes (Bld) [#/Vol] 0.06 10*3/uL Normal <0.10 [facility] Comment on above: Order Comment: Speci men Type: BLOOD SPECIMEN Ordering Facility: [facility] Address: [address] [place] [address] Performed By: #### R UBIGG #### [facility] CLIA [id number] [address] [place] [address] [place] Immature granulocytes/100 WBC (Bld) 0.6 % Normal [facility] Comment on above: Order Comment: Speci men Type: BLOOD SPECIMEN Ordering Facility: [facility] Address: [address] [place] [address] Performed By: #### R UBIGG #### [facility] CLIA [id number] [address] [place] [address] [place] Lymphocytes (Bld) [#/Vol] 1.70 10*3/uL Normal 1.00-4.00 [facility] Comment on above: Order Comment: Speci men Type: BLOOD SPECIMEN Ordering Facility: [facility] Address: [address] [place] [address] Performed By: #### R UBIGG #### [facility] CLIA [id number] [address] [place] [address] [place] Lymphocytes/100 WBC (Bld) 15.7 % Normal [facility] Comment on above: Order Comment: Speci men Type: BLOOD SPECIMEN Ordering Facility: [facility] Address: [address] [place] [address] Performed By: #### R UBIGG #### [facility] CLIA [id number] [address] [place] [address] [place] MCH (RBC) [Entitic mass] 28.7 pg Normal 26.0-34.0 [facility] Comment on above: Order Comment: Speci men Type: BLOOD SPECIMEN Ordering Facility: [facility] Address: [address] [place] [address] Performed By: #### R UBIGG #### [facility] CLIA [id number] [address] [place] [address] [place] MCHC (RBC) [Mass/Vol] 33.6 g/dL Normal 30.5-36.0 [facility] Comment on above: Order Comment: Speci men Type: BLOOD SPECIMEN Ordering Facility: [facility] Address: [address] [place] [address] Performed By: #### R UBIGG #### [facility] CLIA [id number] [address] [place] [address] [place] MCV (RBC) [Entitic vol] 85.3 fL Normal 80.0-100.0 [facility] Comment on above: Order Comment: Speci men Type: BLOOD SPECIMEN Ordering Facility: [facility] Address: [address] [place] [address] Performed By: #### R UBIGG #### [facility] CLIA [id number] [address] [place] [address] [place] Monocytes (Bld) [#/Vol] 0.64 10*3/uL Normal <0.87 [facility] Comment on above: Order Comment: Speci men Type: BLOOD SPECIMEN Ordering Facility: [facility] Address: [address] [place] [address] Performed By: #### R UBIGG #### [facility] CLIA [id number] [address] [place] [address] [place] Monocytes/100 WBC (Bld) 5.9 % Normal [facility] Comment on above: Order Comment: Speci men Type: BLOOD SPECIMEN Ordering Facility: [facility] Address: [address] [place] [address] Performed By: #### R UBIGG #### [facility] CLIA [id number] [address] [place] [address] [place] Neutrophils (Bld) [#/Vol] 8.25 10*3/uL High 1.45-7.50 [facility] Comment on above: Order Comment: Speci men Type: BLOOD SPECIMEN Ordering Facility: [facility] Address: [address] [place] [address] Performed By: #### R UBIGG #### [facility] CLIA [id number] [address] [place] [address] [place] Neutrophils/100 WBC (Bld) 76.2 % Normal [facility] Comment on above: Order Comment: Speci men Type: BLOOD SPECIMEN Ordering Facility: [facility] Address: [address] [place] [address] Performed By: #### R UBIGG #### [facility] CLIA [id number] [address] [place] [address] [place] Nucleated RBC (Bld) [#/Vol] 10*3/uL Normal <0.01 [facility] Comment on above: Order Comment: Speci men Type: BLOOD SPECIMEN Ordering Facility: [facility] Address: [address] [place] [address] Performed By: #### R UBIGG #### [facility] CLIA [id number] [address] [place] [address] [place] Nucleated RBC/100 WBC (Bld) [Ratio] 0.0 /100 WBC Normal [facility] Comment on above: Order Comment: Speci men Type: BLOOD SPECIMEN Ordering Facility: [facility] Address: [address] [place] [address] Performed By: #### R UBIGG #### [facility] CLIA [id number] [address] [place] [address] [place] Platelet mean volume (Bld) [Entitic vol] 9.6 fL Normal 9.0-12.7 [facility] Comment on above: Order Comment: Speci men Type: BLOOD SPECIMEN Ordering Facility: [facility] Address: [address] [place] [address] Performed By: #### R UBIGG #### [facility] CLIA [id number] [address] [place] [address] [place] Platelets (Bld) [#/Vol] 235 10*3/uL Normal 150-400 [facility] Comment on above: Order Comment: Speci men Type: BLOOD SPECIMEN Ordering Facility: [facility] Address: [address] [place] [address] Performed By: #### R UBIGG #### [facility] CLIA [id number] [address] [place] [address] [place] RBC (Bld) [#/Vol] 3.94 10*6/uL Normal 3.90-5.20 [facility] Comment on above: Order Comment: Speci men Type: BLOOD SPECIMEN Ordering Facility: [facility] Address: [address] [place] [address] Performed By: #### R UBIGG #### [facility] CLIA [id number] [address] [place] [address] [place] WBC (Bld) [#/Vol] 10.82 10*3/uL Normal 3.70-11.00 [facility] Comment on above: Order Comment: Speci men Type: BLOOD SPECIMEN Ordering Facility: [facility] Address: [address] [place] [address] Performed By: #### R UBIGG #### [facility] CLIA [id number] [address] [place] [address] [place] GESTATIONAL GLUCOSE SCREEN, 1-HOUR, 50 GRAM, NON-FASTINGon 10-09-2024 Glucose [Mass/Vol] 109 mg/dL Normal 74-134 [facility] Comment on above: Order Comment: Speci men Type: BLOOD SPECIMEN Ordering Facility: [facility] Address: [address] [place] [address] Result Comment: [facility] Congress of Obstetricians and Gynecologists ([place]hoa) guidelines state a gestational diabetes mellitus positive screen is made, in women not previously diagnosed with overt diabetes, when the 1 hr plasma glucose level is equal to or above 140 mg/dL. The [facility] Project [employer] Worker and [facility] [place] recommends a 135 mg/dL cutoff. Performed By: #### G LTGST #### [id number] [address] [place] [address] [place] Reagin and Treponema pallidu m IgG and IgM [Interp]on 10-09-2024 T. pallidum IgG+IgM IA Ql (S) Non-Reactive Normal Nonreactive [facility] Comment on above: Order Comment: Speci men Type: BLOOD SPECIMEN Ordering Facility: [facility] Address: [address] [place] [address] Performed By: #### 7 3752-8 #### [facility] CLIA [id number] [address] [place] [address] [place] Reagin+T pallidum IgG+IgM Se rPl-Impon 10-09-2024 Reagin and Treponema pallidum IgG and IgM [Interp] Cannot exclude recent Treponemal infection if specimen collected within 7-10 days after appearance of suspect lesions or 2-3 weeks after an exposure. Clinical correlation is required. Normal [facility] Comment on above: Order Comment: Speci men Type: BLOOD SPECIMEN Ordering Facility: [facility] Address: [address] [place] [address] Performed By: #### 7 3752-8 #### [facility] CLIA [id number] [address] [place] [address] [facility] Examination level ultrasound on 09-10-2024 [facility] Radiology Study observation (narrative) [facility] Examination level ultrasound on 08-18-2024 Indication Detailed [...] 13 oz EFW by: Hadlock (HC-AC-FL) Extended Back Filler Operator 5.3 mm CM 3.5 mm 9% Nicolaides [...] LVOT view: suboptimally visualized 3-vessel view: normal 0-ywdlsg-lmwkozr view: normal Heart / Thorax Situs: situs [...] Visualized Lt ovary: Not visualized Performed By: Rhonda Longoria, AMOL, RVT Read By: Maria C Lombardi M.D. MATERNAL MEDICINE [facility] Examination level ultrasound on 08-14-2024 Radiology Study observation (narrative) [facility] URINE OB DIP B/Oon Glucose Ql (U) Negative Neg mg/dL [facility] Protein.monoclonal (U) [Mass/Vol] Negative Neg mg/dL [facility] CBC W Auto Differential pane l (Bld)on 06-19-2024 Basophils (Bld) [#/Vol] 0.03 10*3/uL Normal <0.11 [facility] Comment on above: Order Comment: Speci men Type: BLOOD SPECIMEN Ordering Facility: [facility] Address: [address] [place] [address] Performed By: #### R UBIGG #### [facility] CLIA [id number] [address] [place] [address] [place] Basophils/100 WBC (Bld) 0.3 % Normal [facility] Comment on above: Order Comment: Speci men Type: BLOOD SPECIMEN Ordering Facility: [facility] Address: [address] [place] [address] Performed By: #### R UBIGG #### [facility] CLIA [id number] [address] [place] [address] [place] Differential cell count method Nom (Bld) Auto Normal [facility] Comment on above: Order Comment: Speci men Type: BLOOD SPECIMEN Ordering Facility: [facility] Address: [address] [address] Performed By: #### R UBIGG #### [facility] CLIA [id number] [address] [place] [address] [place] Eosinophils (Bld) [#/Vol] 0.17 10*3/uL Normal <0.46 [facility] Comment on above: Order Comment: Speci men Type: BLOOD SPECIMEN Ordering Facility: [facility] Address: [address] [place] [address] Performed By: #### R UBIGG #### [facility] CLIA [id number] [address] [place] [address] [place] Eosinophils/100 WBC (Bld) 1.6 % Normal [facility] Comment on above: Order Comment: Speci men Type: BLOOD SPECIMEN Ordering Facility: [facility] Address: [address] [place] [address] Performed By: #### R UBIGG #### [facility] CLIA [id number] [address] [place] [address] [place] Erythrocyte distribution width (RBC) [Ratio] 12.9 % Normal 11.5-15.0 [facility] Comment on above: Order Comment: Speci men Type: BLOOD SPECIMEN Ordering Facility: [facility] Address: [address] [place] [address] Performed By: #### R UBIGG #### [facility] CLIA [id number] [address] [place] [address] [place] Hematocrit (Bld) [Volume fraction] 37.2 % Normal 36.0-46.0 [facility] Comment on above: Order Comment: Speci men Type: BLOOD SPECIMEN Ordering Facility: [facility] Address: [address] [place] [address] Performed By: #### R UBIGG #### [facility] CLIA [id number] [address] [place] [address] [place] Hemoglobin (Bld) [Mass/Vol] 12.6 g/dL Normal 11.5-15.5 [facility] Comment on above: Order Comment: Speci men Type: BLOOD SPECIMEN Ordering Facility: [facility] Address: [address] [place] [address] Performed By: #### R UBIGG #### [facility] CLIA [id number] [address] [place] [address] [place] Immature granulocytes (Bld) [#/Vol] 10*3/uL Normal <0.10 [facility] Comment on above: Order Comment: Speci men Type: BLOOD SPECIMEN Ordering Facility: [facility] Address: [address] [place] [address] Performed By: #### R UBIGG #### [facility] CLIA [id number] [address] [place] [address] [place] Immature granulocytes/100 WBC (Bld) 0.2 % Normal [facility] Comment on above: Order Comment: Speci men Type: BLOOD SPECIMEN Ordering Facility: [facility] Address: [address] [place] [address] Performed By: #### R UBIGG #### [facility] CLIA [id number] [address] [place] [address] [place] Lymphocytes (Bld) [#/Vol] 2.18 10*3/uL Normal 1.00-4.00 [facility] Comment on above: Order Comment: Speci men Type: BLOOD SPECIMEN Ordering Facility: [facility] Address: [address] [place] [address] Performed By: #### R UBIGG #### [facility] CLIA [id number] [address] [place] [address] [place] Lymphocytes/100 WBC (Bld) 21.1 % Normal [facility] Comment on above: Order Comment: Speci men Type: BLOOD SPECIMEN Ordering Facility: [facility] Address: [address] [place] [address] Performed By: #### R UBIGG #### [facility] CLIA [id number] [address] [place] [address] [place] MCH (RBC) [Entitic mass] 28.1 pg Normal 26.0-34.0 [facility] Comment on above: Order Comment: Speci men Type: BLOOD SPECIMEN Ordering Facility: [facility] Address: [address] [place] [address] Performed By: #### R UBIGG #### [facility] CLIA [id number] [address] [place] [address] [place] MCHC (RBC) [Mass/Vol] 33.9 g/dL Normal 30.5-36.0 [facility] Comment on above: Order Comment: Speci men Type: BLOOD SPECIMEN Ordering Facility: [facility] Address: [address] [place] [address] Performed By: #### R UBIGG #### [facility] CLIA [id number] [address] [place] [address] [place] MCV (RBC) [Entitic vol] 83.0 fL Normal 80.0-100.0 [facility] Comment on above: Order Comment: Speci men Type: BLOOD SPECIMEN Ordering Facility: [facility] Address: [address] [place] [address] Performed By: #### R UBIGG #### [facility] CLIA [id number] [address] [place] [address] [place] Monocytes (Bld) [#/Vol] 0.70 10*3/uL Normal <0.87 [facility] Comment on above: Order Comment: Speci men Type: BLOOD SPECIMEN Ordering Facility: [facility] Address: [address] [place] [address] Performed By: #### R UBIGG #### [facility] CLIA [id number] [address] [place] [address] [place] Monocytes/100 WBC (Bld) 6.8 % Normal [facility] Comment on above: Order Comment: Speci men Type: BLOOD SPECIMEN Ordering Facility: [facility] Address: [address] [place] [address] Performed By: #### R UBIGG #### [facility] CLIA [id number] [address] [place] [address] [place] Neutrophils (Bld) [#/Vol] 7.23 10*3/uL Normal 1.45-7.50 [facility] Comment on above: Order Comment: Speci men Type: BLOOD SPECIMEN Ordering Facility: [facility] Address: [address] [place] [address] Performed By: #### R UBIGG #### [facility] CLIA [id number] [address] [place] [address] [place] Neutrophils/100 WBC (Bld) 70.0 % Normal [facility] Comment on above: Order Comment: Speci men Type: BLOOD SPECIMEN Ordering Facility: [facility] Address: [address] [place] [address] Performed By: #### R UBIGG #### [facility] CLIA [id number] [address] [place] [address] [place] Nucleated RBC (Bld) [#/Vol] 10*3/uL Normal <0.01 [facility] Comment on above: Order Comment: Speci men Type: BLOOD SPECIMEN Ordering Facility: [facility] Address: [address] [place] [address] Performed By: #### R UBIGG #### [facility] CLIA [id number] [address] [place] [address] [place] Nucleated RBC/100 WBC (Bld) [Ratio] 0.0 /100 WBC Normal [facility] Comment on above: Order Comment: Speci men Type: BLOOD SPECIMEN Ordering Facility: [facility] Address: [address] [place] [address] Performed By: #### R UBIGG #### [facility] CLIA [id number] [address] [place] [address] [place] Platelet mean volume (Bld) [Entitic vol] 9.2 fL Normal 9.0-12.7 [facility] Comment on above: Order Comment: Speci men Type: BLOOD SPECIMEN Ordering Facility: [facility] Address: [address] [place] [address] Performed By: #### R UBIGG #### [facility] CLIA [id number] [address] [place] [address] [place] Platelets (Bld) [#/Vol] 258 10*3/uL Normal 150-400 [facility] Comment on above: Order Comment: Speci men Type: BLOOD SPECIMEN Ordering Facility: [facility] Address: [address] [place] [address] Performed By: #### R UBIGG #### [facility] CLIA [id number] [address] [place] [address] [place] RBC (Bld) [#/Vol] 4.48 10*6/uL Normal 3.90-5.20 [facility] Comment on above: Order Comment: Speci men Type: BLOOD SPECIMEN Ordering Facility: [facility] Address: [address] [place] [address] Performed By: #### R UBIGG #### [facility] CLIA [id number] [address] [place] [address] [place] WBC (Bld) [#/Vol] 10.33 10*3/uL Normal 3.70-11.00 [facility] Comment on above: Order Comment: Speci men Type: BLOOD SPECIMEN Ordering Facility: [facility] Address: [address] [place] [address] Performed By: #### R UBIGG #### [facility] CLIA [id number] [address] [place] [address] [place] HBV surface Ag Ser Qlon 05-28 HBV surface Ag Ql (S) Negative Normal Negative [facility] Comment on above: Order Comment: Speci men Type: BLOOD SPECIMEN Ordering Facility: [facility] Address: [address] [place] [address] Performed By: #### 7 3752-8, 95662-9, 5195-3 #### [facility] CLIA [id number] [address] [place] [address] [place] HCV Ab Ser Qlon 06-19-2024 HCV Ab Ql (S) Negative Normal Negative [facility] Comment on above: Order Comment: Speci men Type: BLOOD SPECIMEN Ordering Facility: [facility] Address: [address] [place] [address] Result Comment: The result suggests no evidence of active infection with Hepatitis C virus. Should recent infection be suspected, repeat testing may be considered 4-6 weeks after this draw. Performed By: #### R UBIGG #### [facility] CLIA [id number] [address] [place] [address] [place] HIV 1+2 Ab IA Qlon HIV 1 and 2 Ab IA.rapid Nom (S/P/Bld) Normal [facility] Comment on above: Order Comment: Speci men Type: BLOOD SPECIMEN Ordering Facility: [facility] Address: [address] [place] [address] Result Comment: Test not indicated. Performed By: #### 7 3752-8, 54426-7, 5195-3 #### [facility] CLIA [id number] [address] [place] [address] [place] HIV 1+2 Ab+HIV1 p24 Ag IA Ql Non-Reactive Normal Nonreactive [facility] Comment on above: Order Comment: Speci men Type: BLOOD SPECIMEN Ordering Facility: [facility] Address: [address] [place] [address] Performed By: #### 7 3752-8, 90258-8, 5195-3 #### [facility] CLIA [id number] [address] [place] [address] [place] HIV immunoassay testing algorithm interpretation (S/P/Bld) [Interp] Normal [facility] Comment on above: Order Comment: Speci men Type: BLOOD SPECIMEN Ordering Facility: [facility] Address: [address] [place] [address] Result Comment: No e vidence of HIV-1 or HIV-2 infection. Should recent infection be suspected, repeat testing may be considered 2-3 weeks after this draw. Andrew Rev. Code 3701.243(E): This information has been [...] or diagnoses. Performed By: #### 7 3752-8, 15710-3, 5195-3 #### [facility] CLIA [id number] [address] [place] [address] [place] HbA1c (Bld)on 06-19-2024 Average glucose Estimated from glycated hemoglobin (Bld) [Mass/Vol] 97 mg/dL Normal [facility] Comment on above: Order Comment: Speci men Type: BLOOD SPECIMEN Ordering Facility: [facility] Address: [address] [place] [address] Result Comment: eAG: (Estimated average glucose) is a calculated value from HgbA1c and is accounting representative of the average blood glucose level in the last 2-3 month period. Performed By: #### 5 5454-3 #### [facility] CLIA [id number] [address] [place] [address] [place] HbA1c (Bld) [Mass fraction] 5.0 % Normal 4.3-5.6 [facility] Comment on above: Order Comment: Serafin rapp Type: BLOOD SPECIMEN Ordering Facility: [facility] Address: [address] [place] [address] Result Comment: [place] Diabetes Association guidelines indicate that patients with HgbA1c in the range 5.7-6.4% are at increased risk for development of diabetes, and intervention by lifestyle modification may be beneficial. HgbA1c greater or equal to 6.5% is considered diagnostic of diabetes. Performed By: #### 5 5454-3 #### [facility] CLIA [id number] [address] [place] [address] [place] RUBELLA IGG ANTIBODYon 06-19 RUBELLA IGG AB, QUAL Positive Normal Positive [facility] Comment on above: Order Comment: Serafin rapp Type: BLOOD SPECIMEN Ordering Facility: [facility] Address: [address] [place] [address] Result Comment: The result suggests recent or past exposure to Rubella virus or history of Rubella vaccination. Positive result may also be seen due to presence of passively-transferred antibodies. Please correlate with patient's history. Performed By: #### R UBIGG #### [facility] CLIA [id number] [address] [place] [address] [place] Reagin and Treponema pallidu m IgG and IgM [Interp]on 06-19-2024 T. pallidum IgG+IgM IA Ql (S) Non-Reactive Normal Nonreactive [facility] Comment on above: Order Comment: Serafin rapp Type: BLOOD SPECIMEN Ordering Facility: [facility] Address: [address] [place] [address] Performed By: #### 7 3752-8, 86191-9, 5195-3 #### [facility] CLIA [id number] [address] [place] [address] [place] Reagin+T pallidum IgG+IgM Se rPl-Impon 06-19-2024 Reagin and Treponema pallidum IgG and IgM [Interp] Cannot exclude recent Treponemal infection if specimen collected within 7-10 days after appearance of suspect lesions or 2-3 weeks after an exposure. Clinical correlation is required. Normal [facility] Comment on above: Order Comment: Speci men Type: BLOOD SPECIMEN Ordering Facility: [facility] Address: [address] [place] [address] Performed By: #### 7 3752-8, 95079-8, 5195-3 #### [facility] CLIA [id number] [address] [place] [address] [place] TYPE + SCREEN PRENATALon ABO O Normal [facility] Comment on above: Order Comment: Speci men Type: BLOOD SPECIMEN Ordering Facility: [facility] Address: [address] [place] [address] Performed By: #### T SPN #### [facility] CLIA [id number] [address] [place] [address] [place] Rh Nom (Bld) Positive Normal [facility] Comment on above: Order Comment: Speci men Type: BLOOD SPECIMEN Ordering Facility: [facility] Address: [address] [place] [address] Performed By: #### T SPN #### [facility] CLIA [id number] [address] [place] [address] [place] TYPE AND SCREEN EXPIRATION 06/22/2024 23:59 Normal [facility] Comment on above: Order Comment: Speci men Type: BLOOD SPECIMEN Ordering Facility: [facility] Address: [address] [place] [address] Performed By: #### T SPN #### [facility] CLIA [id number] [address] [place] [address] [place] Bacteria Ur Culton 4 Bacteria identified Cx Nom (U) ORGANISM ID: 1 10,000 -<50,000 CFU/ml Normal [facility] Normal [facility] Comment on above: Performed By: #### R UBIGG #### [facility] CLIA [id number] [address] [place] [address] [place] C. trachomatis+N. gonorrhoea e DNA KATHY+probe Ql (Unsp spec)on 05-18-2024 C. trachomatis rRNA KATHY+probe Ql (Unsp spec) Not detected Normal Not detected [facility] Comment on above: Order Comment: Speci men Type: BLOOD SPECIMEN Ordering Facility: [facility] Address: [address] [place] [address] Performed By: #### R UBIGG #### [facility] CLIA [id number] [address] [place] [address] [place] N. gonorrhoeae rRNA KATHY+probe Ql (Unsp spec) Not detected Normal Not detected [facility] Comment on above: Order Comment: Speci men Type: BLOOD SPECIMEN Ordering Facility: [facility] Address: [address] [place] [address] Performed By: #### R UBIGG #### [facility] CLIA [id number] [address] [place] [address] [place] PAP TESTon 05-18-2024 ADEQUACY Satisfactory for interpretation. Normal [facility] Comment on above: Order Comment: Speci men Type: FLUID SPECIMEN Ordering Facility: [facility] Address: [address] [place] [address] Performed By: #### Gavino [id number] #### [facility] CLIA [id number] [address] [place] [address] [place] [facility] CLIA [id number] [address] [place] [address] [place] CASE REPORT Normal [facility] Comment on above: Order Comment: Speci men Type: FLUID SPECIMEN Ordering Facility: [facility] Address: [address] [place] [address] Result Comment: Gyne cologic Cytology Report Case: [id number] Authorizing Provider: Orquidea Nielsen APRN.WAGON DRIVER Collected: 05/18/2024 09:10 AM Ordering Location: OB/Gynecology Received: 05/18/2024 11:50 AM First Screen: Gladkaya, Ligia, CT, ASCP Specimen: Pap Test, ThinPrep, Cervix Performed By: #### L [id number] #### [facility] CLIA [id number] [address] [place] [address] [place] [facility] CLIA [id number] [address] [place] [address] [place] CLINICAL HISTORY, CYTOLOGY, COPY CHASER Routine Exam Normal [facility] Comment on above: Order Comment: Speci men Type: FLUID SPECIMEN Ordering Facility: [facility] Address: [address] [place] [address] Performed By: #### L [id number] #### [facility] CLIA [id number] [address] [place] [address] [place] [facility] CLIA [id number] [address] [place] [address] [place] FINAL PERFORMING LAB Normal [facility] Comment on above: Order Comment: Speci men Type: FLUID SPECIMEN Ordering Facility: [facility] Address: [address] [place] [address] Result Comment: Tech nical component, rattan worker screening performed at [facility], [address] [place] [address] CLIA# [id number] Diagnostic interpretation performed at [facility], [address] [id number] CLIA# [id number] Six Sigma Black Trainer: Soraida Delaney M.D. Performed By: #### L [id number] #### [facility] CLIA [id number] [address] [place] [address] [place] [facility] CLIA [id number] [address] [place] [address] [place] INTERPRETATION, CYTOLOGY, COPY CHASER Normal [facility] Comment on above: Order Comment: Speci men Type: FLUID SPECIMEN Ordering Facility: [facility] Address: [address] [place] [address] Result Comment: Nega tive for intraepithelial lesion or malignancy. Performed By: #### L [id number] #### [facility] CLIA [id number] [address] [place] [address] [place] [facility] CLIA [id number] [address] [place] [address] [facility] 03/28/2024 Normal [facility] Comment on above: Order Comment: Speci men Type: FLUID SPECIMEN Ordering Facility: [facility] Address: [address] [place] [address] Performed By: #### L [id number] #### [facility] CLIA [id number] [address] [place] [address] [place] [facility] CLIA [id number] [address] [place] [address] [place] PAP DISCLAIMER COMMENT The Pap Smear is a screening test for cervical cancer. False negative results occur with all screening tests, emphasizing the need for rescreening at recommended intervals, and clinical correlation. Normal [facility] Comment on above: Order Comment: Speci men Type: FLUID SPECIMEN Ordering Facility: [facility] Address: [address] [place] [address] Performed By: #### L [id number] #### [facility] CLIA [id number] [address] [place] [address] [place] [facility] CLIA [id number] [address] [place] [address] [place] PAP BRICK MAKER COMMENT This specimen has been analyzed by the ThinPrep Imaging System, an automated imaging and review system, which assists the laboratory in evaluating cells on ThinPrep Pap tests. Following automated imaging, selected urrutia from every slide are reviewed by a rattan worker. Normal [facility] Comment on above: Order Comment: Speci men Type: FLUID SPECIMEN Ordering Facility: [facility] Address: [address] [place] [address] Performed By: #### L [id number] #### [facility] CLIA [id number] [address] [place] [address] [place] [facility] CLIA [id number] [address] [place] [address] [place] POC ASSISTANT CHIEF ENGINEER ULTRASOUNDon 05-18-20 Indication Confirmation of intrauterine . [...] Read By: Orquidea Nielsen CNP MATERNAL MEDICINE [facility] Radiology Study observation (narrative) [facility] Vital Signs Date Time Vital Sign Value Performing Clinician Jael saenz 12-25-2024 08:53-0400 Body weight 107.96 kg Josephine Felix MD Work Phone: [facility] 12-25-2024 08:53-0400 Diastolic blood pressure 78 mm[Hg] Josephine Felix MD Work Phone: [facility] 12-25-2024 08:53-0400 Systolic blood pressure 132 mm[Hg] Josephine Felix MD Work Phone: [facility] 12-18-2024 09:05-0400 Body weight 108.23 kg Monica France SYSTEMS ADMINISTRATION ANALYST.CNM Work Phone: [facility] 12-18-2024 09:05-0400 Diastolic blood pressure 72 mm[Hg] Monica France SYSTEMS ADMINISTRATION ANALYST.CNM Work Phone: [facility] 12-18-2024 09:05-0400 Systolic blood pressure 120 mm[Hg] Monica France SYSTEMS ADMINISTRATION ANALYST.CNM Work Phone: [facility] 12-11-2024 09:17-0400 Body weight 107.5 kg Calli Guerrero MD Work Phone: [facility] 12-11-2024 09:17-0400 Diastolic blood pressure 70 mm[Hg] Calli Guerrero MD Work Phone: [facility] 12-11-2024 09:17-0400 Systolic blood pressure 120 mm[Hg] Calli Guerrero MD Work Phone: [facility] 12-04-2024 10:18-0400 Body weight 106.78 kg Carol Hudson MD Work Phone: [facility] 12-04-2024 10:18-0400 Diastolic blood pressure 70 mm[Hg] Carol Hudson MD Work Phone: [facility] 12-04-2024 10:18-0400 Systolic blood pressure 106 mm[Hg] Carol Hudson MD Work Phone: [facility] 11-26-2024 09:47-0400 Body weight 103.87 kg Calli Guerrero MD Work Phone: [facility] 11-26-2024 09:47-0400 Diastolic blood pressure 70 mm[Hg] Calli Guerrero MD Work Phone: [facility] 11-26-2024 09:47-0400 Systolic blood pressure 120 mm[Hg] Calli Guerrero MD Work Phone: [facility] 11-20-2024 09:41-0400 Body weight 104.96 kg Calli Guerrero MD Work Phone: [facility] 11-20-2024 09:41-0400 Diastolic blood pressure 76 mm[Hg] Calli Guerrero MD Work Phone: [facility] 11-20-2024 09:41-0400 Systolic blood pressure 120 mm[Hg] Calli Guerrero MD Work Phone: [facility] 11-05-2024 13:06-0400 Body weight 104.78 kg Rochelle Reis MD Work Phone: [facility] 11-05-2024 13:06-0400 Diastolic blood pressure 72 mm[Hg] Rochelle Reis MD Work Phone: [facility] 11-05-2024 13:06-0400 Systolic blood pressure 126 mm[Hg] Rochelle Reis MD Work Phone: [facility] 10-22-2024 08:28-0400 Body weight 104.06 kg Carol Hudson MD Work Phone: [facility] 10-22-2024 08:28-0400 Diastolic blood pressure 60 mm[Hg] Carol Hudson MD Work Phone: [facility] 10-22-2024 08:28-0400 Systolic blood pressure 100 mm[Hg] Carol Hudson MD Work Phone: [facility] 10-20-2024 16:15-0400 Diastolic blood pressure 70 mm[Hg] Fidelia Trammell MD Work Phone: [facility] 10-20-2024 16:15-0400 Heart rate 68 /min Fidelia Trammell MD Work Phone: [facility] 10-20-2024 16:15-0400 SaO2% (BldA) [Mass fraction] 100 % Fidelia Trammell MD Work Phone: [facility] 10-20-2024 16:15-0400 Systolic blood pressure 109 mm[Hg] Fidelia Trammell MD Work Phone: [facility] 10-20-2024 13:22-0400 Body weight 105.3 kg Fidelia Trammell MD Work Phone: [facility] 10-09-2024 08:28-0400 Body weight 103.6 kg Carol Hudson MD Work Phone: [facility] 10-09-2024 08:28-0400 Diastolic blood pressure 78 mm[Hg] Carol Hudson MD Work Phone: [facility] 10-09-2024 08:28-0400 Systolic blood pressure 124 mm[Hg] Carol Hudson MD Work Phone: [facility] 09-10-2024 09:57-0400 Body weight 100.34 kg Rochelle Reis MD Work Phone: [facility] 09-10-2024 09:57-0400 Diastolic blood pressure 72 mm[Hg] Rochelle Reis MD Work Phone: [facility] 09-10-2024 09:57-0400 Systolic blood pressure 120 mm[Hg] Rochelle Reis MD Work Phone: [facility] 08-14-2024 09:08-0400 Body weight 97.52 kg Calli Guerrero MD Work Phone: [facility] 08-14-2024 09:08-0400 Diastolic blood pressure 70 mm[Hg] Calli Guerrero MD Work Phone: [facility] 08-14-2024 09:08-0400 Systolic blood pressure 126 mm[Hg] Calli Guerrero MD Work Phone: [facility] 07-17-2024 08:27-0500 Body weight 94.35 kg Vinod Griffin APRN.WAGON DRIVER Work Phone: [facility] 07-17-2024 08:27-0500 Diastolic blood pressure 70 mm[Hg] Vinodsavana Griffin SYSTEMS ADMINISTRATION ANALYST.WAGON DRIVER Work Phone: [facility] 07-17-2024 08:27-0500 Systolic blood pressure 122 mm[Hg] Vinod Haury SYSTEMS ADMINISTRATION ANALYST.WAGON DRIVER Work Phone: [facility] 06-19-2024 12:41-0500 Body weight 93.62 kg Calli Guerrero MD Work Phone: [facility] 06-19-2024 12:41-0500 Diastolic blood pressure 80 mm[Hg] Calli Guerrero MD Work Phone: [facility] 06-19-2024 12:41-0500 Systolic blood pressure 122 mm[Hg] Calli Guerrero MD Work Phone: [facility] 05-18-2024 08:26-0500 Body weight 92.08 kg Orquidea Gianna SYSTEMS ADMINISTRATION ANALYST.WAGON DRIVER Work Phone: [facility] 05-18-2024 08:26-0500 Diastolic blood pressure 64 mm[Hg] Orquidea Barry SYSTEMS ADMINISTRATION ANALYST.WAGON DRIVER Work Phone: [facility] 05-18-2024 08:26-0500 Systolic blood pressure 122 mm[Hg] Orquidea Gianna SYSTEMS ADMINISTRATION ANALYST.WAGON DRIVER Work Phone: [facility] Encounters Encounter Date Encounter Type Care Provider Facility Start: 01-02-2025 ambulatory Carol Hudson Facility:[facility] Start: 12-31-2024 End: 12-31-2024 ambulatory CHRISTINE LEYVA Facility:[facility] Start: 12-25-2024 End: 12-25-2024 Patient encounter procedure Josephine Felix MD Work Phone: OB/Gynecology Comment on above: Obesity in (HCC) (Primary Dx); 38 weeks gestation of (HCC) Start: 12-25-2024 End: 12-25-2024 ambulatory JOSEPHINE FELIX Facility:[facility] Start: 12-18-2024 End: 12-18-2024 Patient encounter procedure Monica France SYSTEMS ADMINISTRATION ANALYST.CNM Work Phone: OB/Gynecology Comment on above: 37 weeks gestation o f (HCC) (Primary Dx); Supervision of high risk in third trimester (HCC); Obesity in (HCC) Start: 12-18-2024 End: 12-18-2024 ambulatory MONICA FRANCE Facility:[facility] Start: 12-11-2024 End: 12-11-2024 Patient encounter procedure Calli Guerrero MD Work Phone: OB/Gynecology Comment on above: Supervision of high risk in third trimester (HCC) (Primary Dx); Obesity in (HCC); 36 weeks gestation of (HCC) Start: 12-11-2024 End: 12-11-2024 ambulatory CALLI GUERRERO Facility:[facility] Start: 12-04-2024 End: 12-04-2024 Patient encounter procedure Carol Hudson MD Work Phone: OB/Gynecology Comment on above: Supervision of high risk in third trimester (HCC) (Primary Dx); 35 weeks gestation of (HCC); Obesity in (HCC); Encounter for supervision of normal first in second trimester (HCC) Start: 12-04-2024 End: 12-04-2024 ambulatory CAROL HUDSON Facility:[facility] Start: 11-26-2024 End: 11-26-2024 Patient encounter procedure Calli Guerrero MD Work Phone: OB/Gynecology Comment on above: Supervision of high risk in third trimester (HCC) (Primary Dx); Obesity in (HCC); 34 weeks gestation of (HCC) Start: 11-26-2024 End: 11-26-2024 ambulatory CALLI GUERRERO Facility:[facility] Start: 11-20-2024 End: 11-20-2024 Patient encounter procedure Calli Guerrero MD Work Phone: OB/Gynecology Comment on above: 33 weeks gestation o f (HCC) (Primary Dx); Supervision of high risk in third trimester (HCC); Obesity in (HCC) Start: 11-20-2024 End: 11-20-2024 ambulatory CALLI GUERRERO Facility:[facility] Start: 11-05-2024 End: 11-05-2024 Patient encounter procedure Rochelle Reis MD Work Phone: OB/Gynecology Comment on above: Supervision of high risk in third trimester (HCC) (Primary Dx); 31 weeks gestation of (HCC); Obesity in (HCC) Start: 11-05-2024 End: 11-05-2024 ambulatory ROCHELLE REIS [facility] Start: 10-22-2024 End: 10-22-2024 Patient encounter procedure Carol Hudson MD Work Phone: OB/Gynecology Comment on above: Supervision of high risk in second trimester (HCC) (Primary Dx); 29 weeks gestation of (HCC); Obesity in (HCC); Need for vaccination Start: 10-22-2024 End: 10-22-2024 [facility] Start: 10-20-2024 End: 10-20-2024 Patient encounter procedure Fidelia Trammell MD Work Phone: Allergy Comment on above: Eul-zdag-wkyqjrr adv erse effect of medication, initial encounter (Primary Dx) Start: 10-20-2024 End: 10-20-2024 [facility] VINOD GRIFFIN [facility] Start: 10-12-2024 End: 12-12-2024 Follow-up encounter Christine Leyva MD Work Phone: OB/Gynecology Start: 10-09-2024 End: 10-09-2024 Patient encounter procedure Carol Hudson MD Work Phone: OB/Gynecology Comment on above: Supervision of high risk in second trimester (HCC) (Primary Dx); 27 weeks gestation of (HCC); Obesity in (HCC) Start: 10-09-2024 End: 10-09-2024 ambulatory [facility] Start: 09-11-2024 End: 11-11-2024 Follow-up encounter Christine [...] Start: 09-10-2024 End: 09-10-2024 ambulatory CALLI GUERRERO Facility:[facility] Start: 08-14-2024 End: 08-14-2024 ambulatory CALLI GUERRERO Facility:[facility] Start: 08-14-2024 End: 08-14-2024 Patient encounter procedure [...] End: 07-17-2024 Patient encounter procedure Vinod Griffin APRN.WAGON DRIVER Work Phone: OB/Gynecology Comment on above: Encounter for superv ision of normal first in second trimester (Primary Dx); 15 weeks gestation of ; Penicillin allergy; Supervision of high risk in second trimester; Type 1 diabetes mellitus affecting , antepartum; 12 weeks gestation of Start: 07-17-2024 End: 07-17-2024 ambulatory VINOD GRIFFIN Facility:[facility] Start: 06-19-2024 End: 06-19-2024 ambulatory ORQUIDEA BIRDSBORO Facility:[facility] Start: 06-19-2024 End: 06-19-2024 Patient encounter procedure Calli Guerrero MD Work Phone: OB/Gynecology Comment on above: 11 weeks gestation o f (Primary Dx); Screening, , for anatomic survey; Encounter for supervision of normal first in first trimester Start: 05-18-2024 End: 05-18-2024 ambulatory ORQUIDEA ADAMSONF Facility:[facility] Start: 05-18-2024 End: 05-18-2024 Patient encounter procedure Orquidea Nielsen SYSTEMS ADMINISTRATION ANALYST.WAGON DRIVER Work Phone: OB/Gynecology Comment on above: with [...] et rgnt non-auto w/o micrscp Monica France SYSTEMS ADMINISTRATION ANALYST.CNM Work Phone: Start: 12-11-2024 Urnls dip stick/tabl [...] Speci men Type: BLOOD SPECIMEN Ordering Facility: [facility] Address: [address] [place] [address] Performed By: #### T SPN #### [facility] CLCT [id number] [address] [address] [place] Start: 05-18-2024 Us uterus limited 1/> fetuses Orquidea Nielsen MARY JO Work Phone: Plan of Treatment Date Care Activity Detail Author Start: 10-22-2034 Urine microalbumin profile DTaP,Tdap,Td Vaccine (4 - Td or Tdap) [facility] Start: 10-31-2030 Urine microalbumin profile DTaP,Tdap,Td Vaccine (3 - Td or Tdap) [facility] Start: 05-18-2027 Screening for malign ant neoplasm of cervix Cervical Cancer Screening [facility] Start: 01-25-2025 Influenza vaccination [facility] Start: 01-08-2025 End: 01-08-2025 Patient encounter procedure 01/08/2025 9:10 AM EDT Routine Office Visit OB/Gynecology [address] [place] [address] Calli Guerrero MD [address] [place] [address] OB OB/Gynecology Comment on above: OB Start: 12-31-2024 End: 12-31-2024 Patient encounter procedure 12/31/2024 3:10 PM EDT Routine Office Visit OB/Gynecology [address] [place] [address] Christine Leyva MD [address] [place] [address] OB OB/Gynecology Comment on above: OB Start: 12-25-2024 End: 12-25-2024 Patient encounter procedure 12/25/2024 9:00 AM EDT Routine Office Visit OB/Gynecology [address] [place] [address] Josephine Bruce MD [address] [place] [address] OB OB/Gynecology Comment on above: OB Start: 12-18-2024 End: 12-18-2024 Patient encounter procedure 12/18/2024 9:15 AM EDT Routine Office Visit OB/Gynecology [address] [place] [address] Monica France APRN.[facility] [address] [place] [address] OB OB/Gynecology Comment on above: OB Start: 12-11-2024 End: 12-11-2024 Patient encounter procedure 12/11/2024 9:10 AM EDT Routine Office Visit OB/Gynecology [address] [place] [address] Calli Guerrero MD [address] [place] [address] OB OB/Gynecology Comment on above: OB Start: 12-04-2024 End: 12-04-2024 Patient encounter procedure 12/04/2024 10:10 AM EDT Routine Office Visit OB/Gynecology [address] [place] [address] Carol Hudson MD [address] [place] [address] Ob OB/Gynecology Comment on above: Ob Start: 11-26-2024 End: 11-26-2024 Patient encounter procedure 11/26/2024 9:40 AM EDT Routine Office Visit OB/Gynecology [address] [place] [address] Calli Guerrero MD [address] [place] [address] Ob OB/Gynecology Comment on above: Ob Start: 11-20-2024 End: 11-20-2024 Patient encounter procedure 11/20/2024 9:50 AM EDT Routine Office Visit OB/Gynecology [address] [place] [address] Calli Guerrero MD [address] [place] [address] OB OB/Gynecology Comment on above: OB Start: 11-05-2024 End: 11-05-2024 Patient encounter procedure 11/05/2024 1:10 PM EDT Routine Office Visit OB/Gynecology [address] [place] [address] Rochelle Reis MD [address] [place] [address] OB OB/Gynecology Comment on above: OB Start: 10-22-2024 End: 10-22-2024 Patient encounter procedure 10/22/2024 8:30 AM EDT Routine Office Visit OB/Gynecology [address] [place] [address] Carol Hudson MD [address] [place] [address] OB OB/Gynecology Comment on above: OB Start: 10-20-2024 End: 10-20-2024 Patient encounter procedure 10/20/2024 1:15 PM EDT Office Visit Allergy [address] [id number] Fidelia Trammell MD [address], [place] [id number] Test for Penicillin allergy Allergy Comment on above: Test for Penicillin allergy Start: 10-13-2024 End: 10-13-2024 ambulatory 10/13/2024 7:30 AM EDT Results Only [place] [facility] [address] [place] [address] [place] [facility] Start: 10-10-2024 End: 01-09-2025 ANEMIA REFLEX PANEL ANEMIA REFLEX PANEL Lab Routine 23 weeks gestation of ([facility]) Supervision of high risk in second trimester ([facility]) Expected: 10/10/2024 (Approximate), Expires: 01/09/2025 [facility] Comment on above: Expected: 10/10/2024 (Approximate), Expires: 01/09/2025 Start: 10-10-2024 End: 09-10-2025 GESTATIONAL GLUCOSE SCREEN, 1-HOUR, 50 GRAM, NON-FASTING GESTATIONAL GLUCOSE SCREEN, 1-HOUR, 50 GRAM, NON-FASTING Lab Routine Screening for diabetes mellitus Expected: 10/10/2024 (Approximate), Expires: 09/10/2025 [facility] Work Phone: Comment on above: Expected: 10/10/2024 (Approximate), Expires: 09/10/2025 Start: 10-10-2024 End: 09-10-2025 SYPHILIS TREPONEMAL W/REFLEX SYPHILIS TREPONEMAL W/REFLEX Lab Routine 23 weeks gestation of (HCC) Supervision of high risk in second trimester (HCC) Expected: 10/10/2024 (Approximate), Expires: 09/10/2025 [facility] Comment on above: Expected: 10/10/2024 (Approximate), Expires: 09/10/2025 Start: 10-09-2024 End: 10-09-2024 Patient encounter procedure 10/09/2024 8:30 AM EDT Routine Office Visit OB/Gynecology [address] [place] [address] Carol Hudson MD [address] [place] [address] OB Routine OB/Gynecology Comment on above: OB Routine Start: 10-09-2024 End: 10-09-2024 ambulatory 10/09/2024 8:15 AM EDT Results Only [place] [facility] [address] [place] [address] Glucose test and LABS [facility] Comment on above: Glucose test and LAB S Start: 09-11-2024 End: 09-11-2024 Patient encounter procedure 09/11/2024 10:30 AM EDT Routine Office Visit OB/Gynecology [address] [place] [address] Calli Guerrero MD [address] [place] [address] OB OB/Gynecology Comment on above: OB Start: 08-14-2024 End: 08-14-2024 Patient encounter procedure [facility]aternal [facility] Comment on above: Anatomy Anatomy/OB Start: 07-17-2024 End: 07-17-2024 Patient encounter procedure 07/17/2024 8:45 AM EST Routine Office Visit OB/Gynecology [address] [place] [address] Vinod Griffin APRN.[employer] [address] [place] [address] OB OB/Gynecology Comment on above: OB Start: 06-19-2024 End: 06-19-2025 OBSTETRIC ULTRASOUND WHI OBSTETRIC ULTRASOUND WHI Anc Imaging Routine Screening, , for anatomic survey Expected: 06/19/2024, Expires: 06/19/2025 [facility] Work Phone: Comment on above: Expected: 06/19/2024 , Expires: 06/19/2025 Start: 06-19-2024 End: 06-19-2024 Patient encounter procedure 06/19/2024 12:50 PM EST Routine Office Visit OB/Gynecology [address] [place] [address] Calli Guerrero MD [address] [place] [address] OB/Gynecology Comment on above: Start: 05-18-2024 End: 08-17-2024 ANEMIA REFLEX PANEL ANEMIA REFLEX PANEL Lab Routine 7 weeks gestation of Expected: 05/18/2024, Expires: 08/17/2024 [facility] Work Phone: Comment on above: Expected: 05/18/2024 , Expires: 08/17/2024 Start: 05-18-2024 End: 08-17-2024 Hemoglobin A1c in Blood HEMOGLOBIN A1C Lab Routine 7 weeks gestation of Expected: 05/18/2024, Expires: 08/17/2024 [facility] Comment on above: Expected: 05/18/2024 , Expires: 08/17/2024 Start: 05-18-2024 End: 08-17-2024 Hepatitis B virus surface Ag [Presence] in Serum HEPATITIS B SURFACE ANTIGEN Lab Routine 7 weeks gestation of Expected: 05/18/2024, Expires: 08/17/2024 [facility] Comment on above: Expected: 05/18/2024 , Expires: 08/17/2024 Start: 05-18-2024 End: 08-17-2024 Hepatitis C virus Ab [Presence] in Serum HEPATITIS C ANTIBODY IA WITH CONFIRMATION Lab Routine 7 weeks gestation of Expected: 05/18/2024, Expires: 08/17/2024 [facility] Comment on above: Expected: 05/18/2024 , Expires: 08/17/2024 Start: 05-18-2024 End: 08-17-2024 HIV 1+2 Ab [Presence] in Serum or Plasma by Immunoassay HIV 1/2 COMBO WITH REFLEX TO DIFFERENTIATION Lab Routine 7 weeks gestation of Expected: 05/18/2024, Expires: 08/17/2024 [facility] Comment on above: Expected: 05/18/2024 , Expires: 08/17/2024 Start: 05-18-2024 End: 08-17-2024 RUBELLA IGG ANTIBODY RUBELLA IGG ANTIBODY Lab Routine 7 weeks gestation of Expected: 05/18/2024, Expires: 08/17/2024 [facility] Comment on above: Expected: 05/18/2024 , Expires: 08/17/2024 Start: 05-18-2024 End: 08-17-2024 SYPHILIS TREPONEMAL W/REFLEX SYPHILIS TREPONEMAL W/REFLEX Lab Routine 7 weeks gestation of Expected: 05/18/2024, Expires: 08/17/2024 [facility] Comment on above: Expected: 05/18/2024 , Expires: 08/17/2024 Start: 05-18-2024 End: 08-17-2024 TYPE + SCREEN TYPE + SCREEN Blood Bank Routine 7 weeks gestation of Expected: 05/18/2024, Expires: 08/17/2024 [facility] Comment on above: Expected: 05/18/2024 , Expires: 08/17/2024 Start: 01-26-2024 Covid-19 Vaccine ( season) Covid-19 Vaccine ( season) [facility] Start: 01-26-2024 Influenza vaccination Influenza Vacc ine (#1) [facility] Start: 2016 Screening for malign ant neoplasm of cervix Cervical Cancer Screening [facility] Start: 2014 Hepatitis B Vaccine (1 of 3 - 19+ 3-dose series) Hepatitis B Vaccine (1 of 3 - 19+ 3-dose series) [facility] Start: 2013 Anxiety Screening Anxiety Screening [facility] Start: 2013 Depression Screening Depression Scre ening [facility] Start: 2013 Hepatitis C screening Hepatitis C Sc reening [facility] Start: 2013 HIV screening HIV Screening [facility] Bacteria identified in Urine by Culture URINE CULTURE Microbiology Routine 7 weeks gestation of 05/18/2024 9:14 AM [facility] Chlamydia trachomatis+Neisseria gonorrhoeae DNA [Presence] in Unspecified specimen by KATHY with probe detection GONORRHEA/CHLAMYDIA NAAT Lab Routine 7 weeks gestation of 05/18/2024 9:10 AM [facility] PAP TEST PAP TEST Lab Rou madalyn Screening for cervical cancer 05/18/2024 9:10 AM [facility] ROUTINE, GR OUP B STREPTOCOCCUS BY PCR ROUTINE, GROUP B STREPTOCOCCUS BY PCR Microbiology Routine Supervision of high risk in third trimester (HCC) 36 weeks gestation of (HCC) 12/11/2024 9:38 AM EDT [facility] Work Phone: URINE OB DIP B/O URINE OB DIP B/ O Lab Routine Supervision of high risk in third trimester (HCC) Obesity in (HCC) 34 weeks gestation of (HCC) Ordered: 11/26/2024 [facility] Work Phone: Comment on above: Ordered: 11/26/2024 Immunizations Immunization Date Immunization Notes Care Provider Fa cility 10-22-2024 tetanus toxoid, redu ana diphtheria toxoid, and acellular pertussis vaccine, adsorbed Carol Hudson MD Work Phone: [facility] 10-31-2020 tetanus toxoid, redu ana diphtheria toxoid, and acellular pertussis vaccine, adsorbed Orquidea Nielsen SYSTEMS ADMINISTRATION ANALYST.[facility] Work Phone: [facility] 12-09-2008 Meningococcal, MCV4, unspecified conjugate formulation(groups A, C, Y and W-135) [employer]qu[employer] Gianna SYSTEMS ADMINISTRATION ANALYST.[employer] Work Phone: [facility] Work Phone: 12-09-2008 tetanus toxoid, redu ana diphtheria toxoid, and acellular pertussis vaccine, adsorbed Orquidea Gianna SYSTEMS ADMINISTRATION ANALYST.[employer] Work Phone: [facility] Payers Date Payer Category Payer Self-pay 2022 Private Health Insurance [id number] 2022 Private Health Insurance [id number] Unknown [id number] Social History Date Type Detail Facility Start: 05-18-2024 [facility] History of tobacco use Passive smoker [facility] Start: 05-18-2024 Tobacco use and exposure Smoke less tobacco non-user [facility] Start: 05-18-2024 End: 12-18-2024 Alcoholic beverage intake Current drinker of alcohol (finding) [facility] Start: 05-18-2024 End: 06-19-2024 History of Social function [facility] Start: 05-18-2024 End: 06-19-2024 Tobacco use panel [facility] National Score (1-10 0), lower number is lower risk 60 [facility] Start: 05-18-2024 Tobacco Comment mom smokes inside Cl [facility] Start: 02-15-2021 Alcohol Comment occ. G[facility]bertoa [facility] Start: 04-11-2024 [facility] Start: 1995 [facility] at [facility] Goals Date Patient Goal Desired Activity /State Personal health goal Functional Status Date Assessment Result Facility 12-25-2014 Are you deaf, or do you have serious difficulty hearing No 12/25/2014 12:49 PM EDT Terese Mallory MA No [facility] 12-25-2014 Are you blind, or do you have serious difficulty seeing, even when wearing glasses No 12/25/2014 12:49 PM EDT Terese Mallory MA No [facility] 12-25-2014 Do you have serious difficulty walking or climbing stairs No 12/25/2014 12:49 PM EDT Terese Mallory MA No [facility] 12-25-2014 Do you have difficul ty dressing or bathing No 12/25/2014 12:49 PM EDT Terese Mallory MA No [facility] 12-25-2014 Because of a physica l, mental, or emotional condition, do you have difficulty doing errands alone such as visiting a physician's office or shopping No 12/25/2014 12:49 PM EDT Terese Mallory MA [facility] Mental Status Date Assessment Result Facility 12-25-2014 Because of a physica l, mental, or emotional condition, do you have serious difficulty concentrating, remembering, or making decisions No 12/25/2014 12:49 PM EDT Terese Mallory MA [facility] Clinical Notes 05-18-2024 to 12-25-2024 Quick [...] was discussed with the patient or authorized accounting representative. The patient or authorized accounting representative has agreed to proceed with the sensitive examination. @38.6 weeks Assessment & Plan Obesity in (HCC) Continue ASA 38 weeks gestation of ([facility]) Routine care weekly Reviewed Elective IOL- declines now but will consider at next appointment Kick counts and labor reviewed Orders: URINE OB DIP B/O Josephine Kendall MD [facility] 12-25-2024 Miscellaneous Notes DM-Pt doing well. Denies vaginal Bleeding, Leaking fluid, or regular Contractions. Pt reports good movement Physical Exam: Gen: female in no apparent distress Abd: soft, Gravid. Non tender to palpation. See flow sheet Participation of a fellow, resident, medical student, or advanced practice provider student in performing the sensitive examination was discussed with the patient or authorized accounting representative. The patient or authorized accounting representative has agreed to proceed with the sensitive examination. @38.6 weeks Assessment & Plan Obesity in (HCC) Continue ASA 38 weeks gestation of ([facility]) Routine care weekly Reviewed Elective IOL- declines now but will consider at next appointment Kick counts and labor reviewed Orders: URINE OB DIP B/O Josephine Kendall MD documented in this encounter [facility] 12-25-2024 Zoe Wagoner LPN - 12/25/2024 8:49 AM EDT SEQUENTIAL SCREENINGS The [facility] offers sequential screenings for women who are [...] It will require an appointment with our facility environmental technician. This is not an ultrasound performed [...] the above symptoms, contact our office at [phone] and ask to speak with a nurse. After hours, you can call doctors registry at [phone] OR call [facility] at [phone] and ask to have the doctor aircraft rigging and controls mechanic paged. If you consider this an emergency, dial 8-5-3 or go to your nearest emergency department. NEED HELP? Are you dealing with a violent or abusive relationship? Are you a victim of rape or sexual assult? Call [facility] ([place]) 24 hour Crisis Hotline: 938.901.6288 or 576-958-6492. MANUAL Your Guide to a Healthy manual is now on-line. Visit the [email or web address] Yessenia to download your free copy documented in this encounter [facility] 12-18-2024 Progress note Formatting of t his note might be different from the original. S: Kaur King is a 29 year old female who presents at 37 weeks gestation for a routine visit. Positive movements. Occasional nroa escalera contractions that resolve on own. Denies headache, visual changes, chest pain, shortness of breath, vaginal bleeding, leakage of fluid, or dysuria. Feeling well, no complaints. O: See flow sheet Gen: No apparent distress Abd: Gravid, nontender ASSESSMENT/PLAN: 1. 37 weeks gestation of ([facility]) - ICD9: V22.2, ICD10: Z3A.37 (primary diagnosis) 2. Supervision of high risk in third trimester ([facility]) - ICD9: V23.9, ICD10: O09.93 3. Obesity in ([facility]) - ICD9: 649.10, ICD10: O99.210 - [...] - RTO 1 week Monica France APRN.CNM [facility] Work Phone: 12-18-2024 Miscellaneous Notes S: Kaur [...] nontender ASSESSMENT/PLAN: 1. 37 weeks gestation of ([facility]) - ICD9: V22.2, ICD10: Z3A.37 (primary diagnosis) 2. Supervision of high risk in third trimester ([facility]) - ICD9: V23.9, ICD10: O09.93 3. Obesity in ([facility]) - ICD9: 649.10, ICD10: O99.210 - [...] Monica France APRN.CNM documented in this encounter [facility] 12-18-2024 Instructions Tamar Harrington MA - 12/18/2024 9:03 AM EDT SEQUENTIAL SCREENINGS The [facility] offers sequential screenings for women who are [...] It will require an appointment with our facility environmental technician. This is not an ultrasound performed [...] the above symptoms, contact our office at [phone] and ask to speak with a nurse. After hours, you can call doctors registry at [phone] OR call [facility] at [phone] and ask to have the doctor aircraft rigging and controls mechanic paged. If you consider this an emergency, dial 9-1-2 or go to your nearest emergency department. NEED HELP? Are you dealing with a violent or abusive relationship? Are you a victim of rape or sexual assult? Call [facility] ([place]) 24 hour Crisis Hotline: 530.981.2527 or 707-638-7705. MANUAL Your Guide to a Healthy manual is now on-line. Visit the [email or web address] Yessenia to download your free copy documented in this encounter [facility] 12-11-2024 Progress note Formatting of t his [...] Supervision of high risk in third trimester ([facility]) - ICD9: V23.9, ICD10: O09.93 (primary diagnosis) - URINE OB DIP B/O - ROUTINE, GROUP B STREPTOCOCCUS BY PCR 2. Obesity in ([facility]) - ICD9: 649.10, ICD10: O99.210 Prepregnancy BMI 30 - URINE OB DIP B/O 3. 36 weeks gestation of ([facility]) - ICD9: V22.2, ICD10: Z3A.36 - URINE OB DIP B/O - ROUTINE, GROUP B STREPTOCOCCUS BY PCR Calli Guerrero MD [facility] 12-11-2024 Miscellaneous Notes S: Kaur King is a [...] Supervision of high risk in third trimester ([facility]) - ICD9: V23.9, ICD10: O09.93 (primary diagnosis) - URINE OB DIP B/O - ROUTINE, GROUP B STREPTOCOCCUS BY PCR 2. Obesity in ([facility]) - ICD9: 649.10, ICD10: O99.210 Prepregnancy BMI 30 - URINE OB DIP B/O 3. 36 weeks gestation of ([facility]) - ICD9: V22.2, ICD10: Z3A.36 - URINE OB DIP B/O - ROUTINE, GROUP B STREPTOCOCCUS BY PCR Calli Guerrero MD documented in this encounter [facility] 12-11-2024 Instructions Disha Martinez MA - 12/11/2024 9:08 AM EDT SEQUENTIAL SCREENINGS The [facility] offers sequential screenings for women who are [...] It will require an appointment with our facility environmental technician. This is not an ultrasound performed [...] the above symptoms, contact our office at [phone] and ask to speak with a nurse. After hours, you can call doctors registry at [phone] OR call [facility] at [phone] and ask to have the doctor aircraft rigging and controls mechanic paged. If you consider this an emergency, dial 9-1-8 or go to your nearest emergency department. NEED HELP? Are you dealing with a violent or abusive relationship? Are you a victim of rape or sexual assult? Call [facility] [place] ([facility] 24 hour Crisis Hotline: 948.930.6766 or 148-311-6549. MANUAL Your Guide to a Healthy manual is now on-line. Visit [email or web address] [email or web address] to download your free copy documented in this encounter [facility] 12-04-2024 Progress note Formatting of t his note might be different from the original. SW- Pt doing well. No ctx, vb, lof. Good FM PE: Gen- NAD, well appearing Abd- Soft, gravid, NT See flowsheet A/p 35 wk gestation - Picked a sharebroker - Completed birthing class - Will being plan sheet next visit - Plans on - Discussed eating dates 36 weeks - Interested in elective IOL - RTO 1 wk Carol Hudson DO [facility] 12-04-2024 Miscellaneous Notes SW- Pt doing well. No ctx, vb, lof. Good FM PE: Gen- NAD, well appearing Abd- Soft, gravid, NT See flowsheet A/p 35 wk gestation - Picked a sharebroker - Completed birthing class - Will being plan sheet next visit - Plans on - Discussed eating dates 36 weeks - Interested in elective IOL - RTO 1 wk Carol Hudson DO documented in this encounter [facility] 12-04-2024 Instructions Tamar Harrington MA - 12/04/2024 10:16 AM EDT SEQUENTIAL SCREENINGS The [facility] offers sequential screenings for women who are [...] It will require an appointment with our facility environmental technician. This is not an ultrasound performed [...] the above symptoms, contact our office at [phone] and ask to speak with a nurse. After hours, you can call doctors registry at [phone] OR call [facility] at [phone] and ask to have the doctor aircraft rigging and controls mechanic paged. If you consider this an emergency, dial 9--3 or go to your nearest emergency department. NEED HELP? Are you dealing with a violent or abusive relationship? Are you a victim of rape or sexual assult? Call [facility] ([place]) 24 hour Crisis Hotline: 898.692.9758 or 296-625-9777. MANUAL Your Guide to a Healthy manual is now on-line. Visit the [email or web address] Yessenia to download your free copy documented in this encounter [facility] 11-26-2024 Progress note Formatting of t his [...] Supervision of high risk in third trimester ([facility]) - ICD9: V23.9, ICD10: O09.93 (primary diagnosis) - URINE OB DIP B/O 2. Obesity in ([facility]) - ICD9: 649.10, ICD10: O99.210 Prepregnancy BMI 30 - URINE OB DIP B/O 3. 34 weeks gestation of ([facility]) - ICD9: V22.2, ICD10: Z3A.34 - URINE OB DIP B/O Calli Guerrero MD [facility] 11-26-2024 Miscellaneous Notes S: Kaur King is [...] Supervision of high risk in third trimester ([facility]) - ICD9: V23.9, ICD10: O09.93 (primary diagnosis) - URINE OB DIP B/O 2. Obesity in ([facility]) - ICD9: 649.10, ICD10: O99.210 Prepregnancy BMI 30 - URINE OB DIP B/O 3. 34 weeks gestation of ([facility]) - ICD9: V22.2, ICD10: Z3A.34 - URINE OB DIP B/O Calli Guerrero MD documented in this encounter [facility] 11-26-2024 Instructions Fatou Chicas MA - 11/26/2024 9:43 AM EDT SEQUENTIAL SCREENINGS The [facility] offers sequential screenings for women who are [...] It will require an appointment with our facility environmental technician. This is not an ultrasound performed [...] the above symptoms, contact our office at [phone] and ask to speak with a nurse. After hours, you can call doctors registry at [phone] OR call [facility] at [phone] and ask to have the doctor aircraft rigging and controls mechanic paged. If you consider this an emergency, dial or go to your nearest emergency department. NEED HELP? Are you dealing with a violent or abusive relationship? Are you a victim of rape or sexual assult? Call [facility] ([place]) 24 hour Crisis Hotline: 953.752.7645 or 352-615-9155. MANUAL Your Guide to a Healthy manual is now on-line. Visit the [email or web address] to download your free copy documented in this encounter [facility] 11-20-2024 Progress note Formatting of t his [...] nontender ASSESSMENT/PLAN: 1. 33 weeks gestation of ([facility]) - ICD9: V22.2, ICD10: Z3A.33 (primary diagnosis) 2. Supervision of high risk in third trimester ([facility]) - ICD9: V23.9, ICD10: O09.93 3. Obesity in ([facility]) - ICD9: 649.10, ICD10: O99.210 Prepregnancy BMI 30 Calli Guerrero MD [facility] 11-20-2024 Miscellaneous Notes S: Kaur King is [...] nontender ASSESSMENT/PLAN: 1. 33 weeks gestation of ([facility]) - ICD9: V22.2, ICD10: Z3A.33 (primary diagnosis) 2. Supervision of high risk in third trimester ([facility]) - ICD9: V23.9, ICD10: O09.93 3. Obesity in ([facility]) - ICD9: 649.10, ICD10: O99.210 Prepregnancy BMI 30 Calli Guerrero MD documented in this encounter [facility] 11-20-2024 Instructions Tamar Harrington MA - 11/20/2024 9:39 AM EDT SEQUENTIAL SCREENINGS The [facility] offers sequential screenings for women who are [...] It will require an appointment with our facility environmental technician. This is not an ultrasound performed [...] the above symptoms, contact our office at [phone] and ask to speak with a nurse. After hours, you can call doctors registry at [phone] OR call [facility] at [phone] and ask to have the doctor aircraft rigging and controls mechanic paged. If you consider this an emergency, dial or go to your nearest emergency department. NEED HELP? Are you dealing with a violent or abusive relationship? Are you a victim of rape or sexual assult? Call [facility] ([place]) 24 hour Crisis Hotline: 883.940.1821 or 143-681-6247. MANUAL Your Guide to a Healthy manual is now on-line. Visit the [email or web address] to download your free copy documented in this encounter [facility] 11-05-2024 Progress note Formatting of t his note might be different from the original. KJ - S: Kaur denies LOF, contractions or vaginal bleeding. O: 31w5d, see flow sheet SENSITIVE EXAM: Sensitive exam not performed. A/P: Assessment & Plan Supervision of high risk in third trimester (HCC) 31 weeks gestation of (HCC) Obesity in (HCC) Reviewed PTL & FM precautions Rochelle Reis MD [facility] 11-05-2024 Miscellaneous Notes KJ - S: Kaur denies LOF, contractions or vaginal bleeding. O: 31w5d, see flow sheet SENSITIVE EXAM: Sensitive exam not performed. A/P: Assessment & Plan Supervision of high risk in third trimester (HCC) 31 weeks gestation of (HCC) Obesity in (HCC) Reviewed PTL & FM precautions Rochelle Reis MD documented in this encounter [facility] 11-05-2024 Instructions Pat Arce MA - 11/05/2024 1:04 PM EDT SEQUENTIAL SCREENINGS The [facility] offers sequential screenings for women who are [...] It will require an appointment with our facility environmental technician. This is not an ultrasound performed [...] the above symptoms, contact our office at [phone] and ask to speak with a nurse. After hours, you can call doctors registry at [phone] OR call [facility] at [phone] and ask to have the doctor aircraft rigging and controls mechanic paged. If you consider this an emergency, dial 9-1-1 or go to your nearest emergency department. NEED HELP? Are you dealing with a violent or abusive relationship? Are you a victim of rape or sexual assult? Call [facility] ([place]) 24 hour Crisis Hotline: 971.955.9483 or 461-018-5663. MANUAL Your Guide to a Healthy manual is now on-line. Visit the [email or web address] [email or web address] to download your free copy documented in this encounter [facility] 10-22-2024 Note HNO ID: [id number] Author: TAMAR HARRINGTON MA Service: ? Author Type: Building Illuminating Engineer Type: Progress Notes Filed: 10/22/2024 09:32 Note [...] severely ill: Yes Patient denies history of Guillain-Coleman Syndrome (a severe paralytic illness): Yes Tdap Adacel injection was given without incident. See immunizations for details of immunizations administered today. VIS sheet provided: Yes Provider Carol Hudson DO was present in office at time of injection. Tamar Harrington MA [facility] 10-22-2024 History of Presen t illness Narrative [...] severely ill: Yes Patient denies history of Guillain-Coleman Syndrome (a severe paralytic illness): Yes Tdap Adacel injection was given without incident. See immunizations for details of immunizations administered today. VIS sheet provided: Yes Provider Carol Hudson DO was present in office at time of injection. Tamar Harrington MA documented in this encounter [facility] 10-22-2024 Progress note Formatting of t his note might be different from the original. SW- No ctx, vb, lof. Good FM PE: Gen- NAD, well appearing Abd- Soft, gravid, NT See flowsheet A/p 29 wk gestation - Tdap today - Discussed reasons to call and upcoming expectations - Reviewed classes and peds - RTO 2 wks Carol Hudson DO [facility] 10-22-2024 Miscellaneous Notes SW- No ctx, vb, lof. Good FM PE: Gen- NAD, well appearing Abd- Soft, gravid, NT See flowsheet A/p 29 wk gestation - Tdap today - Discussed reasons to call and upcoming expectations - Reviewed classes and peds - RTO 2 wks Carol Hudson DO documented in this encounter [facility] 10-22-2024 Instructions Tamar Harrington MA - 10/22/2024 8:27 AM EDT SEQUENTIAL SCREENINGS The [facility] offers sequential screenings for women who are [...] It will require an appointment with our facility environmental technician. This is not an ultrasound performed [...] the above symptoms, contact our office at [phone] and ask to speak with a nurse. After hours, you can call doctors registry at [phone] OR call [facility] at [phone] and ask to have the doctor aircraft rigging and controls mechanic paged. If you consider this an emergency, dial 9-1-1 or go to your nearest emergency department. NEED HELP? Are you dealing with a violent or abusive relationship? Are you a victim of rape or sexual assult? Call [facility] ([place]) 24 hour Crisis Hotline: 504.581.4793 or 303-800-2662. MANUAL Your Guide to a Healthy manual is now on-line. Visit [email or web address] to download your free copy documented in this encounter [facility] 10-20-2024 Note HNO ID: [id number] Author: MAG MCCLAIN LPN Service: ? Author Type: LICENSED NURSE Type: Progress Notes Filed: 10/21/2024 21:45 Note Text: Patient is here for Penicillin testing. She is unsure if she had when younger. Both mother and father have a Penicillin allergy. [facility] 10-20-2024 History of Presen t illness Narrative [...] without adverse reaction. documented in this encounter [facility] 10-20-2024 Note HNO ID: [id number] Author: FIDELIA TRAMMELL MD Service: ? Author [...] afterwards. Tolerated the amoxicillin without adverse reaction. [facility] 10-09-2024 Progress note Formatting of t his [...] - RTO 2 wk Carol Hudson DO [facility] 10-09-2024 Miscellaneous Notes SW- Good FM. No pain, vb, lof. PE: Gen- NAD, well appearing Abd- Soft, gravid, NT See flowsheet A/p 27 wk gestation - Tdap discussed and considering - 28 wk labs today - plan sheet given - [facility] classes discussed - LARC declined - RTO 2 wk Carol Hudson DO documented in this encounter [facility] 10-09-2024 Instructions Tamar Harrington MA - 10/09/2024 8:26 AM EDT SEQUENTIAL SCREENINGS The [facility] offers sequential screenings for women who are [...] It will require an appointment with our facility environmental technician. This is not an ultrasound performed [...] the above symptoms, contact our office at [phone] and ask to speak with a nurse. After hours, you can call doctors registry at [phone] OR call [facility] at [phone] and ask to have the doctor aircraft rigging and controls mechanic paged. If you consider this an emergency, dial or go to your nearest emergency department. NEED HELP? Are you dealing with a violent or abusive relationship? Are you a victim of rape or sexual assult? Call [facility] ([place]) 24 hour Crisis Hotline: 113.757.9911 or 602-522-6009. MANUAL Your Guide to a Healthy manual is now on-line. Visit [email or web address] [place] to download your free copy documented in this encounter [facility] 09-11-2024 Progress note Formatting of t his note might be different from the original. Anatomy ultrasound reviewed. No abnormalities identified. Follow up as clinically indicated. Please place copy in ob chart. Christine Leyva MD [facility] Work Phone: 09-11-2024 Miscellaneous Notes Anatomy ultrasound reviewed. No abnormalities identified. Follow up as clinically indicated. Please place copy in ob chart. Christine Leyva MD documented in this encounter [facility] 09-10-2024 Progress note Formatting of t his [...] weight gain in . Rochelle Reis MD [facility] Work Phone: 09-10-2024 Miscellaneous Notes KJ - S: Kuar denies LOF, contractions or vaginal bleeding. O: [...] Rochelle Reis MD documented in this encounter [facility] 09-10-2024 Instructions Tamar Harrington MA - 09/10/2024 9:55 AM EDT SEQUENTIAL SCREENINGS The [facility] offers sequential screenings for women who are [...] It will require an appointment with our facility environmental technician. This is not an ultrasound performed [...] the above symptoms, contact our office at [phone] and ask to speak with a nurse. After hours, you can call doctors registry at [phone] OR call [facility] at [phone] and ask to have the doctor aircraft rigging and controls mechanic paged. If you consider this an emergency, dial 9-6-5 or go to your nearest emergency department. NEED HELP? Are you dealing with a violent or abusive relationship? Are you a victim of rape or sexual assult? Call [facility] ([place]) 24 hour Crisis Hotline: 394.699.4087 or 645-972-2641. MANUAL Your Guide to a Healthy manual is now on-line. Visit [email or web address] [place] to download your free copy documented in this encounter [facility] 09-10-2024 Note Indication Evaluation of growth. Maternal [...] 7 oz EFW by: Hadlock (HC-AC-FL) Extended Back Filler Operator 5.2 mm Extremities / Bony Struc FL [...] Anatomy completed today Gender surprise Traveling to [place], reviewed precautions ASSESSMENT/PLAN: 1. Supervision of high risk in second trimester - ICD9: V23.9, ICD10: O09.92 (primary diagnosis) - URINE OB DIP B/O Calli Guerrero MD [facility] 08-14-2024 Miscellaneous Notes S: Kaur King is a 29 year old female who presents at 01/02/2025, by Last Menstrual Period for a routine visit. Denies headache, visual changes, chest pain, shortness of breath, vaginal bleeding, leakage of fluid, or dysuria. Feeling well, no complaints. O: See flow sheet Gen: No apparent distress Abd: Gravid, nontender Anatomy completed today Gender surprise Traveling to [place], reviewed precautions ASSESSMENT/PLAN: 1. Supervision of high risk in second trimester - ICD9: V23.9, ICD10: O09.92 (primary diagnosis) - URINE OB DIP B/O Calli Guerrero MD documented in this encounter [facility] 08-14-2024 Instructions Fatou Chicas MA - 08/14/2024 8:18 AM EDT SEQUENTIAL SCREENINGS The [facility] offers sequential screenings for women who are [...] It will require an appointment with our facility environmental technician. This is not an ultrasound performed [...] the above symptoms, contact our office at [phone] and ask to speak with a nurse. After hours, you can call doctors registry at [phone] OR call [facility] at [phone] and ask to have the doctor aircraft rigging and controls mechanic paged. If you consider this an emergency, dial 9-7-3 or go to your nearest emergency department. NEED HELP? Are you dealing with a violent or abusive relationship? Are you a victim of rape or sexual assult? Call [facility] ([place]) 24 hour Crisis Hotline: 880.947.2685 or 362-330-0098. MANUAL Your Guide to a Healthy manual is now on-line. Visit [email or web address] [place] to download your free copy documented in this encounter [facility] 07-17-2024 Progress note Formatting of t his [...] weeks or sooner as needed. Vinod Griffin APRN.WAGON DRIVER [facility] 07-17-2024 Miscellaneous Notes EH - S: Kaur [...] weeks or sooner as needed. Vinod Griffin APRN.WAGON DRIVER documented in this encounter [facility] 07-17-2024 Instructions Disha Martinez MA - 07/17/2024 8:24 AM EST SEQUENTIAL SCREENINGS The [facility] offers sequential screenings for women who are [...] It will require an appointment with our facility environmental technician. This is not an ultrasound performed [...] the above symptoms, contact our office at [phone] and ask to speak with a nurse. After hours, you can call doctors registry at [phone] OR call [facility] at [phone] and ask to have the doctor aircraft rigging and controls mechanic paged. If you consider this an emergency, dial 9-1-7 or go to your nearest emergency department. NEED HELP? Are you dealing with a violent or abusive relationship? Are you a victim of rape or sexual assult? Call [facility] ([place]) 24 hour Crisis Hotline: 248.181.3576 or 033-210-9148. MANUAL Your Guide to a Healthy manual is now on-line. Visit [email or web address] [place] to download your free copy documented in this encounter [facility] 06-19-2024 Progress note Formatting of t his [...] - OBSTETRIC ULTRASOUND WHI Calli Guerrero MD [facility] 06-19-2024 Miscellaneous Notes S: Kaur King is [...] Calli Guerrero MD documented in this encounter [facility] 06-19-2024 Instructions Tamar Harrington MA - 06/19/2024 12:37 PM EST SEQUENTIAL SCREENINGS The [facility] offers sequential screenings for women who are [...] It will require an appointment with our facility environmental technician. This is not an ultrasound performed [...] the above symptoms, contact our office at [phone] and ask to speak with a nurse. After hours, you can call doctors registry at [phone] OR call [facility] at [phone] and ask to have the doctor aircraft rigging and controls mechanic paged. If you consider this an emergency, dial 3--8 or go to your nearest emergency department. NEED HELP? Are you dealing with a violent or abusive relationship? Are you a victim of rape or sexual assult? Call [facility] ([place]) 24 hour Crisis Hotline: 196.208.3787 or 845-759-3597. MANUAL Your Guide to a Healthy manual is now on-line. Visit [email or web address] [place] to download your free copy documented in this encounter [facility] 05-18-2024 History of Presen t illness Narrative [...] Status: Partner: Name: Mick Age: 31 Occupation: [employer] Gender: Male PAST MEDICAL HISTORY Diagnosis Date [...] discussed with the Patient or Patient's Authorized Furnace Utility Operator. As applicable, any other physician, advance practice provider, medical student, or other health professional student that will be observing or involved in the sensitive examination for educational or training purposes was discussed with the Patient or Authorized Furnace Utility Operator. The Patient or Authorized Furnace Utility Operator has agreed to proceed with the sensitive [...] Your guide to a health and the Wireless Sales Representative. Reviewed midwifery and auto radiator mechanic services that are available. 2) Screening: Hemoglobin [...] Orquidea Nielsen APRN.CHARLIE documented in this encounter [facility] 05-18-2024 Instructions Keira Bellamy LPN - 05/18/2024 8:03 AM EST Please select the following link to access the [facility] Your Guide to a Healthy . [email or web address] documented in this encounter [facility] 05-18-2024 Note HNO ID: [id number] Author: ORQUIDEA NIELESN APRN.WAGON DRIVER Service: ? Author Type: Nurse Practitioner Type: [...] Status: Partner: Name: Mick Age: 31 Occupation: [employer] Gender: Male PAST MEDICAL HISTORY Diagnosis Date [...] Blood in stool, (more content not included)... [facility] Evaluation note Diagnosis with uncertain dates, antepartum- Primary state, incidental Screening for cervical cancer Screening for malignant neoplasm of the cervix 7 weeks gestation of state, incidental Encounter for supervision of normal first in first trimester Supervision of normal first [facility] Diagnosis 11 weeks gestation of - Primary state, incidental Screening, , for anatomic survey Encounter for anatomic survey Encounter for supervision of normal first in first trimester Supervision of normal first [facility] Diagnosis Encounter for supervision of normal first in second trimester- Primary Supervision of normal first 15 weeks gestation of state, incidental Penicillin allergy Personal history of allergy to penicillin Supervision of high risk in second trimester Unspecified high-risk Type 1 diabetes mellitus affecting , antepartum 12 weeks gestation of state, incidental [facility] Diagnosis Supervision of high risk in second trimester- Primary Unspecified high-risk [facility] Diagnosis Encounter for anatomic survey- Primary Screening, , for anatomic survey Encounter for anatomic survey [facility] Diagnosis Screening for diabetes mellitus- Primary 23 weeks gestation of (HCC) state, incidental Supervision of high risk in second trimester (HCC) Unspecified high-risk [facility] Diagnosis Encounter for follow-up ultrasound of anatomy (HCC)- Primary 23 weeks gestation of (HCC) state, incidental [facility] Diagnosis Supervision of high risk in second trimester (HCC)- Primary Unspecified high-risk 27 weeks gestation of (HCC) state, incidental Obesity in (HCC) Obesity complicating , childbirth, or the puerperium, unspecified as to episode of care or not applicable [facility] [id number] adverse effect of medication, initial encounter- Primary [facility] Diagnosis Supervision of high risk in second trimester (HCC)- Primary Unspecified high-risk 29 weeks gestation of (HCC) state, incidental Obesity in (HCC) Obesity complicating , childbirth, or the puerperium, unspecified as to episode of care or not applicable Need for vaccination Need for prophylactic vaccination and inoculation against unspecified single disease [facility] Diagnosis Supervision of high risk in third trimester (HCC)- Primary Unspecified high-risk 31 weeks gestation of ([facility]) state, incidental Obesity in (HCC) Obesity complicating , childbirth, or the puerperium, unspecified as to episode of care or not applicable [facility] Diagnosis 33 weeks gestation of (HCC)- Primary state, incidental Supervision of high risk in third trimester (HCC) Unspecified high-risk Obesity in (HCC) Obesity complicating , childbirth, or the puerperium, unspecified as to episode of care or not applicable [facility] Diagnosis Supervision of high risk in third trimester (HCC)- Primary Unspecified high-risk Obesity in (HCC) Obesity complicating , childbirth, or the puerperium, unspecified as to episode of care or not applicable 34 weeks gestation of ([facility]) state, incidental [facility] Diagnosis Supervision of high risk in third trimester (HCC)- Primary Unspecified high-risk 35 weeks gestation of (HCC) state, incidental Obesity in (HCC) Obesity complicating , childbirth, or the puerperium, unspecified as to episode of care or not applicable Encounter for supervision of normal first in second trimester (HCC) Supervision of normal first [facility] Diagnosis Supervision of high risk in third trimester (HCC)- Primary Unspecified high-risk Obesity in (HCC) Obesity complicating , childbirth, or the puerperium, unspecified as to episode of care or not applicable 36 weeks gestation of ([facility]) state, incidental [facility] Diagnosis 37 weeks gestation of (HCC)- Primary state, incidental Supervision of high risk in third trimester (HCC) Unspecified high-risk Obesity in (HCC) Obesity complicating , childbirth, or the puerperium, unspecified as to episode of care or not applicable [facility] Obesity in (HCC)- Primary Obesity complicating , childbirth, or the puerperium, unspecified as to episode of care or not applicable 38 weeks gestation of (HCC) state, incidental [facility] Diagnostic Procedure Only (Routine) - New Request Specialty Diagnoses / Procedures Referred By Sanjay downing Referred To Contact [facility] [place] Diagnoses Screening, , for anatomic survey Procedures OBSTETRIC ULTRASOUND WHI US PREG UTERUS AFTER 1ST TRIMEST GESTATION Calli Guerrero MD [address] [place] [address] [facility] [address] [place] [address] Referral ID Status Reason Start Date Expiration Date Visits Requested Visits Authorized [id number] New Request Auto-Generat ed Referral 06/19/2024 06/19/2025 1 1 [facility] Summary Purpose Family History No Family History [...] or prosecute any alcohol or drug abuse patient.[facility] CenterIn the event this information is protected by the Federal Confidentiality of Alcohol and Drug Abuse Patient Records regulations: The Federal rules restrict any use of the information to criminally investigate or prosecute any alcohol or drug abuse patient.[facility] CenterIn the event this information is protected by the Federal Confidentiality of Alcohol and Drug Abuse Patient Records regulations: The Federal rules restrict any use of the information to criminally investigate or prosecute any alcohol or drug abuse patient.[facility] CenterIn the event this information is protected by the Federal Confidentiality of Alcohol and Drug Abuse Patient Records regulations: The Federal rules restrict any use of the information to criminally investigate or prosecute any alcohol or drug abuse patient.[facility] CenterIn the event this information is protected by the Federal Confidentiality of Alcohol and Drug Abuse Patient Records regulations: The Federal rules restrict any use of the information to criminally investigate or prosecute any alcohol or drug abuse patient.[facility] CenterIn the event this information is protected by the Federal Confidentiality of Alcohol and Drug Abuse Patient Records regulations: The Federal rules restrict any use of the information to criminally investigate or prosecute any alcohol or drug abuse patient.[facility] CenterIn the event this information is protected by the Federal Confidentiality of Alcohol and Drug Abuse Patient Records regulations: The Federal rules restrict any use of the information to criminally investigate or prosecute any alcohol or drug abuse patient.[facility] CenterIn the event this information is protected by the Federal Confidentiality of Alcohol and Drug Abuse Patient Records regulations: The Federal rules restrict any use of the information to criminally investigate or prosecute any alcohol or drug abuse patient.[facility] CenterIn the event this information is protected by the Federal Confidentiality of Alcohol and Drug Abuse Patient Records regulations: The Federal rules restrict any use of the information to criminally investigate or prosecute any alcohol or drug abuse patient.[facility] CenterIn the event this information is protected by the Federal Confidentiality of Alcohol and Drug Abuse Patient Records regulations: The Federal rules restrict any use of the information to criminally investigate or prosecute any alcohol or drug abuse patient.[facility] CenterIn the event this information is protected by the Federal Confidentiality of Alcohol and Drug Abuse Patient Records regulations: The Federal rules restrict any use of the information to criminally investigate or prosecute any alcohol or drug abuse patient.[facility] CenterIn the event this information is protected by the Federal Confidentiality of Alcohol and Drug Abuse Patient Records regulations: The Federal rules restrict any use of the information to criminally investigate or prosecute any alcohol or drug abuse patient.[facility] CenterIn the event this information is protected by the Federal Confidentiality of Alcohol and Drug Abuse Patient Records regulations: The Federal rules restrict any use of the information to criminally investigate or prosecute any alcohol or drug abuse patient.[facility] CenterIn the event this information is protected by the Federal Confidentiality of Alcohol and Drug Abuse Patient Records regulations: The Federal rules restrict any use of the information to criminally investigate or prosecute any alcohol or drug abuse patient.[facility] CenterIn the event this information is protected by the Federal Confidentiality of Alcohol and Drug Abuse Patient Records regulations: The Federal rules restrict any use of the information to criminally investigate or prosecute any alcohol or drug abuse patient.[facility] CenterIn the event this information is protected by the Federal Confidentiality of Alcohol and Drug Abuse Patient Records regulations: The Federal rules restrict any use of the information to criminally investigate or prosecute any alcohol or drug abuse patient.[facility] CenterIn the event this information is protected by the Federal Confidentiality of Alcohol and Drug Abuse Patient Records regulations: The Federal rules restrict any use of the information to criminally investigate or prosecute any alcohol or drug abuse patient.[facility] CenterIn the event this information is protected by the Federal Confidentiality of Alcohol and Drug Abuse Patient Records regulations: The Federal rules restrict any use of the information to criminally investigate or prosecute any alcohol or drug abuse patient.[facility] CenterIn the event this information is protected by the Federal Confidentiality of Alcohol and Drug Abuse Patient Records regulations: The Federal rules restrict any use of the information to criminally investigate or prosecute any alcohol or drug abuse patient.[facility] CenterIn the event this information is protected by the Federal Confidentiality of Alcohol and Drug Abuse Patient Records regulations: The Federal rules restrict any use of the information to criminally investigate or prosecute any alcohol or drug abuse patient.[facility] Reason for Visit (unrecogniz ed section and content) Reason Comments New OB Reason Onset Date Comments Care 06/19/2024 Reason Onset Date Comments Care 07/17/2024 Reason Onset Date Comments Care 08/14/2024 Reason Comments US Specialty Diagnoses / Procedures Referred By Contac t Referred To Contact [facility] [place] Screening, , for anatomic survey Procedures OBSTETRIC ULTRASOUND WHI US PREG UTERUS AFTER 1ST TRIMEST GESTATION Calli Guerrero MD [address] [place] [address] Phone: tel: fax: [address] [phone] Referral ID Status Reason Start Date Expiration Date V isits Requested Visits Authorized [id number] Closed Auto-Generate d Referral 06/19/2024 06/19/2025 1 1 Reason Onset Date Comments Care 09/10/2024 Specialty Diagnoses / Procedures Referred By Contac t Referred To Contact [facility] [place]oses Encounter for follow-up ultrasound of anatomy (HCC) Procedures OBSTETRIC ULTRASOUND WHI US PREG UTERUS AFTER 1ST TRIMEST GESTATION Calli Guerrero MD [address] [place] [address] Phone: tel: fax: [facility] [address] [place] [phone] Referral ID Status Reason Start Date Expiration Date V isits Requested Visits Authorized [id number] Closed Auto-Generate d Referral 08/18/2024 08/18/2025 1 [...] and content) DATE CREATED AUTHOR 10/28/2024 [facility] DATE CREATED AUTHOR AUTHOR'S ORGANIZ ATION 01/03/2025 [facility] FOR RECORDS PERTAINING TO PATIENTS WHO ARE [...] BE BASED ON THE PRIMARY CLINICAL RECORDS. [facility]. provides no warranty or guarantee of the accuracy or completeness of information in this document.
[2025-01-03 19:31] VITALS: BP 146/79; PULSE 87; RESP 16; TEMP 36.9; O2SAT 97
[2025-01-03 20:39] LABS: Hematocrit 35.0 % (37-47); Hemoglobin 11.7 g/dL (12.0-15.0); Mean Corp Hgb Conc 33.4 g/dL (32-36); Mean Corpuscular Volume 84.5 fL (81-99); Mean Platelet Vol. 11.0 fl (6.2-12.0); Platelet Count 236 K/mm3 (150-450); RBC Distribution Width CV 13.9 % (11.6-14.6); RBC Distribution Width SD 42.6 fl (35.1-43.9); Red Blood Count 4.14 M/mm3 (4.2-5.4); White Blood Count 12.2 K/mm3 (4.4-11.0)
[2025-01-03 21:09] LABS: AST(SGOT) 16 U/L (<=31); Alanine Aminotransfer ALT/SGPT 14 U/L (<=34); Estimated Creatinine Clearance 210.49 ml/min (50-250); Syphilis Antibodies Nonreactive (Nonreactive)
[2025-01-03 21:13] VITALS: BP 114/57; PULSE 72
[2025-01-03 21:57] LABS: Uric Acid 4.1 mg/dL (2.6-6.0)
[2025-01-03 22:03] LABS: Creatinine, Urine (random) 210.00 mg/dL (28.00-217.00); Protein, Urine (Random) 17.1 mg/dL (0.0-12.0); Protein:Creat Ratio 81 mg/g CRE (0-200)
[2025-01-04] VITALS (69 sets, daily range): BP systolic 111–198; BP diastolic 54–81; PULSE 76–111; RESP 16–18; TEMP 36.1–37.1; O2SAT 96–100
[2025-01-04] MEDS: 0.9% Saline Lock 10 ML Syringe IV ×2 (00:09→00:28)
[2025-01-04] MEDS: Lactated Ringers 1,000 ML 50 ML IV (05:06)
[2025-01-04] MEDS: Oxytocin 15 Units/NS 250ml 15 UNITS/250 ML IV.SOLN 2 UNITS IV (05:48)
--- NOTE | 2025-01-04 08:36 | PCM.HP.OB ---
HPI - General General Date of Admission: 01/03/25 Date of Service: 01/04/25 Chief Complaint: IOL HPI Narrative XAVIER KING, is a 29 F who presents elective IOL at 40+2. Maternal Data Information Final GARY: 01/01/25 Gestational age: 40+2 PFSH PFSH Home Medications ?Medication ?Instructions ?Recorded ?Last Taken ?Type Tylenol 1 g PO/SL X1 03/01/21 Unknown History aspirin 81 mg tablet,delayed 81 mg PO DAILY 01/03/25 01/02/25 History release vit no.95-ferrous 1 tab PO DAILY 01/03/25 01/02/25 History fumarate 28 mg-folic acid 800 mcg tablet () Allergy/AdvReac Type Severity Reaction Status Date / Time No Known Drug Allergies Allergy none Verified 01/03/25 20:26 Surgical History History of surgery Social History Smoking Status: Never smoker History Elective abortions Hx Para 0 Spontaneous abortions Hx # Term Pregnancies Ectopic pregnancies Hx # Pregnancies Multiple births # of living children NST FHR Rate Baby A Baseline: 140 Variability:: Moderate Accelerations:: 15 x 15 Decelerations:: None NST Reactive:: Yes FHR Category:: Category I Uterine Activity:: q 4 ROS Constitutional Constitutional: Denies fatigue, fever(s) or malaise Eyes Eyes: Denies change in vision ENT HEENT: Denies dizziness or headache(s) Cardiovascular Cardiovascular: Denies chest pain, dyspnea or lightheadedness Respiratory/Chest Respiratory/Chest: Denies cough or dyspnea Gastrointestinal Gastrointestinal: Denies change in bowel habits Genitourinary Genitourinary: Denies burning urination or genital lesions Integumentary Integumentary: Denies rash Neurologic Neurologic: Denies confusion, dizziness, headache(s), numbness or weakness Vital Signs Vital Signs Vital Signs: 01/03/25 19:31 01/03/25 19:31 01/03/25 19:31 Temperature Temperature Source Pulse Rate 87 Respiratory Rate Blood Pressure 146/79 H BP Systolic 146 BP Diastolic 79 Pulse Ox 97 01/03/25 19:31 01/03/25 19:31 01/03/25 19:31 Temperature 98.4 F Temperature Source Oral Pulse Rate Respiratory Rate 16 Blood Pressure BP Systolic BP Diastolic Pulse Ox 01/03/25 21:13 01/03/25 21:13 01/04/25 00:33 Temperature Temperature Source Pulse Rate 72 81 Respiratory Rate Blood Pressure 114/57 L BP Systolic 114 BP Diastolic 57 Pulse Ox 01/04/25 00:33 01/04/25 00:34 01/04/25 00:34 Temperature Temperature Source Pulse Rate 79 Respiratory Rate Blood Pressure 117/65 BP Systolic 117 BP Diastolic 65 Pulse Ox 97 01/04/25 04:34 01/04/25 04:34 01/04/25 04:34 Temperature Temperature Source Pulse Rate 81 81 Respiratory Rate Blood Pressure 122/63 H BP Systolic 122 BP Diastolic 63 Pulse Ox 01/04/25 04:34 01/04/25 04:34 01/04/25 04:34 Temperature Temperature Source Oral Pulse Rate Respiratory Rate 16 Blood Pressure BP Systolic BP Diastolic Pulse Ox 97 01/04/25 04:34 01/04/25 07:26 01/04/25 07:26 Temperature 98.1 F Temperature Source Pulse Rate 82 Respiratory Rate Blood Pressure 123/60 H BP Systolic 123 BP Diastolic 60 Pulse Ox 01/04/25 07:28 01/04/25 07:28 01/04/25 07:28 Temperature Temperature Source Temporal Pulse Rate Respiratory Rate 16 Blood Pressure BP Systolic BP Diastolic Pulse Ox 97 01/04/25 07:28 01/04/25 07:28 01/04/25 07:28 Temperature 97.4 F L Temperature Source Temporal Pulse Rate Respiratory Rate 16 Blood Pressure BP Systolic BP Diastolic Pulse Ox 01/04/25 07:28 01/04/25 07:28 Temperature 97.4 F L Temperature Source Pulse Rate Respiratory Rate Blood Pressure BP Systolic BP Diastolic Pulse Ox 97 Weight Weight: 108.953 kg Body Mass Index (BMI) 36.5 Physical Exam Const alert and no apparent distress General Appearance: cooperative HEENT normocephalic Resp normal respiratory effort Cardio regular rate GI soft to palpation GI Narrative: gravid, nontender, appropriate for gestational age Extremity no calf tenderness General Extremity: edema Skin no wounds Rashes: No rashes noted Psych activity/motor behavior normal Labs Labs Labs: Blood Type O POSITIVE Antibody Screen NEGATIVE Hct 35.0 % (37-47) L Hgb 11.7 g/dL (12.0-15.0) L Syphilis Total Ab Nonreactive (Nonreactive) Assessment & Plan (1) Elective induction of labor planned: (2) 40 weeks gestation of : PLAN: Plan Epidural prn Pitocin per protocol GBS negative
--- NOTE | 2025-01-04 08:39 | PN.OBGYN_ITS ---
Subjective Subjective AROM for clear fluid. 08/01/0/-2 soft posterior. Cat I Desires epidural. Objective Data Objective Data Vital Signs: Vital Signs Temp Pulse Resp BP Pulse Ox 97.4 F L 82 16 123/60 H 97 01/04/25 07:28 01/04/25 07:26 01/04/25 07:28 01/04/25 07:26 01/04/25 07:28 Weight: 108.953 kg Body Mass Index (BMI) 36.5 Intake & Output: Intake and Output for Last 24 Hours 01/02/25 01/03/25 01/04/25 23:59 23:59 23:59 Intake Total 5.83 / 5.83 Balance 5.83 / 5.83 Lab / Micro Data 01/03/25 20:10 01/03/25 20:10 Labs: Laboratory Results - last 24 hr 01/03/25 20:10: WBC 12.2 H, RBC 4.14 L, Hgb 11.7 L, Hct 35.0 L, MCV 84.5, MCH 28.3, MCHC 33.4, RDW Std Deviation 42.6, RDW Coeff of Nicko 13.9, Plt Count 236, MPV 11.0, Creatinine 0.51 L, Estim Creat Clear Calc 210.49, Est GFR (MDRD) Non- Af 130, Uric Acid 4.1, AST 16, ALT 14, Syphilis Total Ab Nonreactive, Blood Type O POSITIVE, Antibody Screen NEGATIVE 01/03/25 21:05: U Random Total Protein 17.1 H, Urine Creatinine 210.00, Protein/Creatinin Ratio 81 NST FHR Rate Baby A Baseline: 140 Variability:: Moderate Accelerations:: 15 x 15 Decelerations:: None FHR Category:: Category I Uterine Activity:: q 3 Assessment & Plan (1) 40 weeks gestation of : (2) Elective induction of labor planned: PLAN: Plan Pit per protocol GBS negative Epidural planned
[2025-01-04] MEDS: Lactated Ringers 1,000 ML 999 ML IV (08:42)
[2025-01-04] MEDS: fentaNYL-bupivacaine (epidural) 100 ML BAG EPIDURAL ×3 (09:34→18:57)
[2025-01-04] MEDS: Lactated Ringers 1,000 ML 200 ML IV ×2 (13:53→18:58)
[2025-01-04] MEDS: Oxytocin 15 Units/NS 250ml 15 UNITS/250 ML IV.SOLN 334 UNITS IV (20:37)
--- NOTE | 2025-01-04 20:50 | EX.PCM.OBVAG ---
Assessment & Plan (1) (spontaneous vaginal delivery): Maternal Data Information Final GARY: 01/02/25 Gestational age: 40+2 Vaginal Delivery Maternal Presentation Maternal Presentation: Elective Induction Type of Induction: Pitocin, [place] Bulb and Amniotomy Vaginal Delivery Information Procedure Performed: Spontaneous Vaginal Delivery Surgeon/Practitioner: Calli Guerrero Date of Procedure: 01/04/25 Pre-Procedure Diagnosis: Term Post-Procedure Diagnosis: Type of anesthesia: Epidural Estimated Blood Loss: 200 Time of Delivery: 20:34 Findings Description of procedure: Elective Induction of labor. AROM at 3 cm and pitocin per protocol. Epidural was placed. Once complete patient began pushing. She delivered the vertex over an intact perineum. The shoulders and body were immediately forthcoming. The cord was against the chest but not entangled. The was placed on the maternal abdomen. The cord was clamped and cut after one minute. Cord blood was collected. The placenta delivered with gentle traction. A 1st degree laceration was repaired with 2-0 Vicryl. All sponge, needle and instrument counts were correct Presentation: Vertex and MYLES Amniotic Membrane Rupture Type: Artificial Amniotic Fluid Description: Clear and Other (terminal mec) Placental Delivery Description: Spontaneous Placenta Disposition: [facility] Specimen collected: No Cord Vessel Description: 3 Vessels Cord Entanglement: None A Gender: Female (1 minute): 8 (5 minute): 9 Delayed Cord Clamping: Yes Christian Education Director psychology instructor: No Post Vaginal Deli Medications given after delivery: IV Pitocin Episiotomy Description: None Laceration: Midline and 1st degree Complication Complications: No
[2025-01-04] MEDS: Oxytocin 15 Units/NS 250ml 15 UNITS/250 ML IV.SOLN 83 UNITS IV (21:11)
[2025-01-05 03:50] VITALS: BP 99/63; PULSE 96; RESP 18; TEMP 36.7; O2SAT 97
--- NOTE | 2025-01-05 06:40 | PCM.PN.OB ---
Subjective Subjective Doing well. Ambulating and voiding without difficulty. Mild lochia. Breast feeding. Objective Data Objective Data Vital Signs: Vital Signs Temp Pulse Resp BP Pulse Ox O2 Del Method 98.0 F 96 18 99/63 97 Room Air 01/05/25 03:50 01/05/25 03:50 01/05/25 03:50 01/05/25 03:50 01/05/25 03:50 01/05/25 03:50 Oxygen Delivery Method Room Air Weight: 108.953 kg Body Mass Index (BMI) 36.5 Intake & Output: Intake and Output for Last 24 Hours 01/03/25 01/04/25 01/05/25 23:59 23:59 23:59 Intake Total 3628.24 / 3628.24 250 / 250 Output Total 1000 / 1000 700 / 700 Balance 2628.24 / 2628.24 -450 / -450 Lab / Micro Data 01/03/25 20:10 01/03/25 20:10 ROS Constitutional Constitutional: Denies headache(s) Cardiovascular Cardiovascular: Denies chest pain or dyspnea Gastrointestinal Gastrointestinal: Denies nausea or vomiting Genitourinary Genitourinary: Denies dysuria Physical Exam Const alert, oriented x3 and no apparent distress General Appearance: cooperative and comfortable Eyes PERRL and EOMs intact bilaterally Resp normal respiratory effort GI soft to palpation and non-tender Uterus Palpation: uterus fundus firm ( below umbilicus) Extremity normal to inspection and full ROM Neuro oriented x3 and CN's II-XII intact bilaterally Psych mental status grossly normal Assessment & Plan (1) (spontaneous vaginal delivery): PLAN: Plan Breast feeding Routine pp care
[2025-01-05 08:00] VITALS: BP 112/74; PULSE 80; RESP 16; TEMP 36.1; O2SAT 97
[2025-01-05 12:08] VITALS: BP 100/61; PULSE 86; RESP 18; TEMP 36.4; O2SAT 96
[2025-01-05 15:41] VITALS: BP 113/67; PULSE 84; RESP 16; TEMP 36.4
[2025-01-05] MEDS: Senna/Docusate Sodium 1 Tablet PO (15:49)
[2025-01-05 20:10] VITALS: BP 114/74; PULSE 76; RESP 16; TEMP 36.5; O2SAT 99
[2025-01-06 02:15] VITALS: BP 105/65; PULSE 83; RESP 16; TEMP 36.8; O2SAT 97
[2025-01-06] MEDS: Senna/Docusate Sodium 1 Tablet PO (05:39)
[2025-01-06 08:25] VITALS: BP 133/87; PULSE 104; RESP 16; TEMP 36.2; O2SAT 98
--- NOTE | 2025-01-06 09:34 | DCINST_ITS ---
Discharge Instructions DC O2, CPAP, BIPAP needs Home O2 Discharge instructions: No Dressing / Incision May resume sexual activity in: 6 weeks Follow Up Care Please Follow Up With: Argelia Garcia MD When: Follow up with our office in 1-2 and 6 weeks or as needed. [phone] Test Results: Test results from this visit will be discussed in further detail at your follow- up appointment, if applicable. Discharge Plan Admission Admit Date/Time: 01/03/25 19:19 Primary Reason for Your Visit: Vaginal delivery Attending Provider: Calli Guerrero Primary Care Provider: Care Physician,Swetha Primary Discharge Orders/Prescriptions Prescriptions: Continued Tylenol 1 g PO/SL X1 PNV cmb#95-ferrous fumarate-FA [] 28 mg iron- 800 mcg tablet 1 tab PO DAILY Discontinued aspirin 81 mg tablet,delayed release (DR/EC) 81 mg PO DAILY Referrals / Follow Up: Care Physician,No Primary [Primary Care Provider] - Disposition Disposition (needs filled in before D/C Order can be placed): Home, Self Care
--- NOTE | 2025-01-06 09:34 | PCM.PN.BLA ---
Progress Note Pain well-controlled average lochia. Physical Exam Const alert and no apparent distress Narrative: Fundus firm, below umbilicus. Assessment & Plan Assessment/Plan (1) (spontaneous vaginal delivery): PLAN: Plan day #2 is breast-feeding and doing well. Patient desires discharge home. She was given routine instructions and follow-up in the office in 1-2 and 6 weeks or as needed.
--- NOTE | 2025-01-06 09:35 | PCM.DC.SUM ---
Providers Date of Admission: 01/03/25 Primary Care Physician: Swetha Primary Care Phys Reason For Visit: VAG Diagnosis Discharge Diagnosis (1) (spontaneous vaginal delivery): Status: Acute Code(s): O80 - Encounter for full-term uncomplicated delivery Plan day #2 is breast-feeding and doing well. Patient desires discharge home. She was given routine instructions and follow-up in the office in 1-2 and 6 weeks or as needed. Medications at Discharge Home Medications Tylenol 1 g PO/SL X1 03/01/21 vit no.95-ferrous fumarate 28 mg-folic acid 800 mcg tablet () 1 tab PO DAILY 01/03/25 Hospital Course Operations None Procedures - (Vaginal delivery on 01/04/2025) Summary of Care Provided Minutes Spent on Discharge: 12 Hospital Course: Patient was admitted for elective induction of labor. She has spontaneous vaginal delivery on 01/04/2025. By day #2 she was ambulating, urinating tolerating regular diet without difficulty is ready for discharge home with routine instructions and follow-up. She is to follow-up in the office in 1-2 and 6 weeks or as needed. Weight / BMI Weight Weight: 108.953 kg Body Mass Index (BMI) 36.5 ABG / Lab / Microbiology Data 01/03/25 20:10 01/03/25 20:10 D/C Instructions May resume sexual activity in: 6 weeks DC O2, CPAP, BIPAP Needs Home O2 Discharge instructions: No Please Follow Up With: Argelia Garcia MD When: Follow up with our office in 1-2 and 6 weeks or as needed. [phone] Meaningful Use Info Meaningful Use Meaningful Use Diagnoses (Choose all that apply): None applicable Discharge Plan Admission Admit Date/Time: 01/03/25 19:19 Primary Reason for Your Visit: Vaginal delivery Attending Provider: Calli Guerrero Primary Care Provider: Care Physician,Swetha Primary Discharge Orders/Prescriptions Prescriptions: Continued Tylenol 1 g PO/SL X1 PNV cmb#95-ferrous fumarate-FA [] 28 mg iron- 800 mcg tablet 1 tab PO DAILY Discontinued aspirin 81 mg tablet,delayed release (DR/EC) 81 mg PO DAILY Referrals / Follow Up: Care Physician,No Primary [Primary Care Provider] - Disposition Disposition (needs filled in before D/C Order can be placed): Home, Self Care
[2025-01-06 14:00] VITALS: BP 124/77; PULSE 94; RESP 16; TEMP 36.1; O2SAT 100
== END 2025-01-06 17:30 | disposition home or self-care (01) | DRG 807 ==
PROVIDERS: Advanced Practice Midwife; Admitting Provider Obstetrics & Gynecology; Visit Provider Obstetrics & Gynecology
DX: O48.0 Post-term pregnancy (principal); Z37.0 Single live birth; O70.0 First degree perineal laceration during delivery; Z3A.40 40 weeks gestation of pregnancy
CPT/HCPCS: 59025; 59050; 82565; 82570; 84156; 84450; 84460; 84550; 85027; 86780; 86850; 86900; 86901; 99221; A4216; G0378; J2405